=== PATIENT | male | born 1965 | race Caucasian/White ===

== ENCOUNTER 2020-02-26 07:26 | Outpatient (REF) | payer OTHER, SELFPAY ==
[2020-02-26 08:26] LABS: Hemoglobin 14.9 g/dl (14.0-18.0); Mean Corpuscular HGB Conc 33.1 g/dl (31.0-36.0); Mean Corpuscular Hemoglobin 29.7 pg (27.0-33.0); Mean Corpuscular Volume 89.6 fL (80-98); Mean Platelet Volume 10.3 fL (9.4-12.4); Platelet Count 195 X10*3/uL (160-400); Red Blood Count 5.02 X10*6/uL (4.60-5.80); Red Cell Distribution Width 12.5 % (11.0-16.0)
[2020-02-26 08:57] LABS: Alanine Aminotransferase 28 U/L (0-40); Albumin Level 4.2 g/dL (3.5-5.0); Alkaline Phosphatase 75 U/L (39-117); Anion Gap 10 (12-20); Aspartate Amino Transferase 18 U/L (5-37); Bilirubin Total 1.4 mg/dL (0.0-1.0); Blood Urea Nitrogen 25 mg/dL (9-16); Calcium 8.2 mg/dL (8.4-10.2); Carbon Dioxide 31 mmol/L (22-29); Chloride 104 mmol/L (96-108); Cholesterol 183 mg/dL; Estimated Glomerular Filt Rate > 60; Glucose Fasting 95 mg/dL (60-99); HDL Cholesterol 44 mg/dL; LDL Cholesterol Calculated 124 mg/dl; Potassium 4.6 mmol/l (3.3-5.1); Sodium 140 mmol/L (135-145); Total Protein 6.9 g/dL (6.5-8.0); Triglycerides 77 mg/dL
[2020-02-26 09:19] LABS: Prostate Specific Antigen Scr 0.48 ng/mL (<0.05-4.0)
[2020-02-26 09:58] LABS: Glucose Urine UA NEG (NEG); Leukocyte Esterase Urine NEG (NEG); Nitrite Urine NEG (NEG); PH 6.5 (5.0-8.0); Specific Gravity - Urine 1.025 (1.005-1.025); Urine Blood NEG (NEG); Urine Ketones NEG (NEG); Urine Protein NEG (NEG-TRACE)
[2020-02-26 10:03] LABS: Appearance Urine CLEAR; Color Urine YELLOW
[2020-02-26 10:54] LABS: RBC Urine 0-2 /HPF (0); WBC Urine 0-2 /HPF (0-4)
[2020-02-26 10:55] LABS: Mucus Urine 1+ /LPF
== END 2020-02-26 07:27 | disposition home or self-care (01) ==
LOC: HO.LAB 07:26
PROVIDERS: PCP Internal Medicine; Visit Provider Internal Medicine
DX: Z00.00 Encounter for general adult medical examination without abnormal findings (principal); N40.0 Benign prostatic hyperplasia without lower urinary tract symptoms
CPT/HCPCS: 36415; 80053; 80061; 81001; 84153; 85027

== ENCOUNTER 2021-10-24 14:05 | Outpatient (REF) | payer OTHER, SELFPAY ==
[2021-10-24 16:35] LABS: MANUAL DIFF FLAG NO
[2021-10-24 16:43] LABS: Basophils Absolute Auto 0.1 X10*3/uL (0.0-0.2); Eosinophils Absolute Auto 0.2 X10*3/uL (0.0-0.4); Eosinophils Percent Auto 3.1 % (0-4); Hematocrit 45.3 % (42.0-52.0); Hemoglobin 15.6 g/dl (14.0-18.0); Imm Gran Abs Auto 0.03 X10*3/uL (0.00-0.03); Imm Gran Pct Auto 0.4 % (0.0-0.4); Lymphocytes Absolute Auto 1.7 X10*3/uL (1.2-4.9); Lymphocytes Percent Auto 23.6 % (20-40); Mean Corpuscular HGB Conc 34.4 g/dl (31.0-36.0); Mean Corpuscular Hemoglobin 30.1 pg (27.0-33.0); Mean Corpuscular Volume 87.5 fL (80.0-98.0); Mean Platelet Volume 10.7 fL (9.4-12.4); Monocytes Absolute Auto 0.7 X10*3/uL (0.1-1.2); Monocytes Percent Auto 9.8 % (2-11); Neutrophils Absolute Auto 4.4 x10*3/uL (2.0-8.3); Neutrophils Percent Auto 62.1 % (45-73); Platelet Count 180 X10*3/uL (160-400); Red Blood Count 5.18 X10*6/uL (4.60-5.80); Red Cell Distribution Width 12.7 % (11.0-16.0); White Blood Count 7.1 X10*3/uL (4.8-10.8)
[2021-10-24 16:43] LABS: Appearance Urine HAZY; Color Urine YELLOW; Glucose Urine UA NEG (NEG); Leukocyte Esterase Urine NEG (NEG); Nitrite Urine NEG (NEG); Specific Gravity - Urine >= 1.030 (1.005-1.025); Urine Blood TRACE (NEG); Urine Ketones NEG (NEG); Urine Protein NEG (NEG-TRACE)
[2021-10-24 16:55] LABS: Mucus Urine 2+ /LPF; Squamous Epithelial Cell Urine TRACE /LPF; WBC Urine 0 /HPF (0-4)
[2021-10-24 17:32] LABS: Alanine Aminotransferase 41 U/L (0-40); Albumin Level 4.3 g/dL (3.5-5.0); Alkaline Phosphatase 90 U/L (39-117); Anion Gap 12 (12-20); Aspartate Amino Transferase 25 U/L (5-37); Bilirubin Total 1.3 mg/dL (0.0-1.0); Blood Urea Nitrogen 25 mg/dL (9-16); Calcium 8.9 mg/dL (8.4-10.2); Carbon Dioxide 27 mmol/L (22-29); Chloride 104 mmol/L (96-108); Cholesterol 218 mg/dL; Estimated Glomerular Filt Rate > 60; Glucose Fasting 91 mg/dL (60-99); HDL Cholesterol 45 mg/dL; LDL Cholesterol Calculated 143 mg/dl; Potassium 4.5 mmol/L (3.3-5.1); Sodium 138 mmol/L (135-145); Total Protein 7.2 g/dL (6.5-8.0); Triglycerides 150 mg/dL
[2021-10-24 17:53] LABS: PSA,Total (Free>4and<10) 0.63 ng/mL (0.00-4.00)
== END 2021-10-24 14:06 | disposition home or self-care (01) ==
LOC: HO.HMGCLDS 14:05
PROVIDERS: Visit Provider Internal Medicine
DX: Z00.00 Encounter for general adult medical examination without abnormal findings (principal); Z12.5 Encounter for screening for malignant neoplasm of prostate
CPT/HCPCS: 36415; 80053; 80061; 81001; 84153; 85025

== ENCOUNTER 2021-11-28 15:22 | Outpatient (REF) | payer OTHER, SELFPAY ==
--- NOTE | ~2021-11-28 | US_ITS ---
EXAMINATION: US RETROPERITONEAL COMPLETE (RENAL) CLINICAL INFORMATION: Hematuria, unspecified. COMPARISON: US retroperitoneal complete (renal) 02/12/2019. US abdomen complete 10/16/2017. TECHNIQUE: Real-time imaging of the kidneys and bladder. FINDINGS: RIGHT KIDNEY: 11.0 x 5.3 x 5.6 cm (SAG x AP x TRV). The kidney is normal in size, contour, and echogenicity. Renal cortical thickness is normal. The right kidney is abnormally rotated with anterior orientation of the renal pelvis. There is a new hyperechoic mass in the lower pole of the right kidney measuring 2.6 cm. No renal calculi or hydronephrosis. LEFT KIDNEY: 12.9 x 5.8 x 6.3 cm (SAG x AP x TRV). The kidney is normal in size, contour, and echogenicity. Renal cortical thickness is normal. There is a 5 mm echogenic density in the lower pole suggestive of a stone. There is a 1 cm cyst in the midpole. No hydronephrosis. BLADDER: Not optimally distended.. Bilateral ureteral jets are demonstrated. Prevoid bladder volume is 157 mL. Postvoid bladder volume is 11 mL. ADDITIONAL FINDINGS: The prostate gland measures 4.3 x 4.4 x 4.1 cm, volume 41 mL. There are calcifications in the prostate gland. US/US retroperitoneal comp IMPRESSION: New 2.6 cm hyperechoic solid-appearing mass in the lower pole of the right kidney. Appearance is worrisome for neoplasm. Follow-up CT or MRI of the kidneys with and without contrast is recommended. Small left renal stone. Small left renal cyst. Findings will be communicated by the [place] work flow materials supervisor.
== END 2021-11-28 15:23 | disposition home or self-care (01) ==
LOC: HO.HMGCX 15:22
PROVIDERS: PCP Internal Medicine; Visit Provider Internal Medicine
DX: R31.9 Hematuria, unspecified (principal)
CPT/HCPCS: 76770

== ENCOUNTER 2021-12-03 08:11 | Outpatient (REF) | payer OTHER, SELFPAY ==
--- NOTE | ~2021-12-03 | CT_ITS ---
EXAMINATION: CT ABDOMEN AND PELVIS WITHOUT AND WITH CONTRAST CLINICAL INFORMATION: Hematuria. Follow-up left renal mass. COMPARISON: Previous ultrasound 11/28/2021 TECHNIQUE: Noncontrast CT of the abdomen and pelvis is performed followed by split bolus contrast-enhanced images using 85 mL Omnipaque 350 contrast.? Postcontrast imaging is performed during the combined nephrogram and excretion phase. Sagittal and coronal reformatted images were obtained on the technologist's workstation for both the precontrast and postcontrast phases. This CT examination was performed using dose optimization techniques as appropriate, variously including the following: *Automated exposure control *Adjustment of mA and/or kV according to patient size (this includes techniques or standardized protocols for targeted exams where dose is matched to indication/reason for exam; i.e. extremities or head) *Use of iterative reconstruction technique DLP: 1151 mGy-cm FINDINGS: LUNG BASES: The visualized lung bases are unremarkable. LIVER, GALLBLADDER, AND BILIARY TREE: The liver is low in attenuation suggestive of fatty infiltration. No focal liver lesion. Normal gallbladder. No biliary duct dilatation. PANCREAS: Unremarkable. SPLEEN: Unremarkable. ADRENAL GLANDS: Unremarkable. KIDNEYS AND URETERS: There is abnormal rotation of the right kidney with anterior orientation of the renal pelvis. There is a 2.8 x 2.5 cm lesion in the anterior medial lower pole of the right kidney. Hounsfield units precontrast measure 31. Delayed CT urogram Hounsfield units measure 68 suggestive of an enhancing solid lesion. There is a second low-attenuation lesion in the anterior lower pole the right kidney measuring 5 mm. This is difficult to appreciate precontrast. Hounsfield units postcontrast measure 14 axial image 53 series 8 and this probably represents a cyst. There is a third low-attenuation lesion in the upper pole right kidney measuring 8 mm. This is again difficult to visualize precontrast. Hounsfield units postcontrast measure 25 and this may represent a complex cyst axial image 269 series 9. There is a 1 cm cyst in the lower pole of the left kidney. No hydronephrosis is seen. The collecting systems are normal. Ureters are normal. BLADDER: The bladder is normal. GASTROINTESTINAL TRACT: The small and large bowel are unremarkable. The appendix is unremarkable. ABDOMINAL WALL: No significant hernia is appreciated. LYMPH NODES: Normal. VASCULAR: Unremarkable. PELVIC VISCERA: Unremarkable. OSSEUS STRUCTURES: There are degenerative changes of the spine. CT/CT urogram IMPRESSION: 2.8 x 2.5 cm solid renal mass suggestive of neoplasm in the anterior medial lower pole of the right kidney. Bilateral renal cysts. Fatty liver. Findings will be communicated by the [place] work flow tow driver.
[2021-12-03 12:01] LABS: Urine Cytology See Pathology rpt
[2021-12-03 12:06] LABS: Alanine Aminotransferase 38 U/L (0-40); Albumin Level 4.2 g/dL (3.5-5.0); Alkaline Phosphatase 87 U/L (39-117); Anion Gap 14 (12-20); Aspartate Amino Transferase 21 U/L (5-37); Bilirubin Total 1.5 mg/dL (0.0-1.0); Blood Urea Nitrogen 16 mg/dL (9-16); Calcium 8.6 mg/dL (8.4-10.2); Carbon Dioxide 25 mmol/L (22-29); Chloride 103 mmol/L (96-108); Estimated Glomerular Filt Rate > 60; Glucose Random 100 mg/dL (60-115); Sodium 138 mmol/L (135-145); Total Protein 7.2 g/dL (6.5-8.0)
[2021-12-03 12:12] LABS: Appearance Urine CLEAR; Color Urine STRAW; Glucose Urine UA NEG (NEG); Leukocyte Esterase Urine NEG (NEG); Nitrite Urine NEG (NEG); Urine Blood TRACE (NEG); Urine Ketones NEG (NEG); Urine Protein NEG (NEG-TRACE)
[2021-12-03 12:43] LABS: RBC Urine 0-2 /HPF (0); Squamous Epithelial Cell Urine 1+ /LPF; WBC Urine 0-2 /HPF (0-4)
[2021-12-03] MEDS: iohexoL 350 MG/ML 100 ML INFUS..BTL 85 ML IV (15:03)
== END 2021-12-03 08:12 | disposition home or self-care (01) ==
LOC: HO.HMGCLDS 08:11
PROVIDERS: PCP Internal Medicine; Visit Provider Internal Medicine
DX: N28.89 Other specified disorders of kidney and ureter (principal); R31.9 Hematuria, unspecified
CPT/HCPCS: 36415; 74178; 80053; 81001; 88112; 88121

== ENCOUNTER 2021-12-03 13:49 | Outpatient (REF) | payer OTHER, SELFPAY | END 2021-12-03 13:50 | disposition home or self-care (01) | LOC: HO.CT 13:49 | PROVIDERS: PCP Internal Medicine; Visit Provider Internal Medicine | DX: Z13.89 Encounter for screening for other disorder (principal) ==

== ENCOUNTER → 2021-12-13 09:35 | Outpatient (BNVA) | payer OTHER, SELFPAY | PROVIDERS: PCP Internal Medicine; Visit Provider Urology | DX: R32 Unspecified urinary incontinence (principal); N40.0 Benign prostatic hyperplasia without lower urinary tract symptoms; N28.89 Other specified disorders of kidney and ureter | CPT/HCPCS: 51798 ==

== ENCOUNTER 2022-01-10 12:04 | Day surgery (SDC) | payer OTHER, SELFPAY ==
[2022-01-10] VITALS (8 sets, daily range): BP systolic 103–152; BP diastolic 67–99; PULSE 83–93; RESP 16–18; TEMP 36.2–36.7; O2SAT 94–96; BMI 33.2
--- NOTE | ~2022-01-10 | CT_ITS ---
PROCEDURE: CT GUIDED BIOPSY, KIDNEY CLINICAL INFORMATION: Right renal mass COMPARISON: December 03, 2021 and ultrasound of February 12, 2019 TECHNIQUE: CT fluoroscopic-guided core biopsy right renal mass. CONSCIOUS SEDATION: The patient received intravenous conscious sedation under my direct supervision. A registered nurse monitored the patient and the patient's vital signs throughout the procedure. The total sedation time was 22 minutes. A total of 2 mg of Versed and 100 mcg fentanyl was given for good effect. This CT examination was performed using dose optimization techniques as appropriate, variously including the following: *Automated exposure control *Adjustment of mA and/or kV according to patient size (this includes techniques or standardized protocols for targeted exams where dose is matched to indication/reason for exam; i.e. extremities or head) *Use of iterative reconstruction technique DLP: 374 mGy-cm FINDINGS: Informed consent was obtained from the patient prior to the procedure. During this process, the procedure and potential alternatives were explained, along with the intended outcome and benefits. The risks of the procedure, as well as the risk of not doing the procedure, were discussed. The patient was given the opportunity to ask questions regarding the procedure and appeared competent to make medical decisions. A signed consent form which documents this discussion was placed in the medical record. Using sterile technique and CT fluoroscopic guidance from a lateral approach a 17-gauge guiding needle was directed to the mass anterior aspect of the right kidney. 3 18-gauge core biopsies were then performed. Patient tolerated procedure without difficulty. No postprocedure hemorrhage was identified. CT/CT biopsy renal RT IMPRESSION: CT fluoroscopic guided biopsy right renal mass.
[2022-01-10 13:17] LABS: MANUAL DIFF FLAG NO
[2022-01-10 13:21] LABS: Basophils Absolute Auto 0.1 X10*3/uL (0.0-0.2); Basophils Percent Auto 0.9 % (0-2); Eosinophils Absolute Auto 0.3 X10*3/uL (0.0-0.4); Eosinophils Percent Auto 4.6 % (0-4); Hematocrit 45.2 % (42.0-52.0); Hemoglobin 15.6 g/dl (14.0-18.0); Imm Gran Abs Auto 0.01 X10*3/uL (0.00-0.03); Imm Gran Pct Auto 0.2 % (0.0-0.4); Lymphocytes Absolute Auto 1.3 X10*3/uL (1.2-4.9); Lymphocytes Percent Auto 21.9 % (20-40); Mean Corpuscular HGB Conc 34.5 g/dl (31.0-36.0); Mean Corpuscular Hemoglobin 29.5 pg (27.0-33.0); Mean Corpuscular Volume 85.6 fL (80.0-98.0); Mean Platelet Volume 9.7 fL (9.4-12.4); Monocytes Absolute Auto 0.6 X10*3/uL (0.1-1.2); Monocytes Percent Auto 10.4 % (2-11); Neutrophils Absolute Auto 3.5 x10*3/uL (2.0-8.3); Platelet Count 157 X10*3/uL (160-400); Red Blood Count 5.28 X10*6/uL (4.60-5.80); Red Cell Distribution Width 12.6 % (11.0-16.0); White Blood Count 5.7 X10*3/uL (4.8-10.8)
[2022-01-10 13:34] LABS: INTERNATIONAL NORM RATIO 1.1 (0.9-1.1); Prothrombin Time 12.4 SEC (10.0-13.1)
[2022-01-10 13:36] LABS: Partial Thromboplastin Time 32.3 SEC (26.0-36.4)
== END 2022-01-10 17:30 | disposition home or self-care (01) ==
PROVIDERS: Radiology Diagnostic Radiology; PCP Internal Medicine; Visit Provider Radiology Diagnostic Radiology
DX: D30.01 Benign neoplasm of right kidney (principal); N40.0 Benign prostatic hyperplasia without lower urinary tract symptoms; Z80.0 Family history of malignant neoplasm of digestive organs; Z79.899 Other long term (current) drug therapy; Z88.0 Allergy status to penicillin; Z88.1 Allergy status to other antibiotic agents
CPT/HCPCS: 36415; 50200; 77012; 85025; 85610; 85730; 88305; 88341; 88342; 99152; J2250; J3010

== ENCOUNTER 2022-01-14 12:13 | Outpatient (REF) | payer OTHER, SELFPAY ==
[2022-01-14 14:00] LABS: Appearance Urine Clear; Color Urine Yellow; Glucose Urine UA Negative (Negative); Leukocyte Esterase Urine Trace (Negative); Nitrite Urine Negative (Negative); PH 5.5 (5.0-9.0); Specific Gravity - Urine 1.025 (1.005-1.025); UMIC TRIGGER UA YES; Urine Blood Negative (Negative); Urine Ketones Negative (Negative); Urine Protein Negative (Neg-Trace)
[2022-01-14 14:07] LABS: Bacteria Urine None Seen (None Seen); Hyaline Casts Urine 0-2 /LPF (0-2); RBC Urine 0-2 /HPF (0-2); Squamous Epithelial Cell Urine 0-2 /HPF (0-2); WBC Urine 0-5 /HPF (0-5)
== END 2022-01-14 12:14 | disposition home or self-care (01) ==
LOC: HO.HMGCLDS 12:13
PROVIDERS: PCP Internal Medicine; Visit Provider Urology
DX: R31.9 Hematuria, unspecified (principal)
CPT/HCPCS: 81001; 87086

== ENCOUNTER → 2022-08-20 13:11 | Outpatient (BNVA) | payer OTHER, SELFPAY | PROVIDERS: PCP Internal Medicine; Visit Provider Urology | DX: Z13.89 Encounter for screening for other disorder (principal) ==

== ENCOUNTER 2022-08-27 15:07 | Outpatient (REF) | payer OTHER, SELFPAY ==
--- NOTE | ~2022-08-27 | US_ITS ---
EXAMINATION: US RETROPERITONEAL LIMITED (RENAL ONLY) CLINICAL INFORMATION: Calculus of kidney, right renal mass. COMPARISON: CT urogram 12/03/2021. Ultrasound retroperitoneal complete (renal) 11/28/2021 and 02/12/2019. TECHNIQUE: Real-time imaging of the kidneys. FINDINGS: RIGHT KIDNEY: 11.0 x 7.1 x 5.8 cm (SAG x AP x TRV). The kidney is normal in size, contour, and echogenicity. Renal cortical thickness is normal. The right kidney is slightly malrotated. There is a 2.5 x 2.5 x 2.7 cm solid hyperechoic mass in the central mid right kidney. There is a 3 mm echogenic focus with twinkle artifact questionable for a stone in the lower pole. No hydronephrosis. LEFT KIDNEY: 13.4 x 5.6 x 6.1 cm (SAG x AP x TRV). The kidney is normal in size, contour, and echogenicity. Renal cortical thickness is normal. There is a 1 cm cyst in the midpole. There is a 4 mm echogenic focus with twinkle artifact questionable for a stone in the lower pole. No hydronephrosis. US/US renal BI IMPRESSION: 2.5 x 2.5 x. 2.7 cm solid hyperechoic mass in the central mid right kidney. This is not appreciably changed in size from most recent previous ultrasound or CT November 2021. Question small bilateral renal stones.
== END 2022-08-27 15:08 | disposition home or self-care (01) ==
LOC: HO.HMGCX 15:07
PROVIDERS: PCP Internal Medicine; Visit Provider Urology
DX: N20.0 Calculus of kidney (principal); D30.00 Benign neoplasm of unspecified kidney
CPT/HCPCS: 76775

== ENCOUNTER 2023-02-10 06:28 | Outpatient (REF) | payer OTHER, SELFPAY ==
[2023-02-10 12:24] LABS: Blood Urea Nitrogen 21 mg/dL (9-16); Estimated Glomerular Filt Rate > 60
== END 2023-02-10 06:29 | disposition home or self-care (01) ==
LOC: HO.HMGCLDS 06:28
PROVIDERS: PCP Internal Medicine; Visit Provider Urology
DX: D30.00 Benign neoplasm of unspecified kidney (principal)
CPT/HCPCS: 36415; 82565; 84520

== ENCOUNTER 2023-02-13 07:23 | Outpatient (REF) | payer OTHER, SELFPAY ==
--- NOTE | ~2023-02-13 | CT_ITS ---
EXAMINATION: CT ABDOMEN WITHOUT AND WITH CONTRAST CLINICAL INFORMATION: Benign neoplasm of kidney. COMPARISON: Renal ultrasound 08/27/2022, renal biopsy 01/10/2022, CT urogram 12/03/2021. TECHNIQUE: Contiguous axial thin section helical images of the abdomen were performed before and after the administration of oral contrast and 85 mL of Omnipaque 350 intravenous contrast. The data set was reformatted in the coronal and sagittal planes and reviewed on an independent workstation. This CT examination was performed using dose optimization techniques as appropriate, variously including the following: *Automated exposure control *Adjustment of mA and/or kV according to patient size (this includes techniques or standardized protocols for targeted exams where dose is matched to indication/reason for exam; i.e. extremities or head) *Use of iterative reconstruction technique DLP: 938 mGy-cm FINDINGS: LUNG BASES: The visualized lung bases are unremarkable. LIVER, GALLBLADDER, AND BILIARY TREE: The liver is enlarged measuring 19.6 cm in cephalocaudad dimension with decreased attenuation on non-contrast imaging consistent with hepatic steatosis. No focal hepatic lesion or biliary ductal dilatation is present. The gallbladder is unremarkable with no evidence of radiopaque gallstones, gallbladder wall thickening, or obvious pericholecystic inflammatory changes. PANCREAS: Unremarkable. SPLEEN: Unremarkable. ADRENAL GLANDS: Unremarkable. 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 By my measurements on the current study this measures 3.7 x 3.1 x 3.2 cm and on the prior study measured 3.0 x 2.6 x 2.9 cm (5: 1:15 compare prior 8:50). Again seen is a benign 1.3 cm left Bosniak class I renal cyst which needs no additional imaging or followup. No additional solid masses. No nephrolithiasis. No hydronephrosis. GASTROINTESTINAL TRACT: The visualized bowel is unremarkable. ABDOMINAL WALL: No significant hernia is appreciated. LYMPH NODES: No retroperitoneal lymphadenopathy. VASCULAR: Unremarkable. OSSEOUS STRUCTURES: Mild degenerative changes are present in the spine. No bony destructive lesions. CT/CT abdomen wo/w IV con IMPRESSION: The biopsy-proven right renal oncocytoma has increased in size slightly. Incidental note made of an enlarged fatty liver and benign Bosniak class I left renal cyst which needs no additional imaging or followup. Fleischner guidelines were followed.
[2023-02-13] MEDS: iohexoL 350 MG/ML 100 ML INFUS..BTL IV (08:33)
== END 2023-02-13 07:24 | disposition home or self-care (01) ==
LOC: HO.CT 07:23
PROVIDERS: PCP Internal Medicine; Visit Provider Urology
DX: D30.00 Benign neoplasm of unspecified kidney (principal)
CPT/HCPCS: 74170; Q9967

== ENCOUNTER 2023-04-09 12:14 | Outpatient (AMB) | payer OTHER, SELFPAY ==
--- NOTE | 2023-04-09 12:15 | MHC.OFFVIS ---
Intake Intake Visit Reasons: med review/ct results Intake Note: Patient is Present for Telephone Follow Up Med Review Urology Med: Alfuzosin Antibiotic Allergy: Amoxicillin, Penicillin Blood Thinner: None Allergies amoxicillin [AMOXICILLIN] Allergy (Unknown, Verified 04/09/23 12:16) RASH penicillin G Allergy (Unknown, Verified 04/09/23 12:16) Rash finasteride Adverse Reaction (Intermediate, Verified 04/09/23 12:16) LOSS GENITAL SENSATION tamsulosin Adverse Reaction (Intermediate, Verified 04/09/23 12:16) Drowsy Medication List - Last Reconciled 04/09/23 by Kd Arango MD alfuzosin ER 10 mg PO BEDTIME 90 days pantoprazole 40 mg PO DAILY HPI HPI Comments History of Present Illness Details Pineda is a pleasant male. He is a patient of Dr. Streeter. He is seen for the following urologic conditions - lower urinary tract symptoms - renal lesion - oncoytoma Telemedicine Evaluation 15 min Consultation [employer] [place] Video attempted Continue response to alfuzosin Surveillance imaging planned kidneys 12m US Lower urinary tract symptoms Current therapy alfuzosin Prior therapy with alpha-shoaib but had been lightheaded Trial of finasteride with PCP however this led to declined libido Symptoms include nocturia x3, hesitancy, incomplete emptying PSA 11/09 0.63 Renal mass Right renal mass detected during incidental imaging for micro hematuria Cytology 12/10 negative for high-grade Imaging - 12/10 CT urogram 2.6 cm right medial anterior lower question lesion. Enhancement not consistent with RCC - 01/10 renal biopsy oncocytoma Surveillance imaging [facility] Medical History Renal mass Annual physical exam BPH (benign prostatic hyperplasia) Abnormal colonoscopy Surgical History History of removal of cyst Family History Father Stomach cancer Mini stroke Smoker COPD (chronic obstructive pulmonary disease) Mother No problems noted. 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 No major barriers to patient understanding were identified. An opportunity to ask questions regarding the treatment plan was provided. All questions were answered. The patient expressed understanding and agreement with the above treatment plan. The patient is aware they should contact our office by phone for worsening of their current condition or the appearance of new urologic symptoms. Compliance is encouraged with any medications and followup testing that is ordered. It is a privilege to participate in the urologic care of your patient. If you have any questions or concerns regarding treatment for the above conditions, or other urologic issues, please do not hesitate to contact me. The office telephone contact is [phone]. This note is constructed using voice recognition software. While every effort has been made to ensure accuracy head of operation and logistics errors may have been included. Yours sincerely, Dr Kd Arango MD, EDITA 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
== END 2023-04-09 14:16 | disposition home or self-care (01) ==
LOC: HO.HUSH 12:14
PROVIDERS: PCP Internal Medicine; Visit Provider Urology
DX: N40.0 Benign prostatic hyperplasia without lower urinary tract symptoms (principal); D30.00 Benign neoplasm of unspecified kidney
CPT/HCPCS: 99213

== ENCOUNTER → 2023-04-09 12:14 | Outpatient (BNVA) | payer OTHER, SELFPAY | PROVIDERS: PCP Internal Medicine; Visit Provider Urology ==

== ENCOUNTER 2023-07-02 08:14 | Outpatient (AMB) | payer OTHER, SELFPAY ==
--- NOTE | 2023-07-02 08:17 | MHC.PC.OV ---
Vital Signs 07/02/23 08:18 Height 6 ft 1 in Weight 244 lb BMI 32.2 BP 120/74 Blood Pressure Location Lt brachial Position Sitting Pulse 71 Pulse Source Pulse Oximeter Pulse Oximetry (%) 97 Oxygen Delivery Method Room Air Intake Visit Reasons: Annual PE Intake Note: Pt is here today for PE. Allergies amoxicillin [AMOXICILLIN] Allergy (Unknown, Verified 07/02/23 08:20) RASH penicillin G Allergy (Unknown, Verified 07/02/23 08:20) Rash finasteride Adverse Reaction (Intermediate, Verified 07/02/23 08:20) LOSS GENITAL SENSATION tamsulosin Adverse Reaction (Intermediate, Verified 07/02/23 08:20) Drowsy Medication List - Last Reconciled 07/02/23 by Michelle Streeter MD alfuzosin ER 10 mg PO BEDTIME 90 days pantoprazole 40 mg PO DAILY Tobacco use date assessed: 07/02/23 Dental Screening Dental Screen Date: 07/02/23 Did you have a dental visit in the last 12 months?: Yes Did you have a dental problem in the last 6 months where you did not have access to dental care?: No Was dental information given to patient?: Patient has dentist HPI Annual PE HPI Details Pt presents for PE. [facility] Medical History (Updated 07/02/23 @ 09:00 by Michelle Streeter MD) Renal mass Annual physical exam BPH (benign prostatic hyperplasia) Abnormal colonoscopy Surgical History History of removal of cyst Family History Father Stomach cancer Mini stroke Smoker COPD (chronic obstructive pulmonary disease) Mother No problems noted. Maternal Grandmother Lung cancer Social History Household Members Other:: exercise, Housing: House Alcohol intake: current Alcohol intake frequency: holidays/special occasions only Patient Tobacco Use Status: Never used Tobacco e-Cigarette/Vaping Use: Never Used Current occupational status: employed Cognitive needs: No Hearing needs: No Vision needs: Yes Questionnaire Thrive Questionnaire Date Thrive assessed: 10/24/21 I am a: Patient What is your living situation today?: I have a steady place to live Within the past 12 months, did the food you bought not last and you didn't have the money to get more?: Never true Within the past 12 months, did you worry whether your food would run out before you got money to buy more?: Never true THRIVE Score: 0 AUDIT C Alcohol Use Questionnaire (AUDIT-C) 1. How often do you have a drink containing alcohol?: Monthly or less 2. How many drinks containing alcohol do you have on a typical day when you are drinking?: 1 or 2 3. How often do you have six or more drinks on one occasion?: Never Total Score: 1 LESLY-7 AMB Questionnaire LESLY-7 Date LESLY - 7 assessed: 10/24/21 Feeling nervous, anxious, or on edge: 1 = Several days Not being able to stop or control worryin = Several days Worrying too much about different things: 1 = Several days Trouble relaxin = Several days Being so restless that it is hard to sit still: 1 = Several days Becoming easily annoyed or irritable: 0 = Not at all Feeling afraid as if something awful might happen: 1 = Several days Total LESLY-7 score (0-4 normal; 5-9 mild; 10-14 moderate; 15-21 severe): 6 Source: Developed by Drs. Jose Mejia, Dara Cope, Raj Don and colleagues, with an educational kevin from [employer]. Review of Systems Const All systems reviewed & are unremarkable except as noted in HPI and below Reports no additional complaints Eyes Reports no additional complaints ENT Reports no additional complaints Card Reports no additional complaints Resp Reports no additional complaints GI Reports no additional complaints Reports no additional complaints Physical exam (Primary Care) Vital Signs: Last Vital Signs Pulse 71 07/02/23 08:18 BP 120/74 07/02/23 08:18 Pulse Ox 97 07/02/23 08:18 Oxygen Delivery Method Room Air 07/02/23 08:18 BMI result Body Mass Index 32.2 Tobacco/Smoking Status: Tobacco use Status Tobacco use date assessed 07/02/23 07/02/23 08:23 Patient Tobacco Use Status Never used Tobacco 07/02/23 08:23 e-Cigarette/Vaping Use Never Used 07/02/23 08:18 Thrive Assessment: Date of Thrive Assessment Date Thrive assessed 10/24/21 07/02/23 08:18 Const General: no acute distress HENMT Head: Yes normal to inspection Ears: hearing grossly normal bilaterally Eyes General: appearance normal, both eyes and all related structures Neck Neck: Yes no lymphadenopathy and Yes supple Resp Effort & Inspection: normal respiratory effort Auscultation: clear to auscultation bilaterally Cardio Rhythm: regular rhythm Heart sounds: S1 normal heart sound present and S2 normal heart sound present GI Inspection: Yes normal to inspection Palpation (GI): Soft to palpation Percussion: Yes normal to percussion Auscultation: normal bowel sounds Assessment and Plan Assessment & Plan (1) Hematuria: Comment: f/u urology Code(s): R31.9 - Hematuria, unspecified Plan: f/u urology (2) Abnormal colonoscopy: Comment: 06/2019 polyps , Dr.Clifford mora 4 yrs Code(s): R93.3 - Abnormal findings on diagnostic imaging of other parts of digestive tract (3) Annual physical exam: Code(s): Z00.00 - Encounter for general adult medical examination without abnormal findings Plan: well balanced diet regular exercise weight loss discussed with the patient. 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: Comment: 12/10 right lower pole 2.5 cm lesion, f/u urology, CT slightly increase in size 3.7 x3.1x3.2 cm 02/10 Code(s): D30.00 - Benign neoplasm of unspecified kidney Orders: Orders TSH reflex Free T4 Today N40.0 - Benign prostatic hyperplasia without lower urinary tract symptoms, R31.9 - Hematuria, unspecified, R93.3 - Abnormal findings on diagnostic imaging of other parts of digestive tract, Z00.00 - Encounter for general adult medical examination without abnormal findings PSA,Total (Free>4and<10) Today N40.0 - Benign prostatic hyperplasia without lower urinary tract symptoms, R31.9 - Hematuria, unspecified, R93.3 - Abnormal findings on diagnostic imaging of other parts of digestive tract, Z00.00 - Encounter for general adult medical examination without abnormal findings Comprehensive [place]. Panel Fast 365 Days K21.9 - Gastro-esophageal reflux disease without esophagitis, N40.0 - Benign prostatic hyperplasia without lower urinary tract symptoms, Z00.00 - Encounter for general adult medical examination without abnormal findings Complete Blood Count Auto Diff 365 Days K21.9 - Gastro-esophageal reflux disease without esophagitis, N40.0 - Benign prostatic hyperplasia without lower urinary tract symptoms, Z00.00 - Encounter for general adult medical examination without abnormal findings Lipid Panel 365 Days K21.9 - Gastro-esophageal reflux disease without esophagitis, N40.0 - Benign prostatic hyperplasia without lower urinary tract symptoms, Z00.00 - Encounter for general adult medical examination without abnormal findings Comprehensive [place]. Panel Fast Today N40.0 - Benign prostatic hyperplasia without lower urinary tract symptoms, R31.9 - Hematuria, unspecified, R93.3 - Abnormal findings on diagnostic imaging of other parts of digestive tract, Z00.00 - Encounter for general adult medical examination without abnormal findings Complete Blood Count Auto Diff Today N40.0 - Benign prostatic hyperplasia without lower urinary tract symptoms, R31.9 - Hematuria, unspecified, R93.3 - Abnormal findings on diagnostic imaging of other parts of digestive tract, Z00.00 - Encounter for general adult medical examination without abnormal findings Lipid Panel Today N40.0 - Benign prostatic hyperplasia without lower urinary tract symptoms, R31.9 - Hematuria, unspecified, R93.3 - Abnormal findings on diagnostic imaging of other parts of digestive tract, Z00.00 - Encounter for general adult medical examination without abnormal findings UA w Microscopic Today N40.0 - Benign prostatic hyperplasia without lower urinary tract symptoms, R31.9 - Hematuria, unspecified, R93.3 - Abnormal findings on diagnostic imaging of other parts of digestive tract, Z00.00 - Encounter for general adult medical examination without abnormal findings PSA,Total (Free>4and<10) 365 Days K21.9 - Gastro-esophageal reflux disease without esophagitis, N40.0 - Benign prostatic hyperplasia without lower urinary tract symptoms, Z00.00 - Encounter for general adult medical examination without abnormal findings Coding Level of Care Code Est Pt Prev Care 40-64y(03135) Diagnoses Hematuria R31.9 Abnormal colonoscopy R93.3 Annual physical exam Z00.00 BPH (benign prostatic hyperplasia) N40.0 GERD (gastroesophageal reflux disease) K21.9 Oncocytoma determined by biopsy of kidney D30.00
[2023-07-02 08:18] VITALS: BP 120/74; PULSE 71; O2SAT 97; BMI 32.2
== END 2023-07-02 08:49 | disposition home or self-care (01) ==
PROVIDERS: PCP Internal Medicine; Visit Provider Internal Medicine
DX: R31.9 Hematuria, unspecified (principal); R93.3 Abnormal findings on diagnostic imaging of other parts of digestive tract; Z00.00 Encounter for general adult medical examination without abnormal findings; N40.0 Benign prostatic hyperplasia without lower urinary tract symptoms; K21.9 Gastro-esophageal reflux disease without esophagitis; D30.00 Benign neoplasm of unspecified kidney
CPT/HCPCS: 99396

== ENCOUNTER 2023-07-02 08:51 | Outpatient (REF) | payer OTHER, SELFPAY ==
[2023-07-02 11:33] LABS: MANUAL DIFF FLAG NO
[2023-07-02 11:41] LABS: Appearance Urine Clear; Color Urine Yellow; Glucose Urine UA Negative (Negative); Leukocyte Esterase Urine Trace (Negative); Nitrite Urine Negative (Negative); PH 6.5 (5.0-9.0); Specific Gravity - Urine >= 1.030 (1.005-1.025); UMIC TRIGGER UA YES; Urine Blood Negative (Negative); Urine Ketones Negative (Negative); Urine Protein Negative (Neg-Trace)
[2023-07-02 11:44] LABS: Basophils Absolute Auto 0.1 X10*3/uL (0.0-0.2); Eosinophils Absolute Auto 0.2 X10*3/uL (0.0-0.4); Eosinophils Percent Auto 4.4 % (0-4); Hematocrit 45.8 % (42.0-52.0); Hemoglobin 15.7 g/dl (14.0-18.0); Imm Gran Abs Auto 0.01 X10*3/uL (0.00-0.03); Imm Gran Pct Auto 0.2 % (0.0-0.4); Lymphocytes Absolute Auto 1.1 X10*3/uL (1.2-4.9); Lymphocytes Percent Auto 22.2 % (20-40); Mean Corpuscular HGB Conc 34.3 g/dl (31.0-36.0); Mean Corpuscular Hemoglobin 29.5 pg (27.0-33.0); Mean Corpuscular Volume 86.1 fL (80.0-98.0); Mean Platelet Volume 10.5 fL (9.4-12.4); Monocytes Absolute Auto 0.5 X10*3/uL (0.1-1.2); Monocytes Percent Auto 10.5 % (2-11); Neutrophils Absolute Auto 3.1 x10*3/uL (2.0-8.3); Neutrophils Percent Auto 61.7 % (45-73); Platelet Count 160 X10*3/uL (160-400); Red Blood Count 5.32 X10*6/uL (4.60-5.80); Red Cell Distribution Width 12.9 % (11.0-16.0)
[2023-07-02 12:00] LABS: Bacteria Urine None Seen (None Seen); Hyaline Casts Urine 0-2 /LPF (0-2); RBC Urine 0-2 /HPF (0-2); Squamous Epithelial Cell Urine 0-2 /HPF (0-2); WBC Urine 0-5 /HPF (0-5)
[2023-07-02 12:21] LABS: PSA,Total (Free>4and<10) 1.55 ng/mL (0.00-4.00)
[2023-07-02 12:23] LABS: Alanine Aminotransferase 22 U/L (0-40); Albumin Level 4.2 g/dL (3.5-5.0); Alkaline Phosphatase 77 U/L (39-117); Anion Gap 11 (12-20); Aspartate Amino Transferase 18 U/L (5-37); Bilirubin Total 1.7 mg/dL (0.0-1.0); Blood Urea Nitrogen 23 mg/dL (9-16); Calcium 9.2 mg/dL (8.4-10.2); Carbon Dioxide 28 mmol/L (22-29); Chloride 104 mmol/L (96-108); Cholesterol 159 mg/dL (<200); Estimated Glomerular Filt Rate > 60; Glucose Fasting 106 mg/dL (60-99); HDL Cholesterol 37 mg/dL (>40); LDL Cholesterol Calculated 108 mg/dL (<100); Potassium 3.9 mmol/L (3.3-5.1); Sodium 139 mmol/L (135-145); Total Protein 7.3 g/dL (6.5-8.0); Triglycerides 73 mg/dL (<150)
[2023-07-02 12:25] LABS: TSH reflex Free T4 1.59 uIU/mL (0.32-4.0)
== END 2023-07-02 08:52 | disposition home or self-care (01) ==
LOC: HO.HMGCLDS 08:51
PROVIDERS: PCP Internal Medicine; Visit Provider Internal Medicine
DX: Z00.00 Encounter for general adult medical examination without abnormal findings (principal); Z12.5 Encounter for screening for malignant neoplasm of prostate; N40.0 Benign prostatic hyperplasia without lower urinary tract symptoms; R93.3 Abnormal findings on diagnostic imaging of other parts of digestive tract; R31.9 Hematuria, unspecified
CPT/HCPCS: 36415; 80053; 80061; 81001; 84153; 84443; 85025

== ENCOUNTER 2024-02-09 11:02 | Outpatient (AMB) | payer OTHER, SELFPAY ==
--- NOTE | 2024-02-09 11:21 | A.OFFPC_ITS ---
Vital Signs 02/09/24 11:22 Height 6 ft 1 in Weight 251 lb BMI 33.1 BP 126/84 Blood Pressure Location Lt brachial Position Sitting Pulse 69 Pulse Source Pulse Oximeter Pulse Oximetry (%) 98 Oxygen Delivery Method Room Air Intake Visit Reasons: light-headedness Intake Note: Pt is here today for a sick visit. Pt c/o dizziness when laying down on his back. Pt also c/o sinus pressure and ringing in his ears. Allergies amoxicillin [AMOXICILLIN] Allergy (Unknown, Verified 02/09/24 11:28) RASH penicillin G Allergy (Unknown, Verified 02/09/24 11:28) Rash finasteride Adverse Reaction (Intermediate, Verified 02/09/24 11:28) LOSS GENITAL SENSATION tamsulosin Adverse Reaction (Intermediate, Verified 02/09/24 11:28) Drowsy Medication List - Last Reconciled 02/09/24 by Michelle Streeter MD alfuzosin ER 10 mg PO BEDTIME 90 days pantoprazole 40 mg PO DAILY Tobacco use date assessed: 02/09/24 Dental Screening Dental Screen Date: 07/02/23 HPI light-headedness HPI Details Pt c/o tinnitus, nasal congestion, postional vertigo when lying down for 2 weeks, right ear feeling blocked. Patient has for allergies. He denies fever chills change in balanced weakness numbness in extremities or headache PFSH Medical History Renal mass Annual physical exam BPH (benign prostatic hyperplasia) Abnormal colonoscopy Surgical History History of removal of cyst Family History Father Stomach cancer Mini stroke Smoker COPD (chronic obstructive pulmonary disease) Mother No problems noted. Maternal Grandmother Lung cancer Social History Household Members Other:: exercise, Housing: House Alcohol intake: current Alcohol intake frequency: holidays/special occasions only Patient Tobacco Use Status: Never used Tobacco e-Cigarette/Vaping Use: Never Used service: No Current occupational status: employed Cognitive needs: No Hearing needs: No Vision needs: Yes Questionnaire PHQ-9 Over the last 2 weeks, how often have you been bothered by any of the following problems? 1. Little interest or pleasure in doing things: not at all 2. Feeling down, depressed, or hopeless: not at all 3. Trouble falling or staying asleep, or sleeping too much: not at all 4. Feeling tired or having little energy: not at all 5. Poor appetite or overeating: not at all 6. Feeling bad about yourself - or that you are a failure or have let yourself or your family down: not at all 7. Trouble concentrating on things, such as reading the newspaper or watching television: not at all 8. Moving or speaking so slowly that other people could have noticed. Or the opposite - being so fidgety or restless that you have been moving around a lot more than usual: not at all 9. Thoughts that you would be better off or of hurting yourself in some way: not at all Total score: 0 Depression Screening Interpretation: Negative Depression Screening Done: Yes 67308 - PHQ-9 Billing: Yes Source: Developed by Drs. Jose Mejia, Dara Cope, Raj Don and colleagues, with an educational kevin from [employer]. Thrive Questionnaire Date Thrive assessed: 02/09/24 I am a: Patient What is your living situation today?: I have a steady place to live Within the past 12 months, did the food you bought not last and you didn't have the money to get more?: Never true Within the past 12 months, did you worry whether your food would run out before you got money to buy more?: Never true Do you have trouble paying for medicines?: No Do you have trouble getting transportation to medical appointments?: No Do you have trouble paying your heating and electricity bill?: No Do you have trouble taking care of your child, family member or friend?: No Do you have trouble with day-to-day activities such as bathing, preparing meals, shopping, managing finances, etc.?: No Are you currently unemployed and looking for a job?: No Are you interested in more education?: No Please select the resources that you would like help with: None THRIVE Score: 0 AUDIT C Alcohol Use Questionnaire (AUDIT-C) 1. How often do you have a drink containing alcohol?: Never 3. How often do you have six or more drinks on one occasion?: Never Total Score: 0 LESLY-7 AMB Questionnaire LESLY-7 Date LESLY - 7 assessed: 02/09/24 Feeling nervous, anxious, or on edge: 0 = Not at all Not being able to stop or control worryin = Not at all Worrying too much about different things: 0 = Not at all Trouble relaxin = Not at all Being so restless that it is hard to sit still: 0 = Not at all Becoming easily annoyed or irritable: 0 = Not at all Feeling afraid as if something awful might happen: 0 = Not at all Total LESLY-7 score (0-4 normal; 5-9 mild; 10-14 moderate; 15-21 severe): 0 Source: Developed by Drs. Jose Mejia, Dara Cope, Raj Don and colleagues, with an educational kevin from [employer]. LESLY-7 Assessment Billing LESLY-7 Assessment Tool: LESLY-7 Assessment 38265 Review of Systems Const All systems reviewed & are unremarkable except as noted in HPI and below Eyes Reports no additional complaints ENT Reports no additional complaints Card Reports no additional complaints Resp Reports no additional complaints GI Reports no additional complaints Reports no additional complaints Neuro Reports no additional complaints Physical exam (Primary Care) Vital Signs: Last Vital Signs Pulse 69 02/09/24 11:22 BP 126/84 02/09/24 11:22 Pulse Ox 98 02/09/24 11:22 Oxygen Delivery Method Room Air 02/09/24 11:22 BMI result Body Mass Index 33.1 Tobacco/Smoking Status: Tobacco use Status Tobacco use date assessed 02/09/24 02/09/24 11:29 Patient Tobacco Use Status Never used Tobacco 02/09/24 11:21 e-Cigarette/Vaping Use Never Used 02/09/24 11:21 PHQ-9: PHQ-9 Score PHQ-9: Total score 0 02/09/24 11:44 Depression Screening Interpretation: Negative Thrive Assessment: Date of Thrive Assessment Date Thrive assessed 02/09/24 02/09/24 11:29 Const General: no acute distress HENMT Head: Yes normal to inspection Ears: TM's normal bilaterally General nose exam: Normal external nose present and Abnormal mucous membranes and turbinates present pale Face and sinus: Yes normal facial exam and No sinus tenderness Eyes General: appearance normal, both eyes and all related structures Neck Neck: Yes no lymphadenopathy and Yes supple Resp Effort & Inspection: normal respiratory effort Auscultation: clear to auscultation bilaterally Cardio Rhythm: regular rhythm Heart sounds: S1 normal heart sound present and S2 normal heart sound present Coding Level of Care Code Est Pt Level 3 (94888) Diagnoses Benign positional vertigo H81.10 Additional Codes LESLY-7 Assessment Billing - LESLY-7 Assessment Tool: LESLY-7 Assessment 59514 ([id number]) Assessment & Plan Assessment & Plan (1) Benign positional vertigo: Code(s): H81.10 - Benign paroxysmal vertigo, unspecified ear Category: Medical Plan: Patient was advised to antihistamine for 1 week if the symptoms persist meclizine will be prescribed. He will be referred for hearing test. Orders: Referrals Speech and Hearing Referral H91.90 - Unspecified hearing loss, unspecified ear
[2024-02-09 11:22] VITALS: BP 126/84; PULSE 69; O2SAT 98; BMI 33.1
== END 2024-02-09 12:06 | disposition home or self-care (01) ==
PROVIDERS: PCP Internal Medicine; Visit Provider Internal Medicine
DX: H81.10 Benign paroxysmal vertigo, unspecified ear (principal)

== ENCOUNTER → 2024-02-09 11:02 | Outpatient (BNVA) | payer OTHER, SELFPAY | PROVIDERS: PCP Internal Medicine; Visit Provider Internal Medicine | DX: H81.10 Benign paroxysmal vertigo, unspecified ear (principal) | CPT/HCPCS: 96127 ==

== ENCOUNTER 2024-02-16 12:45 | Outpatient (REF) | payer OTHER, SELFPAY | END 2024-02-16 12:46 | disposition home or self-care (01) | LOC: HO.SH 12:45 | PROVIDERS: Visit Provider Internal Medicine | DX: Z01.118 Encounter for examination of ears and hearing with other abnormal findings (principal); H93.13 Tinnitus, bilateral; H91.93 Unspecified hearing loss, bilateral | CPT/HCPCS: 92557; 92567 ==

== ENCOUNTER 2024-03-06 09:03 | Outpatient (AMB) | payer OTHER, SELFPAY ==
[2024-03-06 09:05] VITALS: BP 122/80; PULSE 72; TEMP 36.6; O2SAT 98; BMI 33.1
--- NOTE | 2024-03-06 09:05 | AM.OFFWIN_ITS ---
Intake Vital Signs 03/06/24 09:05 Height 6 ft 1 in Weight 251 lb BMI 33.1 BP 122/80 Blood Pressure Location Lt brachial Position Sitting Pulse 72 Pulse Source Pulse Oximeter Temp 97.9 F Temp Source Temporal Artery Scan Pulse Oximetry (%) 98 Intake Visit Reasons: EP External hemorrhoids Intake Note: pt is here for external hemorrhoids Patient Tobacco Use Status: Never used Tobacco Allergies amoxicillin [AMOXICILLIN] Allergy (Unknown, Verified 03/06/24 09:05) RASH penicillin G Allergy (Unknown, Verified 03/06/24 09:05) Rash finasteride Adverse Reaction (Intermediate, Verified 03/06/24 09:05) LOSS GENITAL SENSATION tamsulosin Adverse Reaction (Intermediate, Verified 03/06/24 09:05) Drowsy Do you need a note to return to daycare/school/sports/work: No HPI HPI Comments History of Present Illness Details 59 y/o male patient who presents to the [facility] in clinic with c/o rectal bleeding and Hemorrhoids. He does endorse constipation. [facility] Medical History Renal mass Annual physical exam BPH (benign prostatic hyperplasia) Abnormal colonoscopy Surgical History History of removal of cyst Family History Father Stomach cancer Mini stroke Smoker COPD (chronic obstructive pulmonary disease) Mother No problems noted. Maternal Grandmother Lung cancer Social History Household Members Other:: exercise, Housing: House Alcohol intake: current Alcohol intake frequency: holidays/special occasions only Patient Tobacco Use Status: Never used Tobacco e-Cigarette/Vaping Use: Never Used service: No Current occupational status: employed Cognitive needs: No Hearing needs: No Vision needs: Yes Review of Systems Const All systems reviewed & are unremarkable except as noted in HPI and below Physical Exam Vital Signs: Last Vital Signs Temp 97.9 F 03/06/24 09:05 Pulse 72 03/06/24 09:05 BP 122/80 03/06/24 09:05 Pulse Ox 98 03/06/24 09:05 BMI result Body Mass Index 33.1 Const General: no acute distress Nutritional Appearance: obese Orientation/consciousness: patient oriented x3 GI Inspection: Yes obesity Palpation (GI): Soft to palpation, not firm, nontender, no guarding, not rigid and No hepatosplenomegaly present Auscultation: normal bowel sounds Rectal Exam - Male: Yes deferred General: Yes deferred Neuro General: patient oriented x3, gait normal and moves all extremities Assessment & Plan Assessment & Plan (1) Rectal bleeding: Code(s): K62.5 - Hemorrhage of anus and rectum Plan: Ordered Hydrocortisone Supp Advise to increase Fiber intake and fluids. Advise to use OTC stool softners. Medications: New hydrocortisone acetate (Anusol-HC) 25 mg WA BEDTIME 12 ea 0RF K62.5 - Hemorrhage of anus and rectum Coding Level of Care Code Est Pt Level 3 (77162) Diagnoses Rectal bleeding K62.5 Time Spent (min) 15
== END 2024-03-06 10:09 | disposition home or self-care (01) ==
PROVIDERS: PCP Internal Medicine; Visit Provider Nurse Practitioner Family
DX: K62.5 Hemorrhage of anus and rectum (principal)

== ENCOUNTER → 2024-03-06 09:03 | Outpatient (BNVA) | payer OTHER, SELFPAY | PROVIDERS: PCP Internal Medicine; Visit Provider Nurse Practitioner Family ==

== ENCOUNTER 2024-03-25 08:22 | Outpatient (REF) | payer OTHER, SELFPAY ==
--- OUTSIDE RECORDS SUMMARY | 2024-03-30 23:56 | XMS_ITS | Data Portability ---
Author Organization [facility] [address] Address [address] [place] [address] Assessment No assessment recorded. Plan of Treatment Reminders Order Date Submit Date Provider Last Modified By Organization Details Last Modified Time Details Appointments None recorded. Lab None recorded. Referral None recorded. Procedures None recorded. Surgeries None recorded. Imaging None recorded. Medication Orders Bactrim DS 800 mg-160 mg tablet [id number], [address] [place], [address], 19:35:57 Patient TargetsNo targets recorded. Patient Instructions Encounter Date Encounter Id Patient Instructions Last Modified By Organization Details Last Modified Time 02/13/2023 [id number] You can take ove r the counter tylenol or ibuprofen per package instructions for the pain. See printed instructions. Follow-up with your doctor if no improvement in 1 week. Seek Emergency Medical evaluation for any worsening symptoms. [email or web address] Not available 02/13/2023 19:35:55 Reason for Referral None Reported. Problems Name Problem SNOMED Code Status Onset Date Resolution Date Notes Provider Name and Address Organization Details Recorded Time Acid reflux [id number] Active 023 [facility] 02/13/2023 18:55:52 Problem Notes None recorded. Medical Equipment None Reported. Allergies Allergen ID Allergen Name Allergen Category Reaction Reaction Severity Criticality Documentation Date Start Date Code Code System Note Provider Name and Address Organization Details Recorded Time 620650 amoxicill in medicatio n rash Not available Not available 02/13/2023 723 [facility] 18:54:22 882624 Medicinal product containin g penicilli n and acting as antibacte rial agent (product) medicatio n rash Not available Not available 02/13/2023 73928 05 SNOMED ELISSA pichardo [place] - [facility] 18:54:31 Medications Name Sig Start Date Stop Date Status Note LastModified by Organization Details LastModified Time Bactrim DS 800 mg-160 mg tablet Take 1 tablet every 12 hours by oral route for 7 days. 023 active Not Available Not Available Not Avai lable pantoprazole active Not Available Not Available Not Available alfuzosin active Not Available Not Yajaira ilable Not Available Vitals Date Recorded Body height Body mass index (BMI) Body weight Respiratory rate Body temperature Oxygen saturation Oxygen saturation in Arterial blood by Pulse oximetry Heart rate Systolic blood pressure Diastolic blood pressure Provider Name and Address Organization Details Last Updated DateTime 185.42 cm 34.3 kg/m2 451845. 02 g 18 /min 97.3 [degF] 96 % 96 % 104 /min 113 mm[Hg] 77 mm[Hg] ELISSA ROJAS PA [address] 18:58:07 Social History Question Answer Notes LastModified by Organizat ion Details LastModified Time Tobacco Smoking Status Never Smoker ELISSA pichardo [place] - [facility] 02/13/2023 18:56:34 What Is Your Level Of Alcohol Consumption? None [email or web address] Information not available 02/13/2023 Do You Use Any Illicit Or Recreational Drugs? No [email or web address] Information not available 02/13/2023 Have You Recently Traveled Abroad? No [email or web address] Information not available 02/13/2023 Do You Or Have You Ever Used Any Other Forms Of Tobacco Or Nicotine? No Information not available 02/13/2023 Sex: Unknown Functional Status None recorded. Mental Status None recorded. Family History Relationship Description Onset Age of this Age Resolved Age Notes LastModified by Organization Details LastModified Time Father Malignant tumor of stomach [email or web address] Not available 2022 18:56:09 Sister Malignant tumor of colon [email or web address] Not available 2022 18:56:18 Medical History No medical history recorded. Immunizations Vaccine Type Date Status Provider Name and Address Organization Details Recorded Time Tdap 02/13/2023 completed BERNA ALLISON MD [address] [place], [address], [place] - [facility] 02/13/2023 19:49:17 Past Encounters Encounter ID Performer Location Encounter Start Date Encounter Closed Date Diagnosis/Indication Diagnosis SNOMED-CT Code Diagnosis ICD10 Code [id number] [address] [place] [address] 02/07/2019 09:41:50 02/07/2019 10:10:13 [id number] [facility] [place]ISON [facility] [address] [facility] [address] [place] [address] 02/13/2023 17:46:59 02/13/2023 19:51:12 Puncture wound of sole of foot 184112245 S91.331A Health Concerns Section Related Observation LastModified by Organization Detai ls LastModified Time None Recorded Concern Status LastModified by Organization Details LastModified Time None Recorded Advance Directives Directive None Recorded Payers Encounter Date Sequence Insurance Name Policy Number Policy De La Fuente Covered Member ID De La Fuente Member ID Guarantor Name 02/07/2019 1 [facility] [id number] Pineda Barnish [id number] Pineda Barnish 02/13/2023 1 [facility] [id number] Pineda Barnish [id number] Pineda Reyes Notes Date Note Type Note Provider Name and Address Organization Details Recorded Time 02/13/2023 text/html 58 yo. male stepped on nail noon today with it penetrating his boot on his rt foot. He is here for evaluation and & a tetanus shot BERNA ALLISON MD [address] [place], [address], [place] - [facility] 02/13/2023 19:52:35
== END 2024-03-25 08:23 | disposition home or self-care (01) ==
LOC: HO.HMGCX 08:22
PROVIDERS: PCP Internal Medicine; Visit Provider Urology
DX: K64.4 Residual hemorrhoidal skin tags (principal); D30.00 Benign neoplasm of unspecified kidney
CPT/HCPCS: 76775; 96127

== ENCOUNTER 2024-03-25 11:05 | Outpatient (AMB) | payer OTHER, SELFPAY ==
[2024-03-25 11:27] VITALS: BP 104/70; PULSE 101; O2SAT 95; BMI 33.0
--- NOTE | 2024-03-25 11:27 | A.OFFPC_ITS ---
Vital Signs 03/25/24 11:27 Height 6 ft 1 in Weight 250 lb BMI 33.0 BP 104/70 Blood Pressure Location Lt brachial Position Sitting Pulse 101 H Pulse Source Pulse Oximeter Pulse Oximetry (%) 95 Oxygen Delivery Method Room Air Intake Visit Reasons: Hemorrhoids Intake Note: Pt is here today for a sick visit. Pt c/o hemorrhoid for a month now. Pt states that he was seen in a walk in and was given medication for it but its not helping. Allergies amoxicillin [AMOXICILLIN] Allergy (Unknown, Verified 03/25/24 11:29) RASH penicillin G Allergy (Unknown, Verified 03/25/24 11:29) Rash finasteride Adverse Reaction (Intermediate, Verified 03/25/24 11:29) LOSS GENITAL SENSATION tamsulosin Adverse Reaction (Intermediate, Verified 03/25/24 11:29) Drowsy Medication List - Last Reconciled 03/25/24 by Michelle Streeter MD alfuzosin ER 10 mg PO BEDTIME 90 days hydrocortisone acetate (Anusol-HC) 25 mg GA BEDTIME pantoprazole 40 mg PO DAILY Tobacco use date assessed: 03/25/24 Dental Screening Dental Screen Date: 07/02/23 HPI Hemorrhoids HPI Details Patient complains of external hemorrhoid getting larger and irritated. He denies bleeding constipation diarrhea. Patient used Anusol without significant change. He is due for repeat colonoscopy next year [facility] Medical History Renal mass Annual physical exam BPH (benign prostatic hyperplasia) Abnormal colonoscopy Surgical History History of removal of cyst Family History Father Stomach cancer Mini stroke Smoker COPD (chronic obstructive pulmonary disease) Mother No problems noted. Maternal Grandmother Lung cancer Social History Household Members Other:: exercise, Housing: House Alcohol intake: current Alcohol intake frequency: holidays/special occasions only Patient Tobacco Use Status: Never used Tobacco e-Cigarette/Vaping Use: Never Used service: No Current occupational status: employed Cognitive needs: No Hearing needs: No Vision needs: Yes Questionnaire PHQ-9 Over the last 2 weeks, how often have you been bothered by any of the following problems? 1. Little interest or pleasure in doing things: not at all 2. Feeling down, depressed, or hopeless: not at all 3. Trouble falling or staying asleep, or sleeping too much: not at all 4. Feeling tired or having little energy: not at all 5. Poor appetite or overeating: not at all 6. Feeling bad about yourself - or that you are a failure or have let yourself or your family down: not at all 7. Trouble concentrating on things, such as reading the newspaper or watching television: not at all 8. Moving or speaking so slowly that other people could have noticed. Or the opposite - being so fidgety or restless that you have been moving around a lot more than usual: not at all 9. Thoughts that you would be better off or of hurting yourself in some way: not at all Total score: 0 Depression Screening Interpretation: Negative Depression Screening Done: Yes 18187 - PHQ-9 Billing: Yes Source: Developed by Drs. Jose Mejia, Dara Cope, Raj Don and colleagues, with an educational kevin from [employer]. Thrive Questionnaire Date Thrive assessed: 02/09/24 I am a: Patient What is your living situation today?: I have a steady place to live Within the past 12 months, did the food you bought not last and you didn't have the money to get more?: Never true Within the past 12 months, did you worry whether your food would run out before you got money to buy more?: Never true Do you have trouble paying for medicines?: No Do you have trouble getting transportation to medical appointments?: No Do you have trouble paying your heating and electricity bill?: No Do you have trouble taking care of your child, family member or friend?: No Do you have trouble with day-to-day activities such as bathing, preparing meals, shopping, managing finances, etc.?: No Are you currently unemployed and looking for a job?: No Are you interested in more education?: No Please select the resources that you would like help with: None Currently or been in a relationship where the following occur: No concerns reported THRIVE Score: 0 AUDIT C Alcohol Use Questionnaire (AUDIT-C) 1. How often do you have a drink containing alcohol?: Never 3. How often do you have six or more drinks on one occasion?: Never Total Score: 0 LESLY-7 AMB Questionnaire LESLY-7 Date LESLY - 7 assessed: 02/09/24 Feeling nervous, anxious, or on edge: 0 = Not at all Not being able to stop or control worryin = Not at all Worrying too much about different things: 0 = Not at all Trouble relaxin = Not at all Being so restless that it is hard to sit still: 0 = Not at all Becoming easily annoyed or irritable: 0 = Not at all Feeling afraid as if something awful might happen: 0 = Not at all Total LESLY-7 score (0-4 normal; 5-9 mild; 10-14 moderate; 15-21 severe): 0 Source: Developed by Drs. Jose Mejia, Dara Cope, Raj Don and colleagues, with an educational kevin from [employer]. Review of Systems Const All systems reviewed & are unremarkable except as noted in HPI and below Card Reports no additional complaints Resp Reports no additional complaints GI Reports no additional complaints Reports no additional complaints Physical exam (Primary Care) Vital Signs: Last Vital Signs Pulse 101 H 03/25/24 11:27 BP 104/70 03/25/24 11:27 Pulse Ox 95 03/25/24 11:27 Oxygen Delivery Method Room Air 03/25/24 11:27 BMI result Body Mass Index 33.0 Tobacco/Smoking Status: Tobacco use Status Tobacco use date assessed 03/25/24 03/25/24 11:31 Patient Tobacco Use Status Never used Tobacco 03/25/24 11:31 e-Cigarette/Vaping Use Never Used 03/25/24 11:31 PHQ-9: PHQ-9 Score PHQ-9: Total score 0 03/25/24 11:31 Depression Screening Interpretation: Negative Thrive Assessment: Date of Thrive Assessment Date Thrive assessed 02/09/24 03/25/24 11:31 Currently or been in a relationship where the following occur: No concerns reported Const General: no acute distress HENMT Head: Yes normal to inspection Eyes General: appearance normal, both eyes and all related structures Resp Effort & Inspection: normal respiratory effort Auscultation: clear to auscultation bilaterally Cardio Rhythm: regular rhythm Heart sounds: S1 normal heart sound present and S2 normal heart sound present GI Inspection: Yes normal to inspection Percussion: Yes normal to percussion Auscultation: normal bowel sounds Rectal Exam - Male: Yes normal sphincter tone and Yes External hemorrhoid(s) present Coding Level of Care Code Est Pt Level 3 (06483) Diagnoses External hemorrhoid K64.4 Additional Codes PHQ-9 - 83405 - PHQ-9 Billing: Yes ([id number]) Assessment & Plan Assessment & Plan (1) External hemorrhoid: Code(s): K64.4 - Residual hemorrhoidal skin tags Category: Medical Plan: Referred to colorectal surgery for evaluation of removal Orders: Referrals Colon & Rectal Referral K64.4 - Residual hemorrhoidal skin tags
== END 2024-03-25 12:13 | disposition home or self-care (01) ==
PROVIDERS: PCP Internal Medicine; Visit Provider Internal Medicine
DX: K64.4 Residual hemorrhoidal skin tags (principal)

== ENCOUNTER 2024-04-09 13:12 | Outpatient (AMB) | payer OTHER, SELFPAY ==
--- OUTSIDE RECORDS SUMMARY | 2024-04-09 13:15 | XMS_ITS | Data Portability ---
Author Organization [facility] [address] Address [address] [place] [address] Assessment No assessment recorded. Plan of Treatment Reminders Order Date Submit Date Provider Last Modified By Organization Details Last Modified Time Details Appointments None recorded. Lab None recorded. Referral None recorded. Procedures None recorded. Surgeries None recorded. Imaging None recorded. Medication Orders Bactrim DS 800 mg-160 mg tablet [id number], [address] [place], [address], 19:35:57 Patient TargetsNo targets recorded. Patient Instructions Encounter Date Encounter Id Patient Instructions Last Modified By Organization Details Last Modified Time 02/13/2023 [id number] You can take ove r the counter tylenol or ibuprofen per package instructions for the pain. See printed instructions. Follow-up with your doctor if no improvement in 1 week. Seek Emergency Medical evaluation for any worsening symptoms. [email or web address] Not available 02/13/2023 19:35:55 Reason for Referral None Reported. Problems Name Problem SNOMED Code Status Onset Date Resolution Date Notes Provider Name and Address Organization Details Recorded Time Acid reflux 611241215 Active 023 [facility] 02/13/2023 18:55:52 Problem Notes None recorded. Medical Equipment None Reported. Allergies Allergen ID Allergen Name Allergen Category Reaction Reaction Severity Criticality Documentation Date Start Date Code Code System Note Provider Name and Address Organization Details Recorded Time 302435 amoxicill in medicatio n rash Not available Not available 02/13/2023 723 [facility] 18:54:22 [id number] Medicinal product containin g penicilli n and acting as antibacte rial agent (product) medicatio n rash Not available Not available 02/13/2023 17933 05 SNOMED ELISSA [facility]ichardo [facility] [...] Last Updated DateTime 185.42 cm 34.3 kg/m2 248242. 02 g 18 /min 97.3 [degF] 96 % 96 % 104 /min 113 mm[Hg] 77 mm[Hg] ELISSA ROJAS PA [facility] 18:58:07 Social History Question Answer Notes LastModified by Organizat ion Details LastModified Time Tobacco Smoking Status Never Smoker ELISSA pichardo [place] - [facility] 02/13/2023 18:56:34 What Is Your Level Of Alcohol Consumption? None [email or web address] Information not available 02/13/2023 Do You Use Any Illicit Or Recreational Drugs? No [email or web address] Information not available 02/13/2023 Have You Recently Traveled Abroad? No [email or web address] Information not available 02/13/2023 Do You Or Have You Ever Used Any Other Forms Of Tobacco Or Nicotine? No [email or web address] Information not available 02/13/2023 Sex: Unknown Functional Status None recorded. Mental Status None recorded. Family History Relationship Description Onset Age of this Age Resolved Age Notes LastModified by Organization Details LastModified Time Father Malignant tumor of stomach [email or web address] Not available 2022 18:56:09 Sister Malignant tumor of colon Not available 2022 18:56:18 Medical History No medical history recorded. Immunizations Vaccine Type Date Status Note Provider Nam e and Address Organization Details Recorded Time Tdap 02/13/2023 completed BERNA ALLISON MD [address] [place], [address], [place] - [facility] 02/13/2023 19:49:17 Past Encounters Encounter ID Performer Location Encounter Start Date Encounter Closed Date Diagnosis/Indication Diagnosis SNOMED-CT Code Diagnosis ICD10 Code [id number] [address] [address] 02/07/2019 09:41:50 02/07/2019 10:10:13 [id number] [facility] [address] [address] [place] [address] 02/13/2023 17:46:59 02/13/2023 19:51:12 Puncture wound of sole of foot [id number] S91.331A Health Concerns Section Related Observation LastModified by Organization Detai ls LastModified Time None Recorded Concern Status LastModified by Organization Details LastModified Time None Recorded Advance Directives Directive None Recorded Payers Encounter Date Sequence Insurance Name Policy Number Policy De La Fuente Covered Member ID De La Fuente Member ID Guarantor Name 02/07/2019 1 [facility] [id number] Pineda Barnish [id number] Pineda Barnish 02/13/2023 1 [facility] [id number] Pineda Barnish [id number] Pineda Reyes Notes Date Note Type Note Provider Name and Address Organization Details Recorded Time 02/13/2023 text/html 58 yo. male stepped on nail noon today with it penetrating his boot on his rt foot. He is here for evaluation and & a tetanus shot BERNA ALLISON MD [address] [place], [address], [place] - [facility] 02/13/2023 19:52:35
--- NOTE | 2024-04-09 13:19 | A.OFFVIS_ITS ---
Intake Visit Reasons: 1y/US Intake Note: Patient is Present for 1Y Follow Up/US Urology Med: Alfuzosin Antibiotic Allergy: Amoxicillin, Penicillin Blood Thinner: None Director Of Recreation Therapy Required: No Allergies amoxicillin [AMOXICILLIN] Allergy (Unknown, Verified 04/09/24 13:19) RASH penicillin G Allergy (Unknown, Verified 04/09/24 13:19) Rash finasteride Adverse Reaction (Intermediate, Verified 04/09/24 13:19) LOSS GENITAL SENSATION tamsulosin Adverse Reaction (Intermediate, Verified 04/09/24 13:19) Drowsy HPI Comments Details: Pineda is a pleasant male. He is a patient of Dr. Streeter. He is seen for the following urologic conditions - lower urinary tract symptoms - renal lesion - oncoytoma Yearly follow-up Remains on alfuzosin for hesitancy Continues with moderate urinary symptoms but is not bothered Discussed ultrasound result Twelve month follow-up refill prescriptions Lower urinary tract symptoms Current therapy alfuzosin Prior therapy with alpha-shoaib but had been lightheaded Trial of finasteride with PCP however this led to declined libido Symptoms include nocturia x3, hesitancy, incomplete emptying PSA 11/09 0.63 Renal mass Right renal mass detected during incidental imaging for micro hematuria Cytology 12/10 negative for high-grade Imaging - 12/10 CT urogram 2.6 cm right medial anterior lower question lesion. Enhancement not consistent with RCC - 01/10 renal biopsy oncocytoma - 02/[address] slightly increased oncocytoma right side - 04/13 renal ultrasound stable 4 cm oncocytoma Surveillance imaging [facility] Medical History Renal mass Annual physical exam BPH (benign prostatic hyperplasia) Abnormal colonoscopy Surgical History History of removal of cyst Family History Father Stomach cancer Mini stroke Smoker COPD (chronic obstructive pulmonary disease) Mother No problems noted. Maternal Grandmother Lung cancer Social History Household Members Other:: exercise, Housing: House Alcohol intake: current Alcohol intake frequency: holidays/special occasions only Patient Tobacco Use Status: Never used Tobacco e-Cigarette/Vaping Use: Never Used service: No Current occupational status: employed Cognitive needs: No Hearing needs: No Vision needs: Yes Review of Systems Const Denies chills and Denies fever(s) Card Reports no additional complaints and Denies syncope Resp Denies cough GI Denies abdominal pain and Denies heartburn Reports as per HPI and Denies change in libido Neuro Denies syncope Psych Denies change in libido Endo Denies change in libido Physical Exam Const General: cooperative, healthy appearing, comfortable and no acute distress Orientation/consciousness: patient oriented x3 HEENT Face and sinus: Yes normal facial exam Mouth: moist mucous membranes Neck Neck: Yes normal visual inspection, Yes full ROM and Yes trachea midline Chest Chest palpation & inspection: normal inspection of the chest Resp Effort & Inspection: normal respiratory effort, able to speak in complete sentences and no respiratory distress GI Inspection: Yes normal to inspection Back/Spine/Pelvis Cervical Spine: normal cervical lordosis Thoracic/Lumbar Spine: thoracic and lumbar spine normal to inspection Skin General skin exam: no rashes or lesions noted Neuro General: patient oriented x3, gait normal, tone normal and moves all extremities Extrem General: Yes normal to inspection and Yes capillary refill normal Results AMB Urinalysis, Automated UA Leukoctes 0 Kate/uL Last Edit by DALIA Kidd on 04/09/24 13:28 UA Nitrite Negative Last Edit by DALIA Kidd on 04/09/24 13:28 UA Urobilinogen 0.2 mg/dL Last Edit by DALIA Kidd on 04/09/24 13:2 8 UA Protein 15 mg/dL Last Edit by DALIA Kidd on 04/09/24 13:28 UA pH 6.0 Last Edit by DALIA Kidd on 04/09/24 13:28 UA Blood 10 Lloyd/uL Last Edit by DALIA Kidd on 04/09/24 13:28 UA Specific Wilkinson 1.020 Last Edit by DALIA Kidd on 04/09/24 13: 28 UA Ketone Negative Last Edit by DALIA Kidd on 04/09/24 13:28 UA Bilirubin 0 mg/dL Last Edit by DALIA Kidd on 04/09/24 13:28 UA Glucose 0 mg/dL Last Edit by DALIA Kidd on 04/09/24 13:28 Results Reviewed Results Reviewed: Laboratory Last Values Urine pH (Auto) 6.0 04/09/24 13:28 Specific Wilkinson (Auto) 1.020 04/09/24 13:28 Urine Protein (Auto) 15 mg/dL 04/09/24 13:28 Glucose (UA)(Auto) 0 mg/dL 04/09/24 13:28 Urine Ketones (Auto) Negative 04/09/24 13:28 Urine Blood (Auto) 10 Lloyd/uL 04/09/24 13:28 Urine Nitrite (Auto) Negative 04/09/24 13:28 Urine Bilirubin (Auto) 0 mg/dL 04/09/24 13:28 Urine Urobilinogen (Auto) 0.2 mg/dL 04/09/24 13:28 Leukocyte Esterase (Auto) 0 Kate/uL 04/09/24 13:28 Assessment & Plan Assessment & Plan (1) BPH (benign prostatic hyperplasia): Comment: Alfuzosin Code(s): N40.0 - Benign prostatic hyperplasia without lower urinary tract symptoms Category: Medical (2) 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 No major barriers to patient understanding were identified. An opportunity to ask questions regarding the treatment plan was provided. All questions were answered. The patient expressed understanding and agreement with the above treatment plan. The patient is aware they should contact our office by phone for worsening of their current condition or the appearance of new urologic symptoms. Compliance is encouraged with any medications and followup testing that is ordered. It is a privilege to participate in the urologic care of your patient. If you have any questions or concerns regarding treatment for the above conditions, or other urologic issues, please do not hesitate to contact me. The office telephone contact is [phone]. This note is constructed using voice recognition software. While every effort has been made to ensure accuracy veterans rehabilitation counselor errors may have been included. 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
== END 2024-04-09 13:48 | disposition home or self-care (01) ==
PROVIDERS: PCP Internal Medicine; Visit Provider Urology
DX: N40.0 Benign prostatic hyperplasia without lower urinary tract symptoms (principal); D30.00 Benign neoplasm of unspecified kidney; Z13.9 Encounter for screening, unspecified
CPT/HCPCS: 99214

== ENCOUNTER → 2024-04-09 13:12 | Outpatient (BNVA) | payer OTHER, SELFPAY | PROVIDERS: PCP Internal Medicine; Visit Provider Urology | DX: N40.0 Benign prostatic hyperplasia without lower urinary tract symptoms (principal); D30.01 Benign neoplasm of right kidney | CPT/HCPCS: 81003 ==

== ENCOUNTER 2024-06-03 10:49 | Outpatient (AMB) | payer OTHER, SELFPAY ==
[2024-06-03 11:08] VITALS: BP 126/78; PULSE 101; RESP 20; TEMP 37.6; O2SAT 97; BMI 33.2
--- NOTE | 2024-06-03 11:08 | A.OFFPC_ITS ---
Vital Signs 06/03/24 11:08 Height 6 ft 1 in Weight 252 lb BMI 33.2 BP 126/78 Blood Pressure Location Lt brachial Position Sitting Respiration 20 Pulse 101 H Pulse Source Pulse Oximeter Temp 99.6 F Temp Source Oral Pulse Oximetry (%) 97 Oxygen Delivery Method Room Air Intake Visit Reasons: bad cough, possible bronchitis Intake Note: Pt is here today for a sick visit. Pt c/o cough, congestion pain on the back of his head and on the back. Allergies amoxicillin [AMOXICILLIN] Allergy (Unknown, Verified 06/03/24 11:12) RASH penicillin G Allergy (Unknown, Verified 06/03/24 11:12) Rash finasteride Adverse Reaction (Intermediate, Verified 06/03/24 11:12) LOSS GENITAL SENSATION tamsulosin Adverse Reaction (Intermediate, Verified 06/03/24 11:12) Drowsy Medication List - Last Reconciled 06/03/24 by Michelle Streeter MD alfuzosin ER 10 mg PO BEDTIME 90 days hydrocortisone acetate (Anusol-HC) 25 mg PA BEDTIME nitrofurantoin monohyd/m-cryst 100 mg PO pantoprazole 40 mg PO DAILY Tobacco use date assessed: 06/03/24 Dental Screening Dental Screen Date: 06/03/24 Did you have a dental visit in the last 12 months?: Yes Did you have a dental problem in the last 6 months where you did not have access to dental care?: No Was dental information given to patient?: Patient has dentist HPI bad cough, possible bronchitis HPI Details Pt c/o dry cough, nasal and sinus congestion for 4 days. Patient denies fever chills pleurisy sputum production. He has been taking okat-yst-bhojsir DayQuil with good relief. Patient developed increased urinary frequency and dysuria 5 days ago and was evaluated in walk in. He was diagnosed with UTI and started on Macrobid. Patient reports symptoms improved and denies dysuria hematuria abdominal pain or back pain. Patient is established with Urology has been taking alfuzosin for BPH symptoms but still reports frequent urination mainly during a day. This is his 2nd UTI within the last year. He used to take finasteride and is willing to restart it. [facility] Medical History Renal mass Annual physical exam BPH (benign prostatic hyperplasia) Abnormal colonoscopy Surgical History History of removal of cyst Family History Father Stomach cancer Mini stroke Smoker COPD (chronic obstructive pulmonary disease) Mother No problems noted. Maternal Grandmother Lung cancer Social History Household Members Other:: exercise, Housing: House Alcohol intake: current Alcohol intake frequency: holidays/special occasions only Patient Tobacco Use Status: Never used Tobacco e-Cigarette/Vaping Use: Never Used service: No Current occupational status: employed Cognitive needs: No Hearing needs: No Vision needs: Yes Questionnaire PHQ-9 Over the last 2 weeks, how often have you been bothered by any of the following problems? 1. Little interest or pleasure in doing things: not at all 2. Feeling down, depressed, or hopeless: not at all 3. Trouble falling or staying asleep, or sleeping too much: not at all 4. Feeling tired or having little energy: not at all 5. Poor appetite or overeating: not at all 6. Feeling bad about yourself - or that you are a failure or have let yourself or your family down: not at all 7. Trouble concentrating on things, such as reading the newspaper or watching television: not at all 8. Moving or speaking so slowly that other people could have noticed. Or the opposite - being so fidgety or restless that you have been moving around a lot more than usual: not at all 9. Thoughts that you would be better off or of hurting yourself in some way: not at all Total score: 0 Depression Screening Interpretation: Negative Depression Screening Done: Yes 35518 - PHQ-9 Billing: Yes Source: Developed by Drs. Jose Mejia, Dara Cope, Raj Don and colleagues, with an educational kevin from [employer]. Thrive Questionnaire Date Thrive assessed: 06/03/24 I am a: Patient What is your living situation today?: I have a steady place to live Within the past 12 months, did the food you bought not last and you didn't have the money to get more?: Never true Within the past 12 months, did you worry whether your food would run out before you got money to buy more?: Never true Do you have trouble paying for medicines?: No Do you have trouble getting transportation to medical appointments?: No Do you have trouble paying your heating and electricity bill?: No Do you have trouble taking care of your child, family member or friend?: No Do you have trouble with day-to-day activities such as bathing, preparing meals, shopping, managing finances, etc.?: No Are you currently unemployed and looking for a job?: No Are you interested in more education?: No Please select the resources that you would like help with: None Currently or been in a relationship where the following occur: No concerns reported THRIVE Score: 0 LESLY-7 AMB Questionnaire LESLY-7 Date LESLY - 7 assessed: 06/03/24 Feeling nervous, anxious, or on edge: 0 = Not at all Not being able to stop or control worryin = Not at all Worrying too much about different things: 0 = Not at all Trouble relaxin = Not at all Being so restless that it is hard to sit still: 0 = Not at all Becoming easily annoyed or irritable: 0 = Not at all Feeling afraid as if something awful might happen: 0 = Not at all Total LESLY-7 score (0-4 normal; 5-9 mild; 10-14 moderate; 15-21 severe): 0 Source: Developed by Drs. Jose Mejia, Dara Cope, Raj Don and colleagues, with an educational kevin from [employer]. LESLY-7 Assessment Billing LESLY-7 Assessment Tool: LESLY-7 Assessment 73488 Review of Systems Const All systems reviewed & are unremarkable except as noted in HPI and below Eyes Reports no additional complaints ENT Reports no additional complaints Card Reports no additional complaints Resp Reports no additional complaints GI Reports no additional complaints Reports no additional complaints Physical exam (Primary Care) Vital Signs: Last Vital Signs Temp 99.6 F 06/03/24 11:08 Pulse 101 H 06/03/24 11:08 Resp 20 06/03/24 11:08 BP 126/78 06/03/24 11:08 Pulse Ox 97 06/03/24 11:08 Oxygen Delivery Method Room Air 06/03/24 11:08 BMI result Body Mass Index 33.2 Tobacco/Smoking Status: Tobacco use Status Tobacco use date assessed 06/03/24 06/03/24 11:16 Patient Tobacco Use Status Never used Tobacco 06/03/24 11:16 e-Cigarette/Vaping Use Never Used 06/03/24 11:10 PHQ-9: PHQ-9 Score PHQ-9: Total score 0 06/03/24 11:25 Depression Screening Interpretation: Negative Thrive Assessment: Date of Thrive Assessment Date Thrive assessed 06/03/24 06/03/24 11:16 Currently or been in a relationship where the following occur: No concerns reported Const General: no acute distress HENMT Head: Yes normal to inspection Ears: TM's normal bilaterally General nose exam: Abnormal mucous membranes and turbinates present erythematous Face and sinus: No sinus tenderness Throat: Yes posterior oropharynx abnormal and Yes postnasal drainage Eyes General: appearance normal, both eyes and all related structures Neck Neck: Yes no lymphadenopathy and Yes supple Resp Effort & Inspection: normal respiratory effort Auscultation: clear to auscultation bilaterally Cardio Rhythm: regular rhythm Heart sounds: S1 normal heart sound present and S2 normal heart sound present GI Inspection: Yes normal to inspection Palpation (GI): Soft to palpation Percussion: Yes normal to percussion Auscultation: normal bowel sounds General: Yes no CVA tenderness Back/Spine/Pelvis Back: no CVA tenderness Coding Level of Care Code Est Pt Level 3 (50830) Diagnoses UTI (urinary tract infection) N39.0 URI (upper respiratory infection) J06.9 Additional Codes LESLY-7 Assessment Billing - LESYL-7 Assessment Tool: LESLY-7 Assessment 21174 ([id number]) PHQ-9 - 13138 - PHQ-9 Billing: Yes ([id number]) Assessment & Plan Assessment & Plan (1) UTI (urinary tract infection): Code(s): N39.0 - Urinary tract infection, site not specified Category: Medical Plan: For recurrent UTIs obtain bladder scan to evaluate for postvoid residual. P atient will restart finasteride and will continue alfuzosin. He will repeat urine culture and urinalysis in 2 weeks. He will follow-up with urologist (2) URI (upper respiratory infection): Code(s): J06.9 - Acute upper respiratory infection, unspecified Category: Medical Plan: Supportive care discussed with the patient Orders: Orders US bladder Today N39.0 - Urinary tract infection, site not specified Urine Culture 2 Weeks N39.0 - Urinary tract infection, site not specified UA w Microscopic 2 Weeks N39.0 - Urinary tract infection, site not specified Medications: New finasteride 5 mg PO DAILY 90 tabs 1RF
--- OUTSIDE RECORDS SUMMARY | 2024-06-03 11:29 | XMS_ITS ---
Author Organization [facility] Address [address] [place] [address] Care Team Providers Care Stencil Cutter Name Role Phone Michelle Streeter MD Primary Care Provider UnavailThompson Royal Jr Unavailable ALLERGIES Allergen (clinical drug ingredient) Drug/Non Drug Allergy documented on EMR Reaction Allergy Type Onset Date Status amoxicillin Amoxicillin Unknown Drug Allergy Act deanna REASON FOR VISIT Patient presents today for a colon recall MEDICATIONS Medication SIG (Take, Route, Frequency, Duration) Notes Start Date End Date Status Alfuzosin HCl ER 10 MG Oral for 30 Active Multivitamin - 1 tablet Orally Once a day for 30 day(s) Active MiraLax (colon prep) 17 GM/SCOOP mixed with Gatorade or Crystal Light Orally begin at 5:00 p.m. the day before the procedure for 1 day 05/26/2024 Active Pantoprazole Sodium 40 MG take 1 tablet by mouth every day for 90 days Oral for 90 days Active IMMUNIZATIONS Vaccine Route Administration Date Status Comme nts Influenza Unknown 05/26/2024 Refused SOCIAL HISTORY Sex Assigned At : Social History Observation Description Sex Assigned At Unknown Alcohol Screen Question Answer Notes Did you have a drink containing alcohol in the p ast year? No Points 0 Interpretation Negative VITAL SIGNS BMI 34.10 kg/m2 05/26/2024 Blood pressure systolic 000 mm Hg 05/26/19 25 Blood pressure diastolic 00 mm Hg 025 Height 73 in 05/26/2024 Temperature 96.9 degrees Fahrenheit 05/26/19 25 Weight 258 lb 8 oz lbs 05/26/2024 Encounters Encounter Location Date Provider [facility] [address] [place] [address] 05/26/2024 Thompson Fernandez Jr Gastroesophageal reflux disease, esophagitis presence not specified K21.9 and Colon cancer screening Z12.11 ASSESSMENTS Encounter Date Diagnosis Assessment Notes Treatment Notes Treatment Clinical Notes 05/26/2024 Gastroesophageal reflux disease, esophagitis presence not specified (ICD-10 - K21.9) 05/26/2024 Colon cancer screeni ng (ICD-10 - Z12.11) Colonoscopy material was printed PLAN OF TREATMENT Medication Medication Name Sig Start Date Stop Date Notes MiraLax (colon prep) 17 GM/SCOOP mixed with Gatorade or Crystal Light Orally begin at 5:00 p.m. the day before the procedure for 1 day 05/26/2024 Treatment Notes Assessment Notes Colon cancer screening Colonoscopy mater ial was printed Future Test Test Name Order Date COLONOSCOPY 05/26/2024 Next Appt Details Follow Up: 1 Year, Reason: Provider Name:Thompson gonzalez Jr, 07/06/2024 10:40:00 AM, [address] [place] [address], [phone], Provider Name:Thompson gonzalez Jr, 07/29/2024 03:15:00 PM, [address] [place] [address], [address], [place], [address], Progress Notes * Examination Category Sub-Category Detail Notes General Examination GENERAL APPEARANCE: in no ac [place] distress HEAD: normocephalic EYES: sclera non-icteric NECK/THYROID: no lymphadenopathy HEART: S1, S2 normal, no mu rmurs CHEST: normal shape and exp ansion LUNGS: clear to auscultatio n bilaterally ABDOMEN: soft, nontender, non distended, bowel sounds present, no organomegaly SKIN: anicteric EXTREMITIES: no clubbing, cyanosi s, or edema PSYCH: cognitive function i ntact ORAL CAVITY: mucosa moist
--- OUTSIDE RECORDS SUMMARY | 2024-06-03 11:30 | XMS_ITS | Clinical Summary ---
Author Organization [facility] Address [address] [place] [address] Care Team Providers Care Wind Turbine Mechanical Engineer Name Role Phone Conor Vargas MD Primary Care Provider Allergies Active Allergy Reactions Criticality Noted Date Comments Amoxicillin 07/21/2020 Medications Mupirocin (BACTROBAN) 2 % ointment APPLY IN NOSE TWICE A DAY 1 2 07/21/2020 Active Pantoprazole Sodium (PROTONIX) 40 MG EC tablet TAKE 1 TABLET BY MOUTH EVERY DAY 90 0 02/21/2022 Active Alfuzosin HCl (UROXATRAL) 10 MG 24 hr tablet 90 0 09/17/2022 Active Active Problems Problem Noted Date Diagnosed Date Nasal septal deviation 07/18/2020 Nasal vestibulitis 07/17/2020 Social History Tobacco Use Types Packs/Day Years Used Date Smoking Tobacco: Never Assessed Sex and Gender Information Value Date Recorded Sex Assigned at Not on file Legal Sex Male 10:21 PM EDT Gender Identity Not on file Sexual Orientation Not on file Plan of Treatment Health Maintenance Due Date Last Done Comments Hepatitis C Screening 1965 DTaP/Tdap/Td (1 - Tdap) 01/18/1982 Colon Cancer Screening 01/18/2009 Pneumococcal 50+ years (1 of 1 - PCV) 01/18/2014 Zoster (Shingrix) (1 of 2) 01/18/2014 COVID-19 Vaccine ( - 2023-2 5 season) 2023 Influenza (#1) 2023 RSV (1 - 1-dose 75+ series) 01/18/2039 HPV Vaccine Aged Out No longer eligi ble based on patient's age to complete this topic Hep A Aged Out No longer eligi ble based on patient's age to complete this topic Hep B Aged Out No longer eligi ble based on patient's age to complete this topic Hib Aged Out No longer eligi ble based on patient's age to complete this topic Meningococcal ACWY Aged Out No longer eligible based on patient's age to complete this topic Zoster (Zostavax) Discontinued Care Teams Wind Turbine Mechanical Engineer Relationship Specialty Start Date End Date Conor Vargas MD [address] [place] [address] PCP - General 11/25/22
--- OUTSIDE RECORDS SUMMARY | 2024-06-03 11:30 | XMS_ITS ---
Author Organization [facility] Address [address] [place] [address] Care Team Providers Care Loader Technician Name Role Phone Michelle Streeter MD Primary Care Provider Thompson Garcia Jr [phone] REASON FOR VISIT voicemail MEDICATIONS Medication SIG (Take, Route, Frequency, Duration) Notes Start Date End Date Status Pantoprazole Sodium 40 MG take 1 tablet by mouth every day for 90 days Oral for 90 days Active Encounters Encounter Location Date Provider Diagnosis [facility] [address] [place] [address] 04/22/2023 Thompson Fernandez Jr Gastroesophageal reflux disease, esophagitis presence not specified K21.9 ASSESSMENTS Encounter Date Diagnosis Assessment Notes Treatment Notes Treatment Clinical Notes 04/22/2023 Gastroesophageal ref lux disease, esophagitis presence not specified (ICD-10 - K21.9) PLAN OF TREATMENT Medication Medication Name Sig Start Date Stop Date Notes Pantoprazole Sodium 40 MG take 1 tablet by mouth every day for 90 days Oral for 90 days Next Appt Details Provider Name:Thompson gonzalez Jr, 07/06/2024 10:40:00 AM, [address] [place] [address] , [place], [place], [phone], Provider Name:Thompson gonzalez Jr, 07/29/2024 03:15:00 PM, [address] [place] [address], [address], [place], [address],
--- OUTSIDE RECORDS SUMMARY | 2024-06-03 11:30 | XMS_ITS | Patient Health Record ---
Author Organization [facility] Address [address] [place] [address] Care Team Providers Care Outreach Representative Name Role Phone Michelle Streeter MD Primary Care Provider Thompson Garcia Jr Unavailable ALLERGIES Allergen (clinical drug ingredient) Drug/Non Drug Allergy documented on EMR Reaction Allergy Type Onset Date Status amoxicillin Amoxicillin Unknown Drug Allergy Act deanna REASON FOR REFERRAL No Information MEDICATIONS Medication SIG (Take, Route, Frequency, Duration) [...] Administration Date Status Comme nts Influenza Unknown 12/20/2017 Administered Influenza Unknown 02/21/2022 Refused Influenza Unknown 05/26/2024 Refused SOCIAL HISTORY Sex Assigned At : Social History Observation Description Sex Assigned At Unknown Alcohol Screen Question Answer Notes Did you have a drink containing alcohol in the p ast year? No Points 0 Interpretation Negative PROBLEMS Problem Type ICD Code Onset Dates Problem Status W/U Status Risk SNOMED Code Notes Problem Colon cancer screening (Z12.11) Active confirmed 194205472 Problem Gastroesophageal reflux disease, esophagitis presence not specified (K21.9) Active confirmed [id number] VITAL SIGNS Temperature 96.9 degrees Fahrenheit 05/26/2024 Blood pressure diastolic 00 mm Hg 05/26/2024 Height 73 in 05/26/2024 Blood pressure systolic 000 mm Hg 05/26/2024 Weight 258 lb 8 oz lbs 05/26/2024 BMI 34.10 kg/m2 05/26/2024 Encounters Encounter Location Date Provider Diagnosis [facility] [address] [place] [address] 05/26/2024 Thompson Fernandez Jr Gastroesophageal reflux disease, esophagitis presence not specified K21.9 and Colon cancer screening Z12.11 ASSESSMENTS Encounter Date Diagnosis Assessment Notes Treatment Notes Treatment Clinical Notes 05/26/2024 Colon cancer screeni ng (ICD-10 - Z12.11) Colonoscopy material was printed 05/26/2024 Gastroesophageal reflux disease, esophagitis presence not specified (ICD-10 - K21.9) PLAN OF TREATMENT Future Test Test Name Order Date UPPER GI ENDOSCOPY 09/30/2013 COLONOSCOPY 09/30/2013 UPPER GI ENDOSCOPY 11/06/2017 COLONOSCOPY 05/26/2024 Next Appt Details Provider Name:Thompson gonzalez Jr, 07/06/2024 10:40:00 AM, [address] [place] [address] , [place], [place], [phone], Provider Name:Thompson gonzalez Jr, 07/29/2024 03:15:00 PM, [address] [facility], [address] [facility], [place], [address], Insurance Providers Payer Name Payer Address Payer Phone Subscriber Number Group Number Insured Name Patient Relationship to Insured Coverage Start Date Coverage End Date [facility] [address] [place] [phone] [id number] MAYO JOSE Self - patient is the insured MEDICAL (GENERAL) HISTORY Medical History History ICD Code Gastroesophageal reflux dise ase, EGD 12/19/17, no H. pylori or Juarez's esophagus. colon polyps, colonoscopy 07/08, tubular adenoma, five-year followup Right kidney oncocytoma BPH Hemorrhoids Surgical History Surgery Date(Month/Year) lumpectomy on chest
--- OUTSIDE RECORDS SUMMARY | 2024-06-03 11:30 | XMS_ITS | Data Portability ---
Author Organization [facility] [address] Address [address] [place] [address] Assessment No assessment recorded. Plan of Treatment Reminders Order Date Submit Date Provider Last Modified By Organization Details Last Modified Time Details Appointments None recorded. Lab None recorded. Referral None recorded. Procedures None recorded. Surgeries None recorded. Imaging None recorded. Medication Orders Bactrim DS 800 mg-160 mg tablet [facility] #[id number], [address] [place], [address], 19:35:57 Patient TargetsNo targets recorded. Patient Instructions Encounter Date Encounter Id Patient Instructions Last Modified By Organization Details Last Modified Time 02/13/2023 [id number] You can take ove r the counter tylenol or ibuprofen per package instructions for the pain. See printed instructions. Follow-up with your doctor if no improvement in 1 week. Seek Emergency Medical evaluation for any worsening symptoms. [email or web address] Not available 02/13/2023 19:35:55 Reason for Referral None Reported. Problems Name Problem SNOMED Code Status Onset Date Resolution Date Notes Provider Name and Address Organization Details Recorded Time Acid reflux 060210117 Active 023 [facility] 02/13/2023 18:55:52 Problem Notes None recorded. Medical Equipment None Reported. Allergies Allergen ID Allergen Name Allergen Category Reaction Reaction Severity Criticality Documentation Date Start Date Code Code System Note Provider Name and Address Organization Details Recorded Time 154635 amoxicill in medicatio n rash Not available Not available 02/13/2023 723 Rx[facility] 18:54:22 386470 Product containin g penicilli n and antibioti c (product) medicatio n rash Not available Not available 02/13/2023 51324 05 SNOMED ELISSA MOOREAYDE marino PA - [facility] 18:54:31 Medications Name [...] Yajaira ilable Not Available Vitals Date Recorded Pain severity - 0-10 verbal numeric rating [Score] - Reported Body height Body mass index (BMI) Body weight Respiratory rate Body temperature Oxygen saturation Oxygen saturation in Arterial blood by Pulse oximetry Heart rate Systolic blood pressure Diastolic blood pressure Provider Name and Address Organization Details Last Updated DateTime 3 185.42 cm 34.3 kg/m2 376534. 02 g 18 /min 97.3 [degF] 96 % 96 % 104 /min 113 mm[Hg] 77 mm[Hg] ELISSA MOOREAYDE PA - [facility] 18:58:07 Social History Question Answer Notes LastModified by Organizat ion Details LastModified Time Tobacco Smoking Status Never Smoker ELISSA MOOREAYDE marino PA - [facility] 02/13/2023 18:56:34 What Is Your Level Of Alcohol Consumption? None [email or web address] Information not available 02/13/2023 Do You Use Any Illicit Or Recreational Drugs? No [email or web address] Information not available 02/13/2023 Have You Recently Traveled Abroad? No [email or web address] Information not available 02/13/2023 Do You Or Have You Ever Used Any Other Forms Of Tobacco Or Nicotine? No [email or web address] Information not available 02/13/2023 Sex: Unknown Functional Status None recorded. Mental Status None recorded. Family History Relationship Description Onset Age of this Age Resolved Age Notes LastModified by Organization Details LastModified Time Father Malignant tumor of stomach [email or web address] Not available 2022 18:56:09 Sister Malignant tumor of colon [email or web address] Not available 2022 18:56:18 Medical History No medical history recorded. Immunizations Vaccine Type Date Status Note Provider Nam e and Address Organization Details Recorded Time Tdap 02/13/2023 completed BERNA ALLISON MD [address] [place], [address], [place] - [facility] 02/13/2023 19:49:17 Past Encounters Encounter ID Performer Location Encounter Start Date Encounter Closed Date Diagnosis/Indication Diagnosis SNOMED-CT Code Diagnosis ICD10 Code Diagnosis Note [id number] [address] [place] [address] 02/07/2019 09:41:50 02/07/2019 10:10:13 [id number] [facility] [facility] [address] [address] [place] [address] 02/13/2023 17:46:59 02/13/2023 19:51:12 Puncture wound of sole of foot [id number] S91.331A Warm soaks for 20 minutes 2 times a day for 3 days. Health Concerns Section Related Observation LastModified by Organization Detai ls LastModified Time None Recorded Concern Status LastModified by Organization Details LastModified Time None Recorded Advance Directives Directive None Recorded Payers Encounter Date Sequence Insurance Name Policy Number Policy De La Fuente Covered Member ID De La Fuente Member ID Guarantor Name 02/07/2019 1 [facility] [id number] Pineda Reyes [id number] Pineda Reyes 02/13/[address] [place] [address] [id number] Pineda Barnish [id number] Pineda Reyes Notes Date Note Type Note Provider Name and Address Organization Details Recorded Time 02/13/2023 text/html 58 yo. male stepped on nail noon today with it penetrating his boot on his rt foot. He is here for evaluation and & a tetanus shot BERNA ALLISON MD [address] [place], [address], [place] - [facility] 02/13/2023 19:52:35
== END 2024-06-03 12:29 | disposition home or self-care (01) ==
PROVIDERS: PCP Internal Medicine; Visit Provider Internal Medicine
DX: N39.0 Urinary tract infection, site not specified (principal); J06.9 Acute upper respiratory infection, unspecified

== ENCOUNTER → 2024-06-03 10:49 | Outpatient (BNVA) | payer OTHER, SELFPAY | PROVIDERS: PCP Internal Medicine; Visit Provider Internal Medicine | DX: J06.9 Acute upper respiratory infection, unspecified (principal); N39.0 Urinary tract infection, site not specified | CPT/HCPCS: 96127 ==

== ENCOUNTER 2024-06-09 12:58 | Outpatient (AMB) | payer OTHER, SELFPAY ==
--- OUTSIDE RECORDS SUMMARY | 2024-06-09 13:10 | XMS_ITS ---
Author Organization [facility] Address [address] [place] [address] Care Team Providers Care Sports Teacher Name Role Phone Michelle Streeter MD Primary Care Provider UnavailThompson Royal Jr Unavailable [phone] ALLERGIES Allergen (clinical drug ingredient) Drug/Non Drug [...] 05/26/2024 Encounters Encounter Location Date Provider [facility] [address] [place] [address] 05/26/2024 Thompson Fernandez Jr Gastroesophageal reflux disease, [...] Provider Name:Thompson gonzalez Jr, 07/06/2024 10:40:00 AM, [address] [place] [address], [phone], Provider Name:Thompson gonzalez Jr, 07/29/2024 03:15:00 PM, [address] [place] [address], [address], [place], [address], Progress Notes * Examination Category Sub-Category Detail Notes General Examination GENERAL APPEARANCE: in no ac kaw distress HEAD: normocephalic EYES: sclera non-icteric NECK/THYROID: no lymphadenopathy HEART: S1, S2 normal, no mu rmurs CHEST: normal shape and exp ansion LUNGS: clear to auscultatio n bilaterally ABDOMEN: soft, nontender, non distended, bowel sounds present, no organomegaly SKIN: anicteric EXTREMITIES: no clubbing, cyanosi s, or edema PSYCH: cognitive function i ntact ORAL CAVITY: mucosa moist
--- OUTSIDE RECORDS SUMMARY | 2024-06-09 13:10 | XMS_ITS ---
Author Organization [facility] Address [address] [place] [address] Care Team Providers Care Digital Hardware Design Engineer Name Role Phone Michelle Streeter MD Primary Care Provider Thompson Garcia Jr REASON FOR VISIT voicemail MEDICATIONS Medication SIG (Take, Route, Frequency, Duration) Notes Start Date End Date Status Pantoprazole Sodium 40 MG take 1 tablet by mouth every day for 90 days Oral for 90 days Active Encounters Encounter Location Date Provider Diagnosis [facility] [address] [place] [address] 04/22/2023 Thompson Fernandez Jr Gastroesophageal reflux disease, [...] Provider Name:Thompson gonzalez Jr, 07/06/2024 10:40:00 AM, [address] [place] [address] , [place], [place], [phone], Provider Name:Thompson gonzalez Jr, 07/29/2024 03:15:00 PM, [address] [place] [address], [address], [place], [address],
--- OUTSIDE RECORDS SUMMARY | 2024-06-09 13:11 | XMS_ITS | Patient Health Record ---
Author Organization [facility] Address [address] [place] [address] Care Team Providers Care Supervisor Production Managing Name Role Phone Michelle Streeter MD Primary [...] Problem Colon cancer screening (Z12.11) Active confirmed 670553629 Problem Gastroesophageal reflux disease, esophagitis presence not specified (K21.9) Active confirmed 879716568 VITAL SIGNS Temperature 96.9 degrees Fahrenheit 05/26/2024 Blood pressure diastolic 00 mm Hg 05/26/2024 Height 73 in 05/26/2024 Blood pressure systolic 000 mm Hg 05/26/2024 Weight 258 lb 8 oz lbs 05/26/2024 BMI 34.10 kg/m2 05/26/2024 Encounters Encounter Location Date Provider Diagnosis [facility] [address] [place] [address] 05/26/2024 Thompson Fernandez Jr Gastroesophageal reflux disease, [...] Provider Name:Thompson gonzalez Jr, 07/06/2024 10:40:00 AM, [address] [place] [address] , [place], [place], [phone], Provider Name:Thompson gonzalez Jr, 07/29/2024 03:15:00 PM, [address] [facility], [address] [facility], [place], [address], Insurance Providers Payer Name Payer Address Payer Phone Subscriber Number Group Number Insured Name Patient Relationship to Insured Coverage Start Date Coverage End Date [facility] [address] [place] [phone] [id number] MAYO JOSE Self - patient is the insured MEDICAL (GENERAL) HISTORY Medical History History ICD Code Gastroesophageal reflux dise ase, EGD 12/19/17, no H. pylori or Juarez's esophagus. colon polyps, colonoscopy 07/08, tubular adenoma, five-year followup Right kidney oncocytoma BPH Hemorrhoids Surgical History Surgery Date(Month/Year) lumpectomy on chest
--- OUTSIDE RECORDS SUMMARY | 2024-06-09 13:11 | XMS_ITS | Clinical Summary ---
Author Organization [facility] Address [address] [place] [address] Care Team Providers Care Academic Coordinator Name Role Phone Conor Vargas MD Primary Care Provider [phone] Allergies Active Allergy Reactions Criticality Noted Date [...] this topic Zoster (Zostavax) Discontinued Care Teams Academic Coordinator Relationship Specialty Start Date End Date Conor Vargas MD [address] [place] [address] PCP - General 11/25/22
--- OUTSIDE RECORDS SUMMARY | 2024-06-09 13:11 | XMS_ITS | Data Portability ---
Author Organization [facility] [address] Address [address] [place] [address] Assessment No assessment recorded. Plan of Treatment Reminders Order Date Submit Date Provider Last Modified By Organization Details Last Modified Time Details Appointments None recorded. Lab None recorded. Referral None recorded. Procedures None recorded. Surgeries None recorded. Imaging None recorded. Medication Orders Bactrim DS 800 mg-160 mg tablet [facility] #[id number], [address] [place], [address], 19:35:57 Patient TargetsNo targets recorded. Patient Instructions Encounter Date Encounter Id Patient Instructions Last Modified By Organization Details Last Modified Time 02/13/2023 [id number] You can take ove r the counter tylenol or ibuprofen per package instructions for the pain. See printed instructions. Follow-up with your doctor if no improvement in 1 week. Seek Emergency Medical evaluation for any worsening symptoms. [email or web address] Not available 02/13/2023 19:35:55 Reason for Referral None Reported. Problems Name Problem SNOMED Code Status Onset Date Resolution Date Notes Provider Name and Address Organization Details Recorded Time Acid reflux 141154355 Active 023 [facility] 02/13/2023 18:55:52 Problem Notes None recorded. Medical Equipment None Reported. Allergies Allergen ID Allergen Name Allergen Category Reaction Reaction Severity Criticality Documentation Date Start Date Code Code System Note Provider Name and Address Organization Details Recorded Time 564356 amoxicill in medicatio n rash Not available Not available 02/13/2023 723 [facility] 18:54:22 999618 Product containin g penicilli n (product) medicatio n rash Not available Not available 02/13/2023 13271 8001 SNOMED ELISSA BOB pichardo PA - [facility] 18:54:31 Medications Name Sig Start Date [...] Address Organization Details Last Updated DateTime 3 3 185.42 cm 34.3 kg/m2 029102. 02 g 18 /min 97.3 [degF] 96 % 96 % 104 /min 113 mm[Hg] 77 mm[Hg] ELISSA ROJAS PA - [facility] 18:58:07 Social History Question Answer Notes LastModified by Organizat ion Details LastModified Time Tobacco Smoking Status Never Smoker ELISSA BOB pichardo PA - [facility] 02/13/2023 18:56:34 What Is Your Level Of Alcohol Consumption? None [email or web address] Information not available 02/13/2023 Do You Use Any Illicit Or Recreational Drugs? No Information not available 02/13/2023 Have You Recently Traveled Abroad? No [email or web address] Information not available 02/13/2023 Do You Or Have You Ever Used Any Other Forms Of Tobacco Or Nicotine? No [email or web address] Information not available 02/13/2023 Sex: Unknown Functional Status None recorded. Mental Status None recorded. Family History Relationship Description Onset Age of this Age Resolved Age Notes LastModified by Organization Details LastModified Time Father Malignant tumor of stomach [email or web address] Not available 2022 18:56:09 Sister Malignant tumor of colon [email or web address] Not available 2022 18:56:18 Medical History No medical history recorded. Immunizations Vaccine Type Date Status Note Provider Nam e and Address Organization Details Recorded Time Tdap 02/13/2023 completed BERNA ALLISON MD [address] [place], [address], [place] - [facility] 02/13/2023 19:49:17 Past Encounters Encounter ID Performer Location Encounter Start Date Encounter Closed Date Diagnosis/Indication Diagnosis SNOMED-CT Code Diagnosis ICD10 Code Diagnosis Note [id number] [address] [place] [address] 02/07/2019 09:41:50 02/07/2019 10:10:13 [id number] [facility] [address] [address] [place] [address] 02/13/2023 17:46:59 02/13/2023 19:51:12 Puncture wound of sole of foot 300302190 S91.331A Warm soaks for 20 minutes 2 [...] Member ID Guarantor Name 02/07/2019 1 [facility] [id number] Pineda Barnish [id number] Pineda Hoffmannish 02/13/2023 1 [facility] [id number] Pineda Barnish [id number] Pineda Reyes Notes Date Note Type Note Provider Name and Address Organization Details Recorded Time 02/13/2023 text/html 58 yo. male stepped on nail noon today with it penetrating his boot on his rt foot. He is here for evaluation and & a tetanus shot BERNA ALLISON MD [address] [place], [address], [place] - [facility] 02/13/2023 19:52:35
[2024-06-09 13:17] VITALS: BP 114/70; PULSE 95; RESP 20; TEMP 36.5; O2SAT 98; BMI 33.2
--- NOTE | 2024-06-09 13:17 | A.OFFPC_ITS ---
Vital Signs 06/09/24 13:17 Height 6 ft 1 in Weight 252 lb BMI 33.2 BP 114/70 Blood Pressure Location Rt brachial Position Sitting Respiration 20 Pulse 95 Pulse Source Pulse Oximeter Temp 97.7 F Temp Source Oral Pulse Oximetry (%) 98 Oxygen Delivery Method Room Air Intake Visit Reasons: UTI issues Intake Note: Pt is here today for a follow up visit on UTI issue. Allergies amoxicillin [AMOXICILLIN] Allergy (Unknown, Verified 06/09/24 13:18) RASH penicillin G Allergy (Unknown, Verified 06/09/24 13:18) Rash finasteride Adverse Reaction (Intermediate, Verified 06/09/24 13:18) LOSS GENITAL SENSATION tamsulosin Adverse Reaction (Intermediate, Verified 06/09/24 13:18) Drowsy Medication List - Last Reconciled 06/09/24 by Michelle Streeter MD alfuzosin ER 10 mg PO BEDTIME 90 days finasteride 5 mg PO DAILY hydrocortisone acetate (Anusol-HC) 25 mg UT BEDTIME pantoprazole 40 mg PO DAILY Tobacco use date assessed: 06/09/24 Dental Screening Dental Screen Date: 06/03/24 HPI UTI issues HPI Details Patient presents complaining of persistent productive with green sputum cough, chest tightness low-grade fever sinus congestion for 10 days. He denies fever or chills, pleurisy. patient completed a course of Macrobid for presumed UTI but reports persistent increased frequency of urination and nocturia, sensation of incomplete bladder emptying but no dysuria abdominal or pelvic pain nausea vomiting. [facility] Medical History Renal mass Annual physical exam BPH (benign prostatic hyperplasia) Abnormal colonoscopy Surgical History History of removal of cyst Family History Father Stomach cancer Mini stroke Smoker COPD (chronic obstructive pulmonary disease) Mother No problems noted. Maternal Grandmother Lung cancer Social History Household Members Other:: exercise, Housing: House Alcohol intake: current Alcohol intake frequency: holidays/special occasions only Patient Tobacco Use Status: Never used Tobacco e-Cigarette/Vaping Use: Never Used service: No Current occupational status: employed Cognitive needs: No Hearing needs: No Vision needs: Yes Questionnaire Thrive Questionnaire Date Thrive assessed: 06/03/24 I am a: Patient What is your living situation today?: I choose not to answer this question Within the past 12 months, did the food you bought not last and you didn't have the money to get more?: I choose not to answer this question Within the past 12 months, did you worry whether your food would run out before you got money to buy more?: I choose not to answer this question Do you have trouble paying for medicines?: No Do you have trouble getting transportation to medical appointments?: No Do you have trouble paying your heating and electricity bill?: No Do you have trouble taking care of your child, family member or friend?: No Do you have trouble with day-to-day activities such as bathing, preparing meals, shopping, managing finances, etc.?: No Are you currently unemployed and looking for a job?: No Are you interested in more education?: No Please select the resources that you would like help with: None Currently or been in a relationship where the following occur: No concerns reported and I choose not to answer THRIVE Score: 0 AUDIT C Alcohol Use Questionnaire (AUDIT-C) 1. How often do you have a drink containing alcohol?: Never Total Score: 0 LESLY-7 AMB Questionnaire LESLY-7 Date LESLY - 7 assessed: 06/03/24 Feeling nervous, anxious, or on edge: 0 = Not at all Not being able to stop or control worryin = Not at all Worrying too much about different things: 0 = Not at all Trouble relaxin = Not at all Being so restless that it is hard to sit still: 0 = Not at all Becoming easily annoyed or irritable: 0 = Not at all Feeling afraid as if something awful might happen: 0 = Not at all Total LESLY-7 score (0-4 normal; 5-9 mild; 10-14 moderate; 15-21 severe): 0 Source: Developed by Drs. Jose Mejia, Dara Cope, Raj Don and colleagues, with an educational kevin from [employer] Review of Systems Const All systems reviewed & are unremarkable except as noted in HPI and below Eyes Reports no additional complaints ENT Reports no additional complaints Card Reports no additional complaints Resp Reports no additional complaints GI Reports no additional complaints Reports no additional complaints Physical exam (Primary Care) Vital Signs: Last Vital Signs Temp 97.7 F 06/09/24 13:17 Pulse 95 06/09/24 13:17 Resp 20 06/09/24 13:17 BP 114/70 06/09/24 13:17 Pulse Ox 98 06/09/24 13:17 Oxygen Delivery Method Room Air 06/09/24 13:17 BMI result Body Mass Index 33.2 Tobacco/Smoking Status: Tobacco use Status Tobacco use date assessed 06/09/24 06/09/24 13:18 Patient Tobacco Use Status Never used Tobacco 06/09/24 13:18 e-Cigarette/Vaping Use Never Used 06/09/24 13:18 Thrive Assessment: Date of Thrive Assessment Date Thrive assessed 06/03/24 06/09/24 13:18 Currently or been in a relationship where the following occur: No concerns reported and I choose not to answer Const General: no acute distress HENMT Head: Yes normal to inspection Ears: TM's normal bilaterally Throat: Yes posterior oropharynx abnormal and Yes postnasal drainage Neck Neck: Yes supple Resp Effort & Inspection: normal respiratory effort Auscultation: rhonchi and wheezes Cardio Rhythm: regular rhythm Heart sounds: S1 normal heart sound present and S2 normal heart sound present GI Inspection: Yes normal to inspection Palpation (GI): Soft to palpation Percussion: Yes normal to percussion Auscultation: normal bowel sounds General: Yes no CVA tenderness Back/Spine/Pelvis Back: no CVA tenderness Coding Diagnoses URI (upper respiratory infection) J06.9 UTI (urinary tract infection) N39.0 Assessment & Plan Assessment & Plan (1) URI (upper respiratory infection): Code(s): J06.9 - Acute upper respiratory infection, unspecified Category: Medical Plan: Z-Alejandro and albuterol inhaler prescribed and supportive care discussed with the patient (2) UTI (urinary tract infection): Code(s): N39.0 - Urinary tract infection, site not specified Category: Medical Plan: Check UA and urine culture after the treatment. Continue alfuzosin and finasteride. Patient will return for bladder scan Orders: Orders AMB Urinalysis Automated Today Z13.9 - Encounter for screening, unspecified Urine Culture Today J06.9 - Acute upper respiratory infection, unspecified, N39.0 - Urinary tract infection, site not specified, R31.9 - Hematuria, unspecified Medications: New azithromycin For 250 mg dose pack: take 500 mg today (day 1), then 250 mg for 4 days (days 2-5) PO 6 tabs 0RF ProAir RespiClick 90 mcg/actuation (albuterol sulfate) 2 inhalations inhalation Q6H PRN 1 ea 0RF shortness of breath or wheezing NS
== END 2024-06-09 13:48 | disposition home or self-care (01) ==
PROVIDERS: PCP Internal Medicine; Visit Provider Internal Medicine
DX: Z13.9 Encounter for screening, unspecified (principal)

== ENCOUNTER 2024-06-09 12:58 | Outpatient (REF) | payer OTHER, SELFPAY ==
--- OUTSIDE RECORDS SUMMARY | 2024-06-09 14:09 | XMS_ITS | Clinical Summary ---
Author Organization [facility] Address [address] [place] [address] Care Team Providers Care Sales Floor Team Leader Name Role Phone Conor Vargas MD Primary Care Provider [phone] Allergies Active Allergy Reactions Criticality Noted Date [...] this topic Zoster (Zostavax) Discontinued Care Teams Sales Floor Team Leader Relationship Specialty Start Date End Date Conor Vargas MD [address] [place] [address] PCP - General 11/25/22
== END 2024-06-09 12:59 | disposition home or self-care (01) ==
LOC: HO.LAB 12:58
PROVIDERS: PCP Internal Medicine; Visit Provider Internal Medicine
DX: J06.9 Acute upper respiratory infection, unspecified (principal); N39.0 Urinary tract infection, site not specified; R31.9 Hematuria, unspecified
CPT/HCPCS: 81003; 87086; 87088; 87186

== ENCOUNTER 2024-06-10 15:23 | Outpatient (REF) | payer OTHER, SELFPAY ==
--- NOTE | ~2024-06-10 | US_ITS ---
EXAMINATION: US PELVIS LIMITED (BLADDER) CLINICAL INFORMATION: UTI, not otherwise specified.. COMPARISON: 03/25/2024 and 08/27/2022 renal ultrasound. TECHNIQUE: Real-time imaging of the bladder. FINDINGS: BLADDER: Well distended and normal wall thickness. There is mild internal specular debris layering dependently. No calculi. Bilateral ureteral jets are demonstrated. Prevoid bladder volume is 461 mL. Postvoid bladder volume is 149 mL. Prostate appears enlarged with estimated volume of 50.2 mL. US/US bladder IMPRESSION: 1. Small amount of specular layering debris within the urinary bladder. No wall thickening. Normal jets. 2. Post void residual of 149 mL. 3. Moderate prostate enlargement with estimated volume of 50.2 mL. Electronically signed by: Jayson Gonzalez MD 06/11/2024 10:[address] [facility]
--- OUTSIDE RECORDS SUMMARY | 2024-06-10 16:24 | XMS_ITS ---
Author Organization [facility] Address [address] [place] [address] Care Team Providers Care Brake Reliner Name Role Phone Michelle Streeter MD Primary Care Provider Thompson Garcia Jr [phone] REASON FOR VISIT voicemail MEDICATIONS Medication SIG (Take, Route, Frequency, Duration) Notes Start Date End Date Status Pantoprazole Sodium 40 MG take 1 tablet by mouth every day for 90 days Oral for 90 days Active Encounters Encounter Location Date Provider Diagnosis [facility] [address] [place] [address] 04/22/2023 Thompson Fernandez Jr Gastroesophageal reflux disease, [...] Provider Name:Thompson gonzalez Jr, 07/06/2024 10:40:00 AM, [address] [place] [address] , [place], [place], [phone], Provider Name:Thompson gonzalez Jr, 07/29/2024 03:15:00 PM, [address] [place] [address], [address], [place], [address],
--- OUTSIDE RECORDS SUMMARY | 2024-06-10 16:24 | XMS_ITS | Data Portability ---
Author Organization [facility] [address] Address [address] [place] [address] Assessment No assessment recorded. Plan of Treatment Reminders Order Date Submit Date Provider Last Modified By Organization Details Last Modified Time Details Appointments None recorded. Lab None recorded. Referral None recorded. Procedures None recorded. Surgeries None recorded. Imaging None recorded. Medication Orders Bactrim DS 800 mg-160 mg tablet [id number], [address] [place], [address], 19:35:57 Patient TargetsNo targets recorded. Patient Instructions Encounter Date Encounter Id Patient Instructions Last Modified By Organization Details Last Modified Time 02/13/2023 [id number] You can take ove r the counter tylenol or ibuprofen per package instructions for the pain. See printed instructions. Follow-up with your doctor if no improvement in 1 week. Seek Emergency Medical evaluation for any worsening symptoms. [email or web address] Not available 02/13/2023 19:35:55 Reason for Referral None Reported. Problems Name Problem SNOMED Code Status Onset Date Resolution Date Notes Provider Name and Address Organization Details Recorded Time Acid reflux 435137932 Active 023 [facility] 02/13/2023 18:55:52 Problem Notes None recorded. Medical Equipment None Reported. Allergies Allergen ID Allergen Name Allergen Category Reaction Reaction Severity Criticality Documentation Date Start Date Code Code System Note Provider Name and Address Organization Details Recorded Time 267777 amoxicill in medicatio n rash Not available Not available 02/13/2023 723 [facility] 18:54:22 164044 Product containin g penicilli n (product) medicatio n rash Not available Not available 02/13/2023 36003 8001 SNOMED ELISSA BOB pichardo PA - [email or web address] 18:54:31 Medications Name Sig Start Date [...] DateTime 3 3 185.42 cm 34.3 kg/m2 484623. 02 g 18 /min 97.3 [degF] 96 % 96 % 104 /min 113 mm[Hg] 77 mm[Hg] ELISSA ROJAS PA - [facility] 18:58:07 Social History Question Answer Notes LastModified by Organizat ion Details LastModified Time Tobacco Smoking Status Never Smoker ELISSA BOB pichardo PA - [facility] 02/13/2023 18:56:34 What Is Your Level Of Alcohol Consumption? None [email or web address] Information not available 02/13/2023 Do You Use Any Illicit Or Recreational Drugs? No [email or web address] Information not available 02/13/2023 Have You Recently Traveled Abroad? No [email or web address] Information not available 02/13/2023 Do You Or Have You Ever Used Any Other Forms Of Tobacco Or Nicotine? No Information not available 02/13/2023 Sex: Unknown Functional Status None recorded. Mental Status None recorded. Family History Relationship Description Onset Age of this Age Resolved Age Notes LastModified by Organization Details LastModified Time Father Malignant tumor of stomach Not available 2022 18:56:09 Sister Malignant tumor of colon Not available 2022 18:56:18 Medical History No medical history recorded. Immunizations Vaccine Type Date Status Note Provider Nam e and Address Organization Details Recorded Time Tdap 02/13/2023 completed BERNA ALLISON MD [address] [place], [address], [place] - [facility] 02/13/2023 19:49:17 Past Encounters Encounter ID Performer Location Encounter Start Date Encounter Closed Date Diagnosis/Indication Diagnosis SNOMED-CT Code Diagnosis ICD10 Code Diagnosis Note [id number] [address] [place] [address] 02/07/2019 09:41:50 02/07/2019 10:10:13 [id number] B[place] [address] [address] [place] [address] 02/13/2023 17:46:59 02/13/2023 19:51:12 Puncture wound of sole of foot [id number] S91.331A Warm soaks for 20 minutes 2 [...] Fuente Member ID Guarantor Name 02/07/2019 1 [facility] [id number] Pineda Barnish [id number] Pineda Hoffmannish 02/13/2023 1 [facility] [id number] Pineda Barnish [id number] Pineda Reyes Notes Date Note Type Note Provider Name and Address Organization Details Recorded Time 02/13/2023 text/html 58 yo. male stepped on nail noon today with it penetrating his boot on his rt foot. He is here for evaluation and & a tetanus shot BERNA ALLISON MD [address] [place], [address], [place] - [facility] 02/13/2023 19:52:35
--- OUTSIDE RECORDS SUMMARY | 2024-06-10 16:24 | XMS_ITS | Clinical Summary ---
Author Organization [facility] Address [address] [place] [address] Care Team Providers Care Gas Analyst Name Role Phone Conor Vargas MD Primary [...] this topic Zoster (Zostavax) Discontinued Care Teams Gas Analyst Relationship Specialty Start Date End Date Conor Vargas MD [address] [place] [address] PCP - General 11/25/22
--- OUTSIDE RECORDS SUMMARY | 2024-06-10 16:24 | XMS_ITS ---
Author Organization [facility] Address [address] [place] [address] Care Team Providers Care Heating And Refrigeration Inspector Name Role Phone Michelle Streeter MD Primary [...] 05/26/2024 Encounters Encounter Location Date Provider Diagnosis [facility] [address] [place] [address] 05/26/2024 Thompson Fernandez Jr Gastroesophageal reflux disease, [...] Provider Name:Thompson gonzalez Jr, 07/06/2024 10:40:00 AM, [address] [place] [address], [phone], Provider Name:Thompson gonzalez Jr, 07/29/2024 03:15:00 PM, [address] [place] [address], [address], [place], [address], Progress Notes * Examination Category Sub-Category Detail Notes General Examination GENERAL APPEARANCE: in no ac [place]of [place] distress HEAD: normocephalic EYES: sclera non-icteric NECK/THYROID: no lymphadenopathy HEART: S1, S2 normal, no mu rmurs CHEST: normal shape and exp ansion LUNGS: clear to auscultatio n bilaterally ABDOMEN: soft, nontender, non distended, bowel sounds present, no organomegaly SKIN: anicteric EXTREMITIES: no clubbing, cyanosi s, or edema PSYCH: cognitive function i ntact ORAL CAVITY: mucosa moist
--- OUTSIDE RECORDS SUMMARY | 2024-06-10 16:24 | XMS_ITS | Patient Health Record ---
Author Organization [facility] Address [address] [place] [address] Care Team Providers Care Geophysicist Name Role Phone Michelle Streeter MD Primary [...] Problem Colon cancer screening (Z12.11) Active confirmed [id number] Problem Gastroesophageal reflux disease, esophagitis presence not specified (K21.9) Active confirmed [id number] VITAL SIGNS Temperature 96.9 degrees Fahrenheit 05/26/2024 Blood pressure diastolic 00 mm Hg 05/26/2024 Height 73 in 05/26/2024 Blood pressure systolic 000 mm Hg 05/26/2024 Weight 258 lb 8 oz lbs 05/26/2024 BMI 34.10 kg/m2 05/26/2024 Encounters Encounter Location Date Provider Diagnosis [facility] [address] [place] [address] 05/26/2024 Thompson Fernandez Jr Gastroesophageal reflux disease, [...] Provider Name:Thompson gonzalez Jr, 07/06/2024 10:40:00 AM, [address] [place] [address] , [place], [place], [phone], Provider Name:Thompson gonzalez Jr, 07/29/2024 03:15:00 PM, [address] [facility] [address], [address] [facility], [place], [address], Insurance Providers Payer Name Payer Address Payer Phone Subscriber Number Group Number Insured Name Patient Relationship to Insured Coverage Start Date Coverage End Date [facility] [address] [place] [phone] [id number] MAYO JOSE Self - patient is the insured MEDICAL (GENERAL) HISTORY Medical History History ICD Code Gastroesophageal reflux dise ase, EGD 12/19/17, no H. pylori or Juarez's esophagus. colon polyps, colonoscopy 07/08, tubular adenoma, five-year followup Right kidney oncocytoma BPH Hemorrhoids Surgical History Surgery Date(Month/Year) lumpectomy on chest
== END 2024-06-10 15:24 | disposition home or self-care (01) ==
LOC: HO.HMGCX 15:23
PROVIDERS: PCP Internal Medicine; Visit Provider Internal Medicine
DX: N39.0 Urinary tract infection, site not specified (principal)
CPT/HCPCS: 76857

== ENCOUNTER → 2024-06-10 15:28 | Outpatient (BNV) | payer OTHER, SELFPAY | PROVIDERS: PCP Internal Medicine; Visit Provider Radiology Diagnostic Radiology | DX: N39.0 Urinary tract infection, site not specified (principal); N40.1 Benign prostatic hyperplasia with lower urinary tract symptoms | CPT/HCPCS: 76857 ==

== ENCOUNTER 2024-06-25 11:26 | Outpatient (REF) | payer OTHER, SELFPAY ==
--- OUTSIDE RECORDS SUMMARY | 2024-06-25 13:19 | XMS_ITS ---
Author Organization [facility] Address [address] [place] [address] Care Team Providers Care Batch Trucker Name Role Phone Michelle Streeter MD Primary Care Provider UnavailThompson Royal Jr Unavailable [phone] Allergies Allergen (clinical drug ingredient) Drug/Non Drug Allergy documented on EMR Reaction Allergy Type Onset Date Status amoxicillin Amoxicillin Unknown Drug Allergy Act deanna REASON FOR VISIT Patient presents today for a colon recall Medications Medication SIG (Take, Route, Frequency, Duration) Notes [...] 90 days Oral for 90 days Active Immunizations Vaccine Route Administration Date Status Comme nts Influenza Unknown 05/26/2024 Refused Social History Alcohol Screen Question Answer Notes Did you have a drink containing alcohol in the p ast year? No Points 0 Interpretation Negative Vital Signs Temperature 96.9 degrees Fahrenheit 05/26/19 25 Blood pressure systolic 000 mm Hg 05/26/19 25 Blood pressure diastolic 00 mm Hg 025 Height 73 in 05/26/2024 Weight 258 lb 8 oz lbs 05/26/2024 BMI 34.10 kg/m2 05/26/2024 Encounters Encounter Location Date Provider Diagnosis [facility] [address] [place] [address] 05/26/2024 Thompson Fernandez Jr Gastroesophageal reflux disease, esophagitis presence not specified K21.9 and Colon cancer screening Z12.11 Assessments Encounter Date Diagnosis (ICD Code) Assessment Notes Treatment Notes Treatment Clinical Notes Section Notes 05/26/2024 Gastroesophageal reflux disease, esophagitis presence not specified (ICD-10 - K21.9) At this time, he is doing well. We discussed gastroesophageal reflux disease today. We discussed diet, lifestyle modifications, and weight management regarding the treatment of reflux. We recommended he continue pantoprazole. He is due for followup with respect to his colon polyp and his family history colon cancer. We discussed risks and benefits of colonoscopy today. He understands these and agrees to proceed. 05/26/2024 Colon cancer screening (ICD-10 - Z12.11) Colonoscopy material was printed At this time, he is doing well. We discussed gastroesophageal reflux disease today. We discussed diet, lifestyle modifications, and weight management regarding the treatment of reflux. We recommended he continue pantoprazole. He is due for followup with respect to his colon polyp and his family history colon cancer. We discussed risks and benefits of colonoscopy today. He understands these and agrees to proceed. Plan Of Treatment Medication Medication Name Sig Start Date Stop [...] Provider Name:Thompson gonzalez Jr, 07/06/2024 10:40:00 AM, [address] [place] [address], [id number], Provider Name:Thompson gonzalez Jr, 07/29/2024 03:15:00 PM, [address] [place] [address], [facility], [place], [address], Progress Notes * MAYO JOSE JrDOB:1964 (59 yo M)Acc No.[id number]:05/26/2024 Progress Notes Patient:?MAYO JOSE Provider:?Thompson Fernandez MD :1965???Age:59 Y???Sex:Male Alvin e:05/26/2024 Address:[address] [place] [address], [facility] [place] [id number] Pcp:Michelle Streeter MD Subjective: * Chief Complaints: * ???1. Patient presents today for a colon recall. * HPI: ???New symptom(s):? The patient is a 59-year-old man seen today in followup of gastroesophageal reflux disease and colon cancer screening. Since we saw him last, he's been doing well. Reflux symptoms have improved after he lost some weight, but he did manage to put some back on. He continues on pantoprazole 40 mg daily which controls his symptoms well. He has no dysphagia, hematemesis, or melena. ?He is due for colorectal cancer screening. He has no complaints of rectal bleeding but did have a hemorrhoid that was treated medically. He did not require surgery. He has no abdominal or rectal pain at this time. * ROS:?General/Constitutional:?Change in appetite?denies.?Fatigue?denies.?ENT:?Patient denies?difficulty swallowing.?Respiratory:?Patient denies?shortness of breath.?Cardiovascular:?Patient denies?chest pain.?Gastrointestinal:?Comments?See HPI for details.?Genitourinary:?Difficulty urinating?denies.?Incontinence?denies.?Musculoskeletal:?Patient denies?muscle aches.?Skin:?Patient denies?pruritis.?Neurologic:?Patient denies?low back pain.?Psychiatric:?Patient denies?mental or physical abuse.? * Medical History:?Gastroesoph ageal reflux disease, EGD 12/19/17, no H. pylori or Juarez's esophagus., Colon polyps, colonoscopy 07/08, tubular adenoma, five-year followup, Right kidney oncocytoma, BPH, Hemorrhoids. * Surgical History:?lumpectomy on chest . * Family History:?Father: jose juan everett 82 yrs, stomach cancer at age 70.?Mother: alive.?Siblings: alive, diagnosed with Colon cancer.? No family history of liver cancer. Sister had colon cancer. * Social History:?Tobacco Use:?Tobacco Use/Smoking?Are you a: nonsmoker.?Drugs/Alcohol:?Alcohol Screen?Did you have a drink containing alcohol in the past year??No,?Points?0,?Interpretation?Negative.?Miscellaneous:?Marital status: . Occupation: truck and transport mechanic. * Medications:?Taking Multivit acuña - Tablet 1 tablet Orally Once a day, Taking Alfuzosin HCl ER 10 MG Tablet Extended Release 24 Hour Oral , Taking Pantoprazole Sodium 40 MG Tablet Delayed Release take 1 tablet by mouth every day for 90 days Oral , Medication List reviewed and reconciled with the patient * Allergies:?Amoxicillin. Objective: * Vitals:?Wt: 258 lb 8 oz, Ht: 73 in, BMI:34.10 Index, BP: 000/00 mm Hg, Temp: 96.9. * Examination: ???General Examination: ?GENERAL APPEARANCE:?in no acute distress.?HEAD:?normocephalic.?EYES:?sclera non-icteric.?ORAL CAVITY:?mucosa moist.?NECK/THYROID:?no lymphadenopathy.?SKIN:?anicteric.?HEART:?S1, S2 normal, no murmurs.?LUNGS:?clear to auscultation bilaterally.?CHEST:?normal shape and expansion.?ABDOMEN:?soft, nontender, nondistended, bowel sounds present, no organomegaly .?EXTREMITIES:?no clubbing, cyanosis, or edema.?PSYCH:?cognitive function intact.? Assessment: * Assessment: 1.?Gastroesophageal reflux d isease, esophagitis presence not specified - K21.9 (Primary)?2.?Colon cancer screening - Z12.11? At this time, he is doing we ll. We discussed gastroesophageal reflux disease today. We discussed diet, lifestyle modifications, and weight management regarding the treatment of reflux. We recommended he continue pantoprazole. He is due for followup with respect to his colon polyp and his family history colon cancer. We discussed risks and benefits of colonoscopy today. He understands these and agrees to proceed. Plan: * Treatment: * Immunizations:? Influenza (Not administered - Refused: Patient decision) * Procedure Codes:?3017F COLOR ECTAL CA SCREEN DOC REV, G9903 Pt scrn tbco id as non user, G9745 DOC RSN FOR NOT SCREEN/REC F/U HBP * Preventive Medicine:? ??Counseling:?Care goal follow-up plan:?Above Normal BMI Follow-up?Giving encouragement to exercise,?BMI management provided?Yes.? * Follow Up:?1 Year * * Sign off status: Completed true * Provider:?Thompson Fernandez MD Date:?0 05/26/2024 Generated for Hill muhammad/Kane/Melodieitting on:?06/25/2024 01:19 PM EST History and Physical Notes * HPI (History of Present Illness) Category Sub-Category Detail Notes Category Not es New symptom(s) The patient is a 59-year-old man seen today in followup of gastroesophageal reflux disease and colon cancer screening. Since we saw him last, he's been doing well. Reflux symptoms have improved after he lost some weight, but he did manage to put some back on. He continues on pantoprazole 40 mg daily which controls his symptoms well. He has no dysphagia, hematemesis, or melena. He is due for colorectal cancer screening. He has no complaints of rectal bleeding but did have a hemorrhoid that was treated medically. He did not require surgery. He has no abdominal or rectal pain at this time. Examination Category Sub-Category Detail Notes Category Not es General Examination GENERAL APPEARANCE: in no acute di stress HEAD: normocephalic EYES: sclera non-icteric NECK/THYROID: no lymphadenopathy HEART: S1, S2 normal, no mu rmurs CHEST: normal shape and exp ansion LUNGS: clear to auscultatio n bilaterally ABDOMEN: soft, nontender, non distended, bowel sounds present, no organomegaly SKIN: anicteric EXTREMITIES: no clubbing, cyanosi s, or edema PSYCH: cognitive function i ntact ORAL CAVITY: mucosa moist
--- OUTSIDE RECORDS SUMMARY | 2024-06-25 13:19 | XMS_ITS ---
Author Organization [facility] Address [address] [place] [address] Care Team Providers Care Site Auditor Name Role Phone Michelle Streeter MD Primary Care Provider Thompson Garcia Jr REASON FOR VISIT voicemail Medications Medication SIG (Take, Route, Frequency, Duration) Notes Start Date End Date Status Pantoprazole Sodium 40 MG take 1 tablet by mouth every day for 90 days Oral for 90 days Active Encounters Encounter Location Date Provider Diagnosis [facility] [address] [facility] [place] [address] 04/22/2023 Thompson Fernandez Jr Gastroesophageal reflux disease, esophagitis presence not specified K21.9 Assessments Encounter Date Diagnosis (ICD Code) Assessment Notes Treatment Notes Treatment Clinical Notes Section Notes 04/22/2023 Gastroesophageal reflux disease, esophagitis presence not specified (ICD-10 - K21.9) Plan Of Treatment Medication Medication Name Sig Start Date Stop Date Notes Pantoprazole Sodium 40 MG take 1 tablet by mouth every day for 90 days Oral for 90 days Next Appt Details Provider Name:Thompson gonzalez Jr, 07/06/2024 10:40:00 AM, [address] [place] [address] , [place], [place], [phone], Provider Name:Thompson gonzalez Jr, 07/29/2024 03:15:00 PM, [address] [place] [address], [address], [place], [address], Progress Notes * MAYO JOSE JrDOB:1964 (58 yo M)Acc No.[id number]:04/22/2023 Patient:MAYO MARLEY :1965???Age:58 Y???Sex:Male Address:[address] [place] [address], [place], [address] * Refills? Refill Pantoprazole Sodium Tablet Delayed Release, 40 MG, Oral, 90, take 1 tablet by mouth every day for 90 days, 90 days, Refills=4 * true * Date:? Generated for Hill muhammad/Kane/eTransmitting on:?06/25/2024 01:19 PM EST
--- OUTSIDE RECORDS SUMMARY | 2024-06-25 13:20 | XMS_ITS | Data Portability ---
Author Organization [facility] [address] Address [address] [place] [address] Assessment No assessment recorded. Plan of Treatment Reminders Order Date Submit Date Provider Last Modified By Organization Details Last Modified Time Details Appointments None recorded. Lab None recorded. Referral None recorded. Procedures None recorded. Surgeries None recorded. Imaging None recorded. Medication Orders Bactrim DS 800 mg-160 mg tablet [id number], [address] [place], [address], 19:35:57 Patient TargetsNo targets recorded. Patient Instructions Encounter Date Encounter Id Patient Instructions Last Modified By Organization Details Last Modified Time 02/13/2023 [id number] You can take ove r the counter tylenol or ibuprofen per package instructions for the pain. See printed instructions. Follow-up with your doctor if no improvement in 1 week. Seek Emergency Medical evaluation for any worsening symptoms. [email or web address] Not available 02/13/2023 19:35:55 Reason for Referral None Reported. Problems Name Problem SNOMED Code Status Onset Date Resolution Date Notes Provider Name and Address Organization Details Recorded Time Acid reflux 479640709 Active 023 [facility] 02/13/2023 18:55:52 Problem Notes None recorded. Medical Equipment None Reported. Allergies Allergen ID Allergen Name Allergen Category Reaction Reaction Severity Criticality Documentation Date Start Date Code Code System Note Provider Name and Address Organization Details Recorded Time 030191 amoxicill in medicatio n rash Not available Not available 02/13/2023 723 [facility] 18:54:22 419236 Product containin g penicilli n (product) medicatio n rash Not available Not available 02/13/2023 67424 8001 SNOMED ELISSA BOB pichardo PA - [facility] 18:54:31 Medications Name Sig Start Date [...] DateTime 3 3 185.42 cm 34.3 kg/m2 590362. 02 g 18 /min 97.3 [degF] 96 % 96 % 104 /min 113 mm[Hg] 77 mm[Hg] ELISSA ROJAS PA - [facility] 18:58:07 Social History Question Answer Notes LastModified by Organizat ion Details LastModified Time Tobacco Smoking Status Never Smoker ELISSA BOB pichardo [place] - [facility] 02/13/2023 18:56:34 What Is Your Level Of Alcohol Consumption? None Information not available 02/13/2023 Do You Use Any Illicit Or Recreational Drugs? No [email or web address] Information not available 02/13/2023 Have You Recently Traveled Abroad? No [email or web address] Information not available 02/13/2023 Do You Or Have You Ever Used Any Other Forms Of Tobacco Or Nicotine? No [email or web address] Information not available 02/13/2023 Sex: Unknown Functional Status None recorded. Mental Status None recorded. Family History Relationship Description Onset Age of this Age Resolved Age Notes LastModified by Organization Details LastModified Time Father Malignant tumor of stomach [email or web address] Not available 2022 18:56:09 Sister Malignant tumor of colon [email or web address] Not available 2022 18:56:18 Medical History No medical history recorded. Immunizations Vaccine Type Date Status Note Provider Nam e and Address Organization Details Recorded Time Tdap 02/13/2023 completed BERNA ALLISON MD [address] [place], [address], [place] - [facility] 02/13/2023 19:49:17 Past Encounters Encounter ID Performer Location Encounter Start Date Encounter Closed Date Diagnosis/Indication Diagnosis SNOMED-CT Code Diagnosis ICD10 Code Diagnosis Note [id number] [address] [place] [address] 02/07/2019 09:41:50 02/07/2019 10:10:13 [id number] [facility] [address] [address] [place] [address] 02/13/2023 17:46:59 02/13/2023 19:51:12 Puncture wound of sole of foot [id number] S91.331A Warm soaks for 20 minutes 2 [...] ID Guarantor Name 02/07/2019 1 [facility] [id number] Pineda Barnish [id number] Pineda Hoffmannish 02/13/2023 1 [facility] [id number] Pineda Barnish [id number] Pineda Reyes Notes Date Note Type Note Provider Name and Address Organization Details Recorded Time 02/13/2023 text/html 58 yo. male stepped on nail noon today with it penetrating his boot on his rt foot. He is here for evaluation and & a tetanus shot BERNA ALLISON MD [address] [place], [address], [place] - [facility] 02/13/2023 19:52:35
--- OUTSIDE RECORDS SUMMARY | 2024-06-25 13:20 | XMS_ITS | Patient Health Record ---
Author Organization [facility] Address [address] [place] [address] Care Team Providers Care Ear Flap Binder Name Role Phone Michelle Streeter MD Primary Care Provider Thompson Garcia Jr Unavailable [phone] Allergies Allergen (clinical drug ingredient) Drug/Non Drug Allergy documented on EMR Reaction Allergy Type Onset Date Status amoxicillin Amoxicillin Unknown Drug Allergy Act deanna Reason For Referral No Information Medications Medication SIG (Take, Route, Frequency, Duration) [...] Unknown 02/21/2022 Refused Influenza Unknown 05/26/2024 Refused Social History Alcohol Screen Question Answer Notes Did you have a drink containing alcohol in the p ast year? No Points 0 Interpretation Negative Problems Problem Type SNOMED Code ICD Code Onset Dates Problem Status W/U Status Risk Notes Problem 002051949 Colon cancer screening (Z12.11) Active confirmed Problem 295223579 Gastroesophageal reflux disease, esophagitis presence not specified (K21.9) Active confirmed Vital Signs Temperature 96.9 degrees Fahrenheit 05/26/2024 Blood pressure diastolic 00 mm Hg 05/26/2024 Height 73 in 05/26/2024 Blood pressure systolic 000 mm Hg 05/26/2024 Weight 258 lb 8 oz lbs 05/26/2024 BMI 34.10 kg/m2 05/26/2024 Encounters Encounter Location Date Provider Diagnosis [facility] [address] [place] [address] 05/26/2024 Thompson Fernandez Jr Gastroesophageal reflux disease, esophagitis presence not specified K21.9 and Colon cancer screening Z12.11 Assessments Encounter Date Diagnosis (ICD Code) Assessment Notes Treatment Notes Treatment Clinical Notes Section Notes 05/26/2024 Colon cancer screening (ICD-10 - Z12.11) [...] understands these and agrees to proceed. 05/26/2024 Gastroesophageal reflux disease, esophagitis presence not [...] and agrees to proceed. Plan Of Treatment Future Test Test Name Order Date UPPER GI ENDOSCOPY 09/30/2013 COLONOSCOPY 09/30/2013 UPPER GI ENDOSCOPY 11/06/2017 COLONOSCOPY 05/26/2024 Next Appt Details Provider Name:Thompson gonzalez Jr, 07/06/2024 10:40:00 AM, [address] [place] [address] , [place], [place], [phone], Provider Name:Thompson gonzalez Jr, 07/29/2024 03:15:00 PM, [address] [facility], [address], [place], [address], Insurance Providers Payer Name Payer Address Payer Phone Subscriber Number Group Number Insured Name Patient Relationship to Insured Coverage Start Date Coverage End Date [facility] [address] [place] [address] [phone] [id number] MAYO JOSE Self - patient is the insured Medical (General) History Medical History History ICD Code Gastroesophageal reflux dise ase, EGD 12/19/17, no H. pylori or Juarez's esophagus. colon polyps, colonoscopy 07/08, tubular adenoma, five-year followup Right kidney oncocytoma BPH Hemorrhoids Surgical History Surgery Date(Month/Year) lumpectomy on chest
[2024-06-25 13:26] LABS: MANUAL DIFF FLAG NO
[2024-06-25 13:31] LABS: Basophils Absolute Auto 0.1 X10*3/uL (0.0-0.2); Basophils Percent Auto 0.9 % (0-2); Eosinophils Absolute Auto 0.2 X10*3/uL (0.0-0.4); Eosinophils Percent Auto 3.4 % (0-4); Hematocrit 43.3 % (42.0-52.0); Hemoglobin 14.9 g/dl (14.0-18.0); Imm Gran Abs Auto 0.02 X10*3/uL (0.00-0.03); Imm Gran Pct Auto 0.4 % (0.0-0.4); Lymphocytes Absolute Auto 1.2 X10*3/uL (1.2-4.9); Lymphocytes Percent Auto 22.5 % (20-40); Mean Corpuscular HGB Conc 34.4 g/dl (31.0-36.0); Mean Corpuscular Volume 87.1 fL (80.0-98.0); Mean Platelet Volume 10.8 fL (9.4-12.4); Monocytes Absolute Auto 0.5 X10*3/uL (0.1-1.2); Monocytes Percent Auto 9.6 % (2-11); Neutrophils Absolute Auto 3.4 x10*3/uL (2.0-8.3); Neutrophils Percent Auto 63.2 % (45-73); Platelet Count 178 X10*3/uL (160-400); Red Blood Count 4.97 X10*6/uL (4.60-5.80); Red Cell Distribution Width 13.2 % (11.0-16.0); White Blood Count 5.3 X10*3/uL (4.8-10.8)
[2024-06-25 13:54] LABS: Alanine Aminotransferase 26 U/L (0-40); Albumin Level 4.1 g/dL (3.5-5.0); Alkaline Phosphatase 71 U/L (39-117); Anion Gap 12 (12-20); Aspartate Amino Transferase 22 U/L (5-37); Bilirubin Total 1.4 mg/dL (0.0-1.0); Blood Urea Nitrogen 17 mg/dL (9-16); Calcium 8.9 mg/dL (8.4-10.2); Carbon Dioxide 25 mmol/L (22-29); Chloride 105 mmol/L (96-108); Cholesterol 184 mg/dL (<200); Estimated Glomerular Filt Rate > 60; Glucose Fasting 88 mg/dL (60-99); HDL Cholesterol 46 mg/dL (>40); LDL Cholesterol Calculated 115 mg/dL (<100); Sodium 138 mmol/L (135-145); Total Protein 7.6 g/dL (6.5-8.0); Triglycerides 119 mg/dL (<150)
[2024-06-25 14:05] LABS: PSA,Total (Free>4and<10) 1.78 ng/mL (0.00-4.00)
== END 2024-06-25 11:27 | disposition home or self-care (01) ==
LOC: HO.HMGCLDS 11:26
PROVIDERS: PCP Internal Medicine; Visit Provider Internal Medicine
DX: Z00.00 Encounter for general adult medical examination without abnormal findings (principal); N40.0 Benign prostatic hyperplasia without lower urinary tract symptoms; K21.9 Gastro-esophageal reflux disease without esophagitis; Z12.5 Encounter for screening for malignant neoplasm of prostate; Z13.6 Encounter for screening for cardiovascular disorders
CPT/HCPCS: 36415; 80053; 80061; 84153; 85025

== ENCOUNTER 2024-07-06 07:47 | Outpatient (AMB) | payer OTHER, SELFPAY ==
--- OUTSIDE RECORDS SUMMARY | 2024-07-06 07:51 | XMS_ITS | Data Portability ---
Author Organization [facility] [address] Address [address] [place] [address] Assessment No assessment recorded. Plan of Treatment Reminders Order Date Submit Date Provider Last Modified By Organization Details Last Modified Time Details Appointments None recorded. Lab None recorded. Referral None recorded. Procedures None recorded. Surgeries None recorded. Imaging None recorded. Medication Orders Bactrim DS 800 mg-160 mg tablet [id number], [address] [place], [address], 19:35:57 Patient TargetsNo targets recorded. Patient Instructions Encounter Date Encounter Id Patient Instructions Last Modified By Organization Details Last Modified Time 02/13/2023 [id number] You can take ove r the counter tylenol or ibuprofen per package instructions for the pain. See printed instructions. Follow-up with your doctor if no improvement in 1 week. Seek Emergency Medical evaluation for any worsening symptoms. [email or web address] Not available 02/13/2023 19:35:55 Reason for Referral None Reported. Problems Name Problem SNOMED Code Status Onset Date Resolution Date Notes Provider Name and Address Organization Details Recorded Time Acid reflux 670711129 Active 023 [facility] De [facility] 02/13/2023 18:55:52 Problem Notes None recorded. Medical Equipment None Reported. Allergies Allergen ID Allergen Name Allergen Category Reaction Reaction Severity Criticality Documentation Date Start Date Code Code System Note Provider Name and Address Organization Details Recorded Time 856378 amoxicill in medicatio n rash Not available Not available 02/13/2023 723 [facility] 18:54:22 285855 Product containin g penicilli n (product) medicatio n rash Not available Not available 02/13/2023 71809 8001 SNOMED ELISSA BOB pichardo PA - [facility] 18:54:31 Medications Name Sig Start Date [...] DateTime 3 3 185.42 cm 34.3 kg/m2 721867. 02 g 18 /min 97.3 [degF] 96 % 96 % 104 /min 113 mm[Hg] 77 mm[Hg] ELISSA ROJAS PA - [facility] 18:58:07 Social History Question Answer Notes LastModified by Organizat ion Details LastModified Time Tobacco Smoking Status Never Smoker ELISSA BOB pichardo PA - [facility] 02/13/2023 18:56:34 What Is Your Level Of Alcohol Consumption? None [email or web address] Information not available 02/13/2023 Do You Use Any Illicit Or Recreational Drugs? No [email or web address] Information not available 02/13/2023 Have You Recently Traveled Abroad? No [email or web address] Information not available 02/13/2023 Do You Or Have You Ever Used Any Other Forms Of Tobacco Or Nicotine? No [email or web address] Information not available 02/13/2023 Sex: Unknown Functional Status None recorded. Mental Status None recorded. Family History Relationship Description Onset Age of this Age Resolved Age Notes LastModified by Organization Details LastModified Time Father Malignant tumor of stomach [email or web address] Not available 2022 18:56:09 Sister Malignant tumor of colon [email or web address] Not available 2022 18:56:18 Medical History No medical history recorded. Immunizations Vaccine Type Date Status Note Provider Nam e and Address Organization Details Recorded Time Tdap 02/13/2023 completed BERNA ALLISON MD [address] [place], [address], PA - [facility] 02/13/2023 19:49:17 Past Encounters Encounter ID Performer Location Encounter Start Date Encounter Closed Date Diagnosis/Indication Diagnosis SNOMED-CT Code Diagnosis ICD10 Code Diagnosis Note [id number] [address] [place] [address] 02/07/2019 09:41:50 02/07/2019 10:10:13 [id number] [facility] [address] [address] [place] [address] 02/13/2023 17:46:59 02/13/2023 19:51:12 Puncture wound of sole of foot [id number] S91.331A Warm soaks for 20 minutes 2 [...] Fuente Member ID Guarantor Name 02/07/2019 1 [facility] [id number] Pineda Barnish [id number] Pineda Hoffmannish 02/13/2023 1 [facility] [id number] Pineda Barnish [id number] Pineda Reyes Notes Date Note Type Note Provider Name and Address Organization Details Recorded Time 02/13/2023 text/html 58 yo. male stepped on nail noon today with it penetrating his boot on his rt foot. He is here for evaluation and & a tetanus shot BERNA ALLISON MD [address] [place], [address], PA - [facility] 02/13/2023 19:52:35
--- OUTSIDE RECORDS SUMMARY | 2024-07-06 07:51 | XMS_ITS ---
Author Organization [facility] Address [address] [place] [address] Care Team Providers Care Senior Tax Analyst Name Role Phone Michelle Streeter MD Primary Care Provider Thompson Garcia Jr [phone] REASON FOR VISIT screening Encounters Encounter Location Date Provider Diagnosis [facility] Out[facility] [address] [place] [id number] 07/06/2024 Thompson Fernandez Jr Plan Of Treatment Next Appt Details Provider Name:Thompson gonzalez Jr, 07/06/2024 09:50:00 AM, [address] [place], [place], [phone], Provider Name:Thompson gonzalez Jr, 07/29/2024 03:10:00 PM, [address] [facility], [address], [place], [address], Progress Notes * MAYO JOSE JrDOB:1964 (59 yo M)Acc No.[id number]:07/06/2024 COLON WITH MAC Patient:?MAYO JOSE Jr Provider:?Thompson Fernandez MD :1965???Age:59 Y???Sex:Male Alvin e:07/06/2024 Address:[address] [place], [place] [phone] Pcp:Michelle Streeter MD Subjective: * Chief Complaints: * ???1. Screening. * Medical History:? Objective: * Vitals:? Assessment: Plan: * Treatment: * * The named appointment provid er may or may not be the originator of this progress note, and it is not deemed complete until electronically signed by the appointment provider. Sign off status: Pending * Provider:?Thompson Fernandez MD Date:?0 07/06/2024 Generated for Hill muhammad/Kane/Melodieitting on:?07/06/2024 07:50 AM EDT
--- OUTSIDE RECORDS SUMMARY | 2024-07-06 07:51 | XMS_ITS | Patient Health Record ---
Author Organization [facility] Address [address] [place] [address] Care Team Providers Care Shoe Puller Name Role Phone Michelle Streeter MD Primary Care Provider Thompson Garcia Jr Unavailable Allergies Allergen (clinical drug ingredient) Drug/Non Drug [...] day 05/26/2024 Active Pantoprazole Sodium 40 MG TAKE 1 TABLET BY MOUTH EVERY DAY FOR 90 DAYS ORAL for 90 Active Immunizations Vaccine Route Administration Date Status Comme nts Influenza Unknown 12/20/2017 Administered Influenza Unknown 02/21/2022 Refused Influenza Unknown 05/26/2024 Refused Social History Alcohol Screen Question Answer Notes Did you have a drink containing alcohol in the p ast year? No Points 0 Interpretation Negative Problems Problem Type SNOMED Code ICD Code Onset Dates Problem Status W/U Status Risk Notes Problem 458954463 Colon cancer screening (Z12.11) Active confirmed Problem 455627482 Gastroesophageal reflux disease, esophagitis presence not specified (K21.9) Active confirmed Vital Signs Temperature 96.9 degrees Fahrenheit 05/26/2024 Blood pressure diastolic 00 mm Hg 05/26/2024 Height 73 in 05/26/2024 Blood pressure systolic 000 mm Hg 05/26/2024 Weight 258 lb 8 oz lbs 05/26/2024 BMI 34.10 kg/m2 05/26/2024 Encounters Encounter Location Date Provider Diagnosis [facility] [address] [place] [address] [address] [place] [address] 05/26/2024 Thompson Fernandez Jr Gastroesophageal reflux disease, esophagitis presence not specified K21.9 and Colon cancer screening Z12.11 [facility] [address] [facility] [address] [place] [address] 07/05/2024 Thompson Fernandez Jr Assessments Encounter Date Diagnosis (ICD Code) Assessment [...] Provider Name:Thompson gonzalez Jr, 07/06/2024 09:50:00 AM, [address] [place] [address] , [place], [place], [phone], Provider Name:Thompson gonzalez Jr, 07/29/2024 03:10:00 PM, [address] [place] [address], [address], [place], [address], Insurance Providers Payer Name Payer Address Payer Phone Subscriber Number Group Number Insured Name Patient Relationship to Insured Coverage Start Date Coverage End Date [facility] [address] [facility] [place] [phone] [id number] MAYO JOSE Self - patient is the insured Medical (General) History Medical History History ICD Code Gastroesophageal reflux dise ase, EGD 12/19/17, no H. pylori or Juarez's esophagus. colon polyps, colonoscopy 07/08, tubular adenoma, five-year followup Right kidney oncocytoma BPH Hemorrhoids Surgical History Surgery Date(Month/Year) lumpectomy on chest
--- OUTSIDE RECORDS SUMMARY | 2024-07-06 07:51 | XMS_ITS | Clinical Summary ---
Author Organization [facility] Address [address] [place] [address] Care Team Providers Care Director Of Instruction Name Role Phone Conor Vargas MD Primary [...] this topic Zoster (Zostavax) Discontinued Care Teams Director Of Instruction Relationship Specialty Start Date End Date Conor Vargas MD [address] [place] [address] PCP - General 11/25/22
--- OUTSIDE RECORDS SUMMARY | 2024-07-06 07:51 | XMS_ITS ---
Author Name [facility] Organization Unknown Care Team Organization Name Specialty Phone Email Start Date End Jim langley [facility] 12/07/2020 12/07/2020
--- OUTSIDE RECORDS SUMMARY | 2024-07-06 07:51 | XMS_ITS ---
Author Organization [facility] Address [address] [place] [address] Care Team Providers Care Dipper Fish Name Role Phone Michelle Streeter MD Primary Care Provider UnavailThompson Royal Jr Unavailable Allergies Allergen (clinical drug ingredient) [...] 05/26/2024 Encounters Encounter Location Date Provider Diagnosis [facility] [address] [place] [address] 05/26/2024 Thompson Fernandez Jr Gastroesophageal reflux disease, [...] Year, Reason: Provider Name:Thompson gonzalez Jr, 07/06/2024 09:50:00 AM, [address] [place] [address], [phone], Provider Name:Thompson gonzalez Jr, 07/29/2024 03:10:00 PM, [address] [place] [address], [facility] [address], [place], [address], Progress Notes * MAYO JOSE JrDOB:1964 (59 yo M)Acc No.[id number]:05/26/2024 Progress Notes Patient:?MAYO JOSE Provider:?Thompson Fernandez MD :1965???Age:59 Y???Sex:Male Alvin e:05/26/2024 Address:[address] [place] [address], [facility] [id number] Pcp:Michelle Streeter MD Subjective: * Chief Complaints: [...] in the past year??No,?Points?0,?Interpretation?Negative.?Miscellaneous:?Marital status: . Occupation: highway truck driver. * Medications:?Taking Multivit acuña - Tablet 1 [...] Fernandez MD Date:?0 05/26/2024 Generated for Hill muhammad/Kane/eTransmitting on:?07/06/2024 07:50 AM EDT History and Physical Notes * HPI (History [...]
--- OUTSIDE RECORDS SUMMARY | 2024-07-06 07:51 | XMS_ITS ---
Author Organization [facility] Address [address] [place] [address] Care Team Providers Care Injection Molding Machine Setter Name Role Phone Michelle Streeter MD Primary Care Provider Thompson Garcia Jr REASON FOR VISIT procedure Encounters Encounter Location Date Provider Diagnosis [facility] [address] [place] [address] 07/05/2024 Thompson Fernandez Jr Plan Of Treatment Next Appt Details Provider Name:Thompson gonzalez Jr, 07/06/2024 09:50:00 AM, [address] [place] [address], [phone], Provider Name:Thompson gonzalez Jr, 07/29/2024 03:10:00 PM, [address], [address], [place], [address], Progress Notes * MAYO JOSE JrDOB:1964 (59 yo M)Acc No.[id number]:07/05/2024 Patient:?MAYO JOSE Jr :1965???Age:59 Y???Sex:Male Address:[address] [place] [address] [place], [address] * * Date:?
[2024-07-06 07:57] VITALS: BP 112/76; PULSE 83; RESP 20; TEMP 36.6; O2SAT 98; BMI 32.6
--- NOTE | 2024-07-06 07:57 | MHC.PC.OV ---
Vital Signs 07/06/24 07:57 Height 6 ft 1 in Weight 247 lb BMI 32.6 BP 112/76 Blood Pressure Location Lt brachial Position Sitting Respiration 20 Pulse 83 Pulse Source Pulse Oximeter Temp 97.8 F Temp Source Oral Pulse Oximetry (%) 98 Oxygen Delivery Method Room Air Intake Visit Reasons: Annual PE Intake Note: Pt is here today for PE. Allergies amoxicillin [AMOXICILLIN] Allergy (Unknown, Verified 07/06/24 07:58) RASH penicillin G Allergy (Unknown, Verified 07/06/24 07:58) Rash finasteride Adverse Reaction (Intermediate, Verified 07/06/24 07:58) LOSS GENITAL SENSATION tamsulosin Adverse Reaction (Intermediate, Verified 07/06/24 07:58) Drowsy Tobacco use date assessed: 07/06/24 Dental Screening Dental Screen Date: 06/03/24 HPI Annual PE HPI Details Pt presents for PE. [facility] Medical History (Updated 07/06/24 @ 08:56 by Michelle Streeter MD) Renal mass BPH (benign prostatic hyperplasia) Abnormal colonoscopy Surgical History History of esophagogastroduodenoscopy (EGD) H/O colonoscopy History of biopsy of kidney History of removal of cyst Family History Father Stomach cancer Mini stroke Smoker COPD (chronic obstructive pulmonary disease) Mother No problems noted. Maternal Grandmother Lung cancer Social History Household Members: Spouse Household Members Other:: exercise, Housing: House Alcohol intake: current Alcohol intake frequency: holidays/special occasions only Patient Tobacco Use Status: Never used Tobacco e-Cigarette/Vaping Use: Never Used service: No Current occupational status: employed Cognitive needs: No Hearing needs: No Vision needs: Yes Questionnaire PHQ-9 Over the last 2 weeks, how often have you been bothered by any of the following problems? 1. Little interest or pleasure in doing things: not at all 2. Feeling down, depressed, or hopeless: not at all 3. Trouble falling or staying asleep, or sleeping too much: not at all 4. Feeling tired or having little energy: not at all 5. Poor appetite or overeating: not at all 6. Feeling bad about yourself - or that you are a failure or have let yourself or your family down: not at all 7. Trouble concentrating on things, such as reading the newspaper or watching television: not at all 8. Moving or speaking so slowly that other people could have noticed. Or the opposite - being so fidgety or restless that you have been moving around a lot more than usual: not at all 9. Thoughts that you would be better off or of hurting yourself in some way: not at all Total score: 0 Depression Screening Interpretation: Negative Depression Screening Done: Yes 80491 - PHQ-9 Billing: Yes Source: Developed by Drs. Jose Mejia, Dara Cope, Raj Don and colleagues, with an educational kevin from [employer]. Thrive Questionnaire Date Thrive assessed: 07/06/24 I am a: Patient What is your living situation today?: I choose not to answer this question Within the past 12 months, did the food you bought not last and you didn't have the money to get more?: I choose not to answer this question Within the past 12 months, did you worry whether your food would run out before you got money to buy more?: I choose not to answer this question Do you have trouble paying for medicines?: No Do you have trouble getting transportation to medical appointments?: No Do you have trouble paying your heating and electricity bill?: No Do you have trouble taking care of your child, family member or friend?: No Do you have trouble with day-to-day activities such as bathing, preparing meals, shopping, managing finances, etc.?: No Are you currently unemployed and looking for a job?: No Are you interested in more education?: No Please select the resources that you would like help with: None THRIVE Score: 0 AUDIT C Alcohol Use Questionnaire (AUDIT-C) 2. How many drinks containing alcohol do you have on a typical day when you are drinking?: 1 or 2 3. How often do you have six or more drinks on one occasion?: Never Total Score: 0 LESLY-7 AMB Questionnaire LESLY-7 Date LESLY - 7 assessed: 07/06/24 Feeling nervous, anxious, or on edge: 0 = Not at all Not being able to stop or control worryin = Not at all Worrying too much about different things: 0 = Not at all Trouble relaxin = Not at all Being so restless that it is hard to sit still: 0 = Not at all Becoming easily annoyed or irritable: 0 = Not at all Feeling afraid as if something awful might happen: 0 = Not at all Total LESLY-7 score (0-4 normal; 5-9 mild; 10-14 moderate; 15-21 severe): 0 Source: Developed by Drs. Jose Mejia, Dara Cope, Raj Don and colleagues, with an educational kevin from [employer]. LESLY-7 Assessment Billing LESLY-7 Assessment Tool: LESLY-7 Assessment 88599 Review of Systems Const All systems reviewed & are unremarkable except as noted in HPI and below Reports no additional complaints Eyes Reports no additional complaints ENT Reports no additional complaints Card Reports no additional complaints Resp Reports no additional complaints GI Reports no additional complaints Reports no additional complaints Physical exam (Primary Care) Vital Signs: Last Vital Signs Temp 97.8 F 07/06/24 07:57 Pulse 83 07/06/24 07:57 Resp 20 07/06/24 07:57 BP 112/76 07/06/24 07:57 Pulse Ox 98 07/06/24 07:57 Oxygen Delivery Method Room Air 07/06/24 07:57 BMI result Body Mass Index 32.6 Tobacco/Smoking Status: Tobacco use Status Tobacco use date assessed 07/06/24 07/06/24 08:04 Patient Tobacco Use Status Never used Tobacco 07/06/24 08:04 e-Cigarette/Vaping Use Never Used 07/06/24 08:04 PHQ-9: PHQ-9 Score PHQ-9: Total score 0 07/06/24 08:04 Depression Screening Interpretation: Negative Thrive Assessment: Date of Thrive Assessment Date Thrive assessed 07/06/24 07/06/24 08:04 Const General: no acute distress HENMT Head: Yes normal to inspection Ears: hearing grossly normal bilaterally General nose exam: Normal external nose present Face and sinus: Yes normal facial exam Mouth: Normal oral and palatal mucosa present Throat: Yes posterior oropharynx normal Eyes General: appearance normal, both eyes and all related structures Neck Neck: Yes no lymphadenopathy and Yes supple Resp Effort & Inspection: normal respiratory effort Auscultation: clear to auscultation bilaterally Cardio Rhythm: regular rhythm Heart sounds: S1 normal heart sound present and S2 normal heart sound present GI Inspection: Yes normal to inspection Palpation (GI): Soft to palpation Percussion: Yes normal to percussion Auscultation: normal bowel sounds Coding Level of Care Code Est Pt Prev Care 40-64y(58688) Diagnoses Annual physical exam Z00.00 GERD (gastroesophageal reflux disease) K21.9 Oncocytoma determined by biopsy of kidney D30.00 BPH (benign prostatic hyperplasia) N40.0 Additional Codes LESLY-7 Assessment Billing - LESLY-7 Assessment Tool: LESLY-7 Assessment 14701 ([id number]) PHQ-9 - 81459 - PHQ-9 Billing: Yes ([id number]) Assessment & Plan Assessment & Plan (1) Annual physical exam: Code(s): Z00.00 - Encounter for general adult medical examination without abnormal findings Category: Medical Plan: well balanced diet regular physical activity weight loss discussed with the patient. He will have a colonoscopy today (2) GERD (gastroesophageal reflux disease): Comment: on PPI Code(s): K21.9 - Gastro-esophageal reflux disease without esophagitis Category: Medical Plan: Continue PPI (3) Oncocytoma determined by biopsy of kidney: Comment: 12/10 right lower pole 2.5 cm lesion, f/u urology, CT slightly increase in size 3.7 x3.1x3.2 cm 02/10 Code(s): D30.00 - Benign neoplasm of unspecified kidney Category: Medical Plan: Follow-up with urology (4) BPH (benign prostatic hyperplasia): Comment: Alfuzosin Code(s): N40.0 - Benign prostatic hyperplasia without lower urinary tract symptoms Category: Medical Plan: Continue finasteride and alfuzosin, follow-up with Urology Orders: Orders Complete Blood Count Auto Diff 1 Year Z00.00 - Encounter for general adult medical examination without abnormal findings AMB Urinalysis Automated 1 Year Z00.00 - Encounter for general adult medical examination without abnormal findings, Z13.9 - Encounter for screening, unspecified Comprehensive Met. Panel 1 Year Z00.00 - Encounter for general adult medical examination without abnormal findings Lipid Panel 1 Year Z00.00 - Encounter for general adult medical examination without abnormal findings PSA,Total (Free>4and<10) 1 Year Z00.00 - Encounter for general adult medical examination without abnormal findings UA w Microscopic 1 Year Z00.00 - Encounter for general adult medical examination without abnormal findings Medications: Refilled finasteride 5 mg PO DAILY 90 tabs 2RF
== END 2024-07-06 08:59 | disposition home or self-care (01) ==
LOC: HO.HMCC 07:47
PROVIDERS: PCP Internal Medicine; Visit Provider Internal Medicine
DX: Z00.00 Encounter for general adult medical examination without abnormal findings (principal); K21.9 Gastro-esophageal reflux disease without esophagitis; D30.00 Benign neoplasm of unspecified kidney; N40.0 Benign prostatic hyperplasia without lower urinary tract symptoms

== ENCOUNTER 2024-07-06 08:44 | Day surgery (SDC) | payer OTHER, SELFPAY ==
[2024-07-02 11:14] VITALS: BMI 34.1
--- NOTE | 2024-07-06 09:17 | P.CONAN_ITS ---
[facility] Active Problems Active Problems: All Active Problems URI (upper respiratory infection) (Acute) UTI (urinary tract infection) (Acute) External hemorrhoid (Acute) Hearing loss (Acute) Benign positional vertigo (Acute) GERD (gastroesophageal reflux disease) (Acute) Oncocytoma determined by biopsy of kidney (Acute) Hematuria (Acute) Annual physical exam (Acute) BPH (benign prostatic hyperplasia) (Acute) Abnormal colonoscopy (Acute) Past Medical History Medical History Renal mass BPH (benign prostatic hyperplasia) Abnormal colonoscopy Family History Family History Father Stomach cancer Mini stroke Smoker COPD (chronic obstructive pulmonary disease) Mother No problems noted. Maternal Grandmother Lung cancer Surgical History Surgical History History of esophagogastroduodenoscopy (EGD) H/O colonoscopy History of biopsy of kidney History of removal of cyst History of Problems with Anesthesia: No Social History Social History Household Members: Spouse Household Members Other:: exercise, Housing: House Alcohol intake: current Alcohol intake frequency: holidays/special occasions only Patient Tobacco Use Status: Never used Tobacco e-Cigarette/Vaping Use: Never Used service: No Current occupational status: employed Cognitive needs: No Hearing needs: No Vision needs: Yes Meds Allergies Allergy/AdvReac Type Severity Reaction Status Date / Time amoxicillin [AMOXICILLIN] Allergy Unknown RASH Verified 07/06/24 09:06 penicillin G Allergy Unknown Rash Verified 07/06/24 09:06 finasteride AdvReac Intermediate LOSS Verified 07/06/24 09:06 GENITAL SENSATION tamsulosin AdvReac Intermediate Drowsy Verified 07/06/24 09:06 Home Medications ?Medication ?Instructions ?Recorded ?Confirmed ?Last Taken ?Type pantoprazole 40 mg tablet,delayed 40 mg PO DAILY 02/24/20 07/06/24 01/09/22 History release Exam Height,Weight and Vital Signs: Height 6 ft 1 in Weight 117.254 kg Airway Mallampati Class: III TM Dist: >3cm Neck ROM: Full Loose/Missing/Broken Teeth: No Heart: RRR Lungs: CTA Assessment and Plan Assessment Anesthesia Assessment: Anesthesia Plan Discussed and Chart Reviewed Final Anesthetic Review History of Problems with Anesthesia: No NPO: Yes ASA Class: II Final Preanesthetic Review: Meds/Allgs Chart Reviewed, Consent Obtained/Reviewed and Anes Risks/Benef Reviewed Patient Risk: Low Procedure Risk: Low Anesthetic Plan Anesthetic Plan: MAC: Disposition: Standard PACU
[2024-07-06 09:33] VITALS: BMI 32.3
[2024-07-06 09:34] VITALS: BP 136/94; PULSE 76; RESP 16; TEMP 36.8; O2SAT 98
[2024-07-06] MEDS: Lactated Ringers 1,000 ML 100 ML IVCONT (09:45)
--- NOTE | 2024-07-06 09:45 | MHC.SHP ---
Pre-Procedural Eval Section A - 24 Hr Update-Section A only Date of Service: 07/06/24 Section B - Complete if H&P > 30 days Chief Complaint: Encounter for screening for malignant neoplasm of Details of Present Illness: see H&P no changes Relevant Family History (Specify if Yes): No Relevant Social History: None Present Medications: see Short Stay Collaborative assessment Medical History: No relevant PMH History of Previous Operations: No relevant previous surgery Allergies: Allergies Allergy/AdvReac Type Severity Reaction Status Date / Time amoxicillin [AMOXICILLIN] Allergy Unknown RASH Verified 07/06/24 09:06 penicillin G Allergy Unknown Rash Verified 07/06/24 09:06 finasteride AdvReac Intermediate LOSS Verified 07/06/24 09:06 GENITAL SENSATION tamsulosin AdvReac Intermediate Drowsy Verified 07/06/24 09:06 Review of Systems Sugical H&P ROS: Negative: Constitution, Cardiovascular, Respiratory, Neurological, Psychiatric, Hem-Onc, Allergic/Immunologic, Gastrointestinal, Genitourinary, Musculoskeletal, Integumentary, Endocrine and Eyes/Ears/Nose/Throat Exam Surgical H&P Exam: Normal: HEENT, Normal: Heart, Normal: Lungs, Normal: Extremities, Normal: Abdomen, Normal: Skin and Normal: Neurological Plan Diagnosis/Plan: Unchanged I have reviewed the history and physical and performed a pertinent physical examination on my patient. No changes have occurred unless specified. Time Spent With Patient Time: Total time managing care of this patient today ____ minutes.
[2024-07-06 10:25] VITALS: BP 104/72; PULSE 82; RESP 18; TEMP 36.8; O2SAT 98
[2024-07-06 10:40] VITALS: BP 129/86; PULSE 100; RESP 18; O2SAT 98
--- NOTE | 2024-07-06 11:25 | OP_ITS ---
DATE OF SERVICE: 07/06/2024 SURGEON: Thompson Fernandez MD INDICATIONS: Colon cancer screening and prior history of adenomatous colon polyps PREOPERATIVE DIAGNOSIS: POSTOPERATIVE DIAGNOSIS: PROCEDURE PERFORMED: Colonoscopy to the terminal ileum with biopsy. ESTIMATED BLOOD LOSS: COMPLICATIONS: ANESTHESIA: Monitored anesthesia care. ASSISTANTS: SPECIMENS: DESCRIPTION OF PROCEDURE: A history and physical was performed. The risks and benefits of the procedure were explained to the patient, and informed consent was obtained. The patient was placed in the left lateral decubitus position. The digital rectal exam was performed and was found to be normal. The Olympus pediatric video colonoscope was introduced into the rectum and advanced to the cecum without difficulty. The cecum was identified by transillumination, palpation, and identification of ileocecal valve. Examination was performed. The scope was removed. He tolerated the procedure well and was returned to recovery area in stable condition. FINDINGS: The terminal ileum was examined and appeared normal. The visualized colonic mucosa was within normal limits without evidence of masses or ulcers. A single polyp measuring less than 5 mm was identified at 80 cm from the anal verge. This was removed with a biopsy forceps, and no other polyps were identified. The quality of prep was good. Retroflexed examination showed small internal hemorrhoids. IMPRESSION: Colon polyp. RECOMMENDATION: Follow up the biopsy results. MD DOMONIQUE Fleming/ADDIE / [phone]
== END 2024-07-06 11:05 | disposition home or self-care (01) ==
PROVIDERS: PCP Internal Medicine; Visit Provider Internal Medicine Gastroenterology
PROC: 0DJD8ZZ Inspection of Lower Intestinal Tract, Via Natural or Artificial Opening Endoscopic (ICD-10-PCS; CPT 45378; principal; 2024-07-06 09:50)
DX: Z12.11 Encounter for screening for malignant neoplasm of colon (principal); Z86.0101 Personal history of adenomatous and serrated colon polyps; D12.4 Benign neoplasm of descending colon; K64.8 Other hemorrhoids; K21.9 Gastro-esophageal reflux disease without esophagitis; N40.0 Benign prostatic hyperplasia without lower urinary tract symptoms; D30.00 Benign neoplasm of unspecified kidney; N28.89 Other specified disorders of kidney and ureter; Z79.899 Other long term (current) drug therapy; Z88.0 Allergy status to penicillin; Z88.8 Allergy status to other drugs, medicaments and biological substances
CPT/HCPCS: 45380; 88305; 96127; J2003; J2704

== ENCOUNTER 2024-07-09 08:00 | Outpatient (AMB) | payer OTHER, SELFPAY ==
--- OUTSIDE RECORDS SUMMARY | 2024-07-09 08:03 | XMS_ITS | Patient Health Record ---
Author Organization [facility] Address [address] [place] [address] Care Team Providers Care Visitor Service Assistant Name Role Phone Michelle Streeter MD Primary Care Provider Thompson Garcia Jr Unavailable Allergies Allergen (clinical drug ingredient) Drug/Non Drug Allergy documented on EMR Reaction Allergy Type Onset Date Status amoxicillin Amoxicillin Unknown Drug Allergy Act deanna Results Component Value Reference Range Notes Pathology Reviewed date:07/08/2024 08:02:36 AM Interpretation: Performing Lab:[facility], [address] [place] [address] Notes/Report: Name: Pineda Reyes Jr Age/Sex: 59/M : 1965 Unit#: [id number] Attend Dr: Thompson Fernandez MD Re07/06/24 Status : [facility] Location: [facility] Disch: SPEC : [id number] RECD : 07/06/24 STATUS: MARCO VILLALTA NUM: [id number] TERRI: 07/06/24-[address]: Thompson Fernandez MD ENTERED: 07/06/24 14 SP TYPE: Surgical OTHR DR: Michelle Streeter MD ORDERED: HE Stain/3, Gross Micro L4 Diagnosis Colon, 80 cm, polype ctomy: Fragments of tubular adenoma; negative for high-grade dysplasia or carcinoma. Clinical History Pre-Op Dx: Encounter for screening for malignant neoplasm of colon Post-Op Dx: Colon polyp Microscopic Description Microscopic sections reviewed. Material Received Polyp at 80 Gross Description Received in formalin labeled ?polyp at 80 are 2 saldaña-pink papular tissue fragments measuring 0.3 and 0.4 cm, subm itted toto in a cassette labeled A. CEDS Copies To: Michelle Streeter MD [address] [id number] Thompson Fernandez MD [facility] [address] [place], [place] [phone] Signed (si gnature on file) Xavier Barbosa MD 07/07/24 1514 END OF REPORT Reason For Referral No Information Medications Medication [...] Problem Status W/U Status Risk Notes Problem 359350751 Colon cancer screening (Z12.11) Active confirmed Problem 559572841 Gastroesophageal reflux disease, esophagitis presence not specified (K21.9) Active confirmed Vital Signs Temperature 96.9 degrees Fahrenheit 05/26/2024 Blood pressure diastolic 00 mm Hg 05/26/2024 Height 73 in 05/26/2024 Blood pressure systolic 000 mm Hg 05/26/2024 Weight 258 lb 8 oz lbs 05/26/2024 BMI 34.10 kg/m2 05/26/2024 Encounters Encounter Location Date Provider Diagnosis [facility] [address] [place] [phone] 07/06/2024 Thompson Fernandez Jr Colon cancer screening Z12.11 ; Personal history of adenomatous and serrated colon polyps Z86.0101 and Colon polyps K63.5 [facility] [address] [place] [phone] 05/26/2024 Thompson Fernandez Jr Gastroesophageal reflux disease, esophagitis presence not specified K21.9 and Colon cancer screening Z12.11 [facility] [address] [place] [phone] 07/05/2024 Thompson Fernandez Jr [facility] [address] [place] [phone] 07/08/2024 Thompson Fernandez Assessments Encounter Date Diagnosis (ICD Code) Assessment Notes Treatment Notes Treatment Clinical Notes Section Notes 07/06/2024 Colon cancer screening (ICD-10 - Z12.11) 07/06/2024 Personal history of adenomatous and serrated colon polyps (ICD-10 - Z86.0101) 05/26/2024 Colon cancer screening (ICD-10 - Z12.11) [...] He understands these and agrees to proceed. 07/06/2024 Colon polyps (ICD-10 - K63.5) Plan Of Treatment Future Test Test Name Order Date UPPER GI ENDOSCOPY 09/30/2013 COLONOSCOPY 09/30/2013 UPPER GI ENDOSCOPY 11/06/2017 COLONOSCOPY 05/26/2024 Insurance Providers Payer Name Payer Address Payer Phone Subscriber Number Group Number Insured Name Patient Relationship to Insured Coverage Start Date Coverage End Date [facility] [address] [place] [phone] [id number] PINEDA REYES Self - patient is the insured Medical (General) History Medical History History ICD Code Gastroesophageal reflux dise ase, EGD 12/19/17, no H. pylori or Juarez's esophagus. colon polyps, colonoscopy 07/08, tubular adenoma, five-year followup Right kidney oncocytoma BPH Hemorrhoids Surgical History Surgery Date(Month/Year) lumpectomy on chest
--- OUTSIDE RECORDS SUMMARY | 2024-07-09 08:03 | XMS_ITS ---
Author Organization [facility] Address [address] [place] [address] Care Team Providers Care Payable Processor Name Role Phone Michelle Streeter MD Primary Care Provider Thompson Garcia Jr REASON FOR VISIT screening Encounters Encounter Location Date Provider Diagnosis [facility] Outpatient [address] [place] [phone] 07/06/2024 Thompson Fernandez Jr Colon cancer screening [...] Information Progress Notes * MAYO JOSE JrDOB:1964 (59 yo M)Acc No.[id number]:07/06/2024 COLON WITH MAC Patient:?MAYO JOSE Jr Provider:?Thompson Fernandez MD :1965???Age:59 Y???Sex:Male Alvin e:07/06/2024 Address:[address] [place], [place] [phone] Pcp:Michelle Streeter MD Subjective: * Chief Complaints: * ???1. Screening. * Medical History:? Objective: * Vitals:? Assessment: * Assessment: 1.?Colon cancer screening - Z12.11 (Primary)???2.?Personal history of adenomatous and serrated colon polyps - Z86.0101???3.?Colon polyps - K63.5??? Plan: * Treatment: * Procedure Codes:?95412 COLON OSCOPY AND BIOPSY, 0529F INTRVL 3+YRS PTS CLNSCP DOCD * * The named appointment provid er may or may not be the originator of this progress note, and it is not deemed complete until electronically signed by the appointment provider. Sign off status: Pending * Provider:?Thompson Fernandez MD Date:?0 07/06/2024 Generated for Hill muhammad/Kane/Melodieitting on:?07/09/2024 08:02 AM EDT
--- OUTSIDE RECORDS SUMMARY | 2024-07-09 08:03 | XMS_ITS ---
Author Organization [facility] Address [address] [place] [address] Care Team Providers Care Cash Accounting Clerk Name Role Phone Michelle Streeter MD Primary Care Provider Thompson Garcia Jr REASON FOR VISIT procedure Encounters Encounter Location Date Provider Diagnosis [facility] [address] [place] [phone] 07/05/2024 Thompson Fernandez Jr Plan Of Treatment No Information Progress Notes * MAYO JOSE JrDOB:1964 (59 yo M)Acc No.[id number]:07/05/2024 Patient:?MAYO JOSE Jr :1965???Age:59 Y???Sex:Male Address:[address] [place] [address], [address] * true * Date:? Generated for Printi sabina/Kane/eTransmitting on:?07/09/2024 08:02 AM EDT
--- OUTSIDE RECORDS SUMMARY | 2024-07-09 08:03 | XMS_ITS | Data Portability ---
Author Organization [facility] [address] Address [address] [place] [address] Assessment No assessment recorded. Plan of Treatment Reminders Order Date Submit Date Provider Last Modified By Organization Details Last Modified Time Details Appointments None recorded. Lab None recorded. Referral None recorded. Procedures None recorded. Surgeries None recorded. Imaging None recorded. Medication Orders Bactrim DS 800 mg-160 mg tablet [id number], [address] [place], [address], 19:35:57 Patient TargetsNo targets recorded. Patient Instructions Encounter Date Encounter Id Patient Instructions Last Modified By Organization Details Last Modified Time 02/13/2023 [id number] You can take ove r the counter tylenol or ibuprofen per package instructions for the pain. See printed instructions. Follow-up with your doctor if no improvement in 1 week. Seek Emergency Medical evaluation for any worsening symptoms. [email or web address] Not available 02/13/2023 19:35:55 Reason for Referral None Reported. Problems Name Problem SNOMED Code Status Onset Date Resolution Date Notes Provider Name and Address Organization Details Recorded Time Acid reflux 607103800 Active 023 [facility] 02/13/2023 18:55:52 Problem Notes None recorded. Medical Equipment None Reported. Allergies Allergen ID Allergen Name Allergen Category Reaction Reaction Severity Criticality Documentation Date Start Date Code Code System Note Provider Name and Address Organization Details Recorded Time 867064 amoxicill in medicatio n rash Not available Not available 02/13/2023 723 [facility] 18:54:22 492551 Product containin g penicilli n (product) medicatio n rash Not available Not available 02/13/2023 89620 8001 SNOMED ELISSA BOB pichardo PA - [facility] 18:54:31 Medications Name Sig Start Date [...] DateTime 3 3 185.42 cm 34.3 kg/m2 622085. 02 g 18 /min 97.3 [degF] 96 % 96 % 104 /min 113 mm[Hg] 77 mm[Hg] ELISSA ROJAS PA - [facility] 18:58:07 Social History Question Answer Notes LastModified by Organizat ion Details LastModified Time Tobacco Smoking Status Never Smoker ELISSA BOB pichardo [place] - [facility] 02/13/2023 18:56:34 What Is Your Level Of Alcohol Consumption? None [email or web address] Information not available 02/13/2023 Do You Use Any Illicit Or Recreational Drugs? No Information not available 02/13/2023 Have You Recently Traveled Abroad? No Information not available 02/13/2023 Do You Or Have You Ever Used Any Other Forms Of Tobacco Or Nicotine? No [email or web address] Information not available 02/13/2023 Sex: Unknown Functional Status None recorded. Mental Status None recorded. Family History Relationship Description Onset Age of this Age Resolved Age Notes LastModified by Organization Details LastModified Time Father Malignant tumor of stomach [email or web address] Not available 2022 18:56:09 Sister Malignant tumor of colon [email or web address] Not available 2022 18:56:18 Medical History No medical history recorded. Immunizations Vaccine Type Date Status Note Provider Nam e and Address Organization Details Recorded Time Tdap 02/13/2023 completed BERNA ALLISON MD [address] [place], [address], [place] - [facility] 02/13/2023 19:49:17 Past Encounters Encounter ID Performer Location Encounter Start Date Encounter Closed Date Diagnosis/Indication Diagnosis SNOMED-CT Code Diagnosis ICD10 Code Diagnosis Note [id number] [address] [place] [address] 02/07/2019 09:41:50 02/07/2019 10:10:13 [id number] [facility]ISON [facility] [address] [address] [place] [address] 02/13/2023 17:46:59 02/13/2023 19:51:12 Puncture wound of sole of foot [id number] S91.331A Warm soaks for 20 minutes 2 [...] ID Guarantor Name 02/07/2019 1 [facility] [id number] Pineda Barnish [id number] Pineda Hoffmannish 02/13/2023 1 [facility] [id number] Pineda Barnish [id number] Pineda Reyes Notes Date Note Type Note Provider Name and Address Organization Details Recorded Time 02/13/2023 text/html 58 yo. male stepped on nail noon today with it penetrating his boot on his rt foot. He is here for evaluation and & a tetanus shot BERNA ALLISON MD [address] [place], [address], [place] - [facility] 02/13/2023 19:52:35
--- OUTSIDE RECORDS SUMMARY | 2024-07-09 08:03 | XMS_ITS ---
Author Organization [facility] Address [address] [place] [address] Care Team Providers Care Press Pipe Inspector Name Role Phone Michelle Streeter MD Primary Care Provider Thompson Garcia Jr REASON FOR VISIT Pathology Encounters Encounter Location Date Provider Diagnosis [facility] [address] [place] [phone] 07/08/2024 Thompson Fernandez Jr Plan Of Treatment No Information Progress Notes * MAYO JOSE JrDOB:1964 (59 yo M)Acc No.[id number]:07/08/2024 Patient:?MAYO JOSE Jr :1965???Age:59 Y???Sex:Male Address:[address] [place] [address], [address] * true * Date:? Generated for Printi sabina/Kane/eTransmitting on:?07/09/2024 08:02 AM EDT
--- OUTSIDE RECORDS SUMMARY | 2024-07-09 08:03 | XMS_ITS | Clinical Summary ---
Author Organization [facility] Address [address] [place] [address] Care Team Providers Care Harm Reduction Worker Name Role Phone Conor Vargas MD Primary [...] this topic Zoster (Zostavax) Discontinued Care Teams Harm Reduction Worker Relationship Specialty Start Date End Date Conor Vargas MD [address] [place] [address] PCP - General 11/25/22
[2024-07-09 08:05] VITALS: BP 118/74; PULSE 108; O2SAT 96
--- NOTE | 2024-07-09 08:05 | AM.OFFWIN_ITS ---
Intake Vital Signs 07/09/24 08:05 Weight 257 lb BP 118/74 Blood Pressure Location Rt brachial Position Sitting Pulse 108 H Pulse Source Pulse Oximeter Pulse Oximetry (%) 96 Oxygen Delivery Method Room Air Intake Visit Reasons: EP ?UTI Intake Note: Patient here for frequent urination, full bladder feeling, burning sensation on urination that started last night. Patient Tobacco Use Status: Never used Tobacco Allergies amoxicillin [AMOXICILLIN] Allergy (Unknown, Verified 07/09/24 08:13) RASH penicillin G Allergy (Unknown, Verified 07/09/24 08:13) Rash finasteride Adverse Reaction (Intermediate, Verified 07/09/24 08:13) LOSS GENITAL SENSATION tamsulosin Adverse Reaction (Intermediate, Verified 07/09/24 08:13) Drowsy HPI HPI Comments History of Present Illness Details This is a 59-year-old male with past medical history significant for benign prostatic hyperplasia who presented to the walk-in clinic with urinary symptoms. Patient states he started to develop dysuria, urinary frequency, and urinary urgency last night. He states he had a urinary tract infection about 1 month ago, which presented with similar symptoms. He denies any fevers or chills. He denies any flank or back pain. He denies any abdominal pain or nausea/vomiting/diarrhea. He denies any hematuria. He did recently have a colonoscopy on 07/06/2024 but he did not have a catheter placed. He is scheduled to see a new urologist in August of 2024. [facility] Medical History Renal mass BPH (benign prostatic hyperplasia) Abnormal colonoscopy Surgical History History of esophagogastroduodenoscopy (EGD) H/O colonoscopy History of biopsy of kidney History of removal of cyst Family History Father Stomach cancer Mini stroke Smoker COPD (chronic obstructive pulmonary disease) Mother No problems noted. Maternal Grandmother Lung cancer Social History Household Members: Spouse Household Members Other:: exercise, Housing: House Alcohol intake: current Alcohol intake frequency: holidays/special occasions only Patient Tobacco Use Status: Never used Tobacco e-Cigarette/Vaping Use: Never Used service: No Current occupational status: employed Cognitive needs: No Hearing needs: No Vision needs: Yes Review of Systems Const All systems reviewed & are unremarkable except as noted in HPI and below Reports no additional complaints Eyes Reports no additional complaints ENT Reports no additional complaints Card Reports no additional complaints Resp Reports no additional complaints GI Reports no additional complaints Reports no additional complaints Musc Reports no additional complaints Skin/Breast Reports system reviewed and no additional complaints, except as documented Neuro Reports no additional complaints Psych Reports no additional complaints Endo Reports no additional complaints David/Lymph Reports no additional complaints Aller/Immun Reports no additional complaints Physical Exam Vital Signs: Last Vital Signs Pulse 108 H 07/09/24 08:05 BP 118/74 07/09/24 08:05 Pulse Ox 96 07/09/24 08:05 Oxygen Delivery Method Room Air 07/09/24 08:05 Const Other: Vital signs reviewed. Constitutional: Non-toxic appearing. No acute distress. Well-developed and well-nourished. HEENT: Normocephalic and atraumatic. Skin: Warm and dry. No rashes or lesions noted. Neck: Full and painless range of motion. No cervical lymphadenopathy. Cardio:MIld tachycardia with regular rhythm. No murmurs, gallops, or rubs. No lower extremity edema. No JVD. Pulmonary: No respiratory distress. No accessory muscle usage. Clear to auscultation bilaterally without wheezing, crackles, or rhonchi. Gastrointestinal: Soft, nontender, and nondistended in all 4 quadrants. Normoactive bowel sounds in all 4 quadrants. Genitourinary: No CVA tenderness. Musculoskeletal: Normal range of motion in joints throughout the body. No deformity or other signs of injury. Neuro: Alert and oriented x4. Cranial nerves 2-12 grossly intact. No focal deficits appreciated. Psych: Normal mood and affect. Assessment & Plan Assessment & Plan (1) UTI (urinary tract infection): Code(s): N39.0 - Urinary tract infection, site not specified Qualifiers: Urinary tract infection type: acute cystitis Hematuria presence: without hematuria Qualified Code(s): N30.00 - Acute cystitis without hematuria Plan This is a 59-year-old male with past medical history significant for benign prostatic hyperplasia who presented to the walk-in clinic with urinary symptoms. His urinalysis showed 3+ leukocyte esterase. He has no CVA tenderness or systemic symptoms to suggest acute pyelonephritis. History and physical most consistent with an acute uncomplicated cystitis. His prior urine culture from 06/09/2024 was reviewed and grew pansensitive E coli. Patient started on p.o. trimethoprim/sulfamethoxazole 160/800 mg twice daily x7 days. Patient was advised to follow-up here or proceed directly to the emergency room if he were to develop fever/chills, nausea/vomiting, flank/back pain, or worsening/persistent symptoms. Patient verbalizes understanding and they are in agreement with the plan. Medications: New sulfamethoxazole-trimethoprim 800-160 mg 1 tab PO BID 14 tabs 0RF Coding Level of Care Code Est Pt Level 3 (87068) Diagnoses Acute cystitis without hematuria N30.00 Urinary tract infection type: acute cystitis Hematuria presence: without hematuria
== END 2024-07-09 08:42 | disposition home or self-care (01) ==
PROVIDERS: PCP Internal Medicine; Visit Provider Physician Assistant Medical
DX: Z13.9 Encounter for screening, unspecified (principal); N30.00 Acute cystitis without hematuria

== ENCOUNTER 2024-07-09 08:00 | Outpatient (REF) | payer OTHER, SELFPAY ==
[2024-07-09 11:01] LABS: Appearance Urine Turbid; Color Urine Yellow; Glucose Urine UA Negative (Negative); Leukocyte Esterase Urine Large (3+) (Negative); Nitrite Urine Negative (Negative); PH 5.5 (5.0-9.0); Specific Gravity - Urine 1.015 (1.005-1.025); UMIC TRIGGER UA YES; Urine Blood Large (3+) (Negative); Urine Ketones Negative (Negative); Urine Protein 30 (1+) mg/dL (Neg-Trace)
[2024-07-09 11:08] LABS: Bacteria Urine None Seen (None Seen); Hyaline Casts Urine 0-2 /LPF (0-2); RBC Urine >20 /HPF (0-2); Squamous Epithelial Cell Urine 0-2 /HPF (0-2); WBC Urine >50 /HPF (0-5)
== END 2024-07-09 08:01 | disposition home or self-care (01) ==
LOC: HO.HMGCLNP 08:00
PROVIDERS: PCP Internal Medicine; Visit Provider Physician Assistant Medical
DX: N30.00 Acute cystitis without hematuria (principal)
CPT/HCPCS: 81001; 81003; 87086; 87088; 87186

== ENCOUNTER 2025-04-07 12:27 | Outpatient (AMB) | payer OTHER, SELFPAY ==
--- OUTSIDE RECORDS SUMMARY | 2024-07-06 04:50 | XMS_ITS ---
Author Organization [facility] Address [address] [place] [address] Care Team Providers Care Compliance Counsel Name Role Phone Michelle Streeter MD Primary Care Provider Thompson Garcia Jr [phone] REASON FOR VISIT screening Encounters Encounter Location Date Provider Diagnosis [facility] Outpatient [address] [place] [id number] 07/06/2024 Thompson Fernandez Jr Colon cancer screening Z12.11 ; Personal history of adenomatous and serrated colon polyps Z86.0101 and Colon polyps K63.5 Assessments Encounter Date Diagnosis (ICD Code) Assessment Notes Treatment Notes Treatment Clinical Notes Section Notes 07/06/2024 Colon cancer screening (ICD-10 - Z12.11) 07/06/2024 Personal history of adenomatous and serrated colon polyps (ICD-10 - Z86.0101) 07/06/2024 Colon polyps (ICD-10 - K63.5) Plan Of Treatment No Information Progress Notes * MAYO JOSE JrDOB:1964 (60 yo M)Acc No.[id number]:07/06/2024 COLON WITH MAC Patient: Alexei ANGUIANOMAYO Jr Provider: Alexei Fernandez MD :1965 A ge:59 Y S ex:Male Date:07/06/2024 Address:[address] [place], [place] [phone] Pcp:Michelle Streeter MD Subjective: * Chief Complaints: * S creening Assessment: * Assessment: 1. C olon cancer screening - Z12.11 (Primary) 2 . P ersonal history of adenomatous and serrated colon polyps - Z86.0101 3 . C olon polyps - K63.5 ? Plan: * Procedure Codes: 4 5380 COLONOSCOPY AND [id number] INTRVL 3+YRS PTS CLNSCP DOCD Billing Information: * Procedure Codes: 20170 COLONOSCOPY AND BIOPSY. 0529F INTRVL 3+YRS PTS CLNSCP DOCD. * The named appointment provid er may or may not be the originator of this progress note, and it is not deemed complete until electronically signed by the appointment provider. Sign off status: Pending * Provider: Alexei Fernandez MD Date: 0 07/06/2024 Generated for Hill muhammad/Kane/Juany on: 1 06/08/2024 04:16 PM EST
--- OUTSIDE RECORDS SUMMARY | 2024-07-29 10:10 | XMS_ITS ---
Author Organization [facility] Address [address] [place] [address] Care Team Providers Care Adz Worker Name Role Phone Michelle Streeter MD Primary Care Provider Thompson Garcia Jr [phone] REASON FOR VISIT colon recall Encounters Encounter Location Date Provider Diagnosis [facility] [address] [place] [phone] 07/29/2024 Thompson Fernandez Jr Plan Of Treatment No Information Progress Notes * REBECA MAYO NgDOB:1964 (60 yo M)Acc No.[id number]:07/29/2024 Progress Notes Patient: Alexei ANGUIANO MAYO Ng Provider: Alexei Fernandez MD :1965 A ge:59 Y S ex:Male Date:07/29/2024 Address:[address] [place], [place] [phone] Pcp:Michelle Streeter MD Subjective: * Chief Complaints: * C olon recall * The named appointment provid er may or may not be the originator of this progress note, and it is not deemed complete until electronically signed by the appointment provider. Sign off status: Pending * Provider: Alexei Fernandez MD Date: 0 07/29/2024 Generated for Janai ng/Fajosiahg/eTransmitting on: 1 06/08/2024 04:15 PM EST
[2025-04-07 12:28] VITALS: BP 130/80; PULSE 80; RESP 17; O2SAT 98; BMI 35.4
--- NOTE | 2025-04-07 12:28 | A.OFFPC_ITS ---
Vital Signs 04/07/25 12:28 Height 6 ft 1 in Weight 268 lb BMI 35.4 BP 130/80 Blood Pressure Location Lt brachial Position Sitting Respiration 17 Pulse 80 Pulse Source Pulse Oximeter Pulse Oximetry (%) 98 Oxygen Delivery Method Room Air Intake Visit Reasons: discuss weight loss, Intake Note: Pt is here today for a follow up visit to discuss weight loss problem. Allergies amoxicillin (AMOXICILLIN) Allergy (Unknown, Verified 04/07/25 12:30) RASH penicillin G Allergy (Unknown, Verified 04/07/25 12:30) Rash finasteride Adverse Reaction (Intermediate, Verified 04/07/25 12:30) LOSS GENITAL SENSATION tamsulosin Adverse Reaction (Intermediate, Verified 04/07/25 12:30) Drowsy Medication List - Last Reconciled 04/07/25 by Michelle Streeter MD alfuzosin ER 10 mg PO BEDTIME 90 days finasteride 5 mg PO DAILY pantoprazole 40 mg PO DAILY Zepbound (tirzepatide (weight loss)) 2.5 mg (0.5 mL) subcut QWEEK NS Tobacco use date assessed: 04/07/25 Dental Screening Dental Screen Date: 06/03/24 HPI discuss weight loss, HPI Details Pt presents to discuss weight management. Pt has been decreasing caloric intake increasing physical activity for over 6 months in order to lose weight unsuccessfully. Patient is interested in taking GLP 1 agonist to facilitate weight loss. [facility] Medical History Renal mass BPH (benign prostatic hyperplasia) Abnormal colonoscopy Surgical History History of esophagogastroduodenoscopy (EGD) H/O colonoscopy History of biopsy of kidney History of removal of cyst Family History Father Stomach cancer Mini stroke Smoker COPD (chronic obstructive pulmonary disease) Mother No problems noted. Maternal Grandmother Lung cancer Social History Household Members: Spouse Household Members Other:: exercise, Housing: House Alcohol intake: current Alcohol intake frequency: holidays/special occasions only Patient Tobacco Use Status: Never used Tobacco e-Cigarette/Vaping Use: Never Used service: No Current occupational status: employed Cognitive needs: No Hearing needs: No Vision needs: Yes Questionnaire PHQ-9 Over the last 2 weeks, how often have you been bothered by any of the following problems? 1. Little interest or pleasure in doing things: not at all 2. Feeling down, depressed, or hopeless: not at all 3. Trouble falling or staying asleep, or sleeping too much: not at all 4. Feeling tired or having little energy: several days 5. Poor appetite or overeating: not at all 6. Feeling bad about yourself - or that you are a failure or have let yourself or your family down: not at all 7. Trouble concentrating on things, such as reading the newspaper or watching television: not at all 8. Moving or speaking so slowly that other people could have noticed. Or the opposite - being so fidgety or restless that you have been moving around a lot more than usual: not at all 9. Thoughts that you would be better off or of hurting yourself in some way: not at all Total score: 1 Depression Screening Interpretation: Negative Depression Screening Done: Yes 42273 - PHQ-9 Billing: Yes Source: Developed by Drs. Jose Mejia, Dara Cope, Raj Don and colleagues, with an educational kevin from [employer]. Thrive Questionnaire Date Thrive assessed: 06/09/24 I am a: Patient What is your living situation today?: I choose not to answer this question Within the past 12 months, did the food you bought not last and you didn't have the money to get more?: I choose not to answer this question Within the past 12 months, did you worry whether your food would run out before you got money to buy more?: I choose not to answer this question Do you have trouble paying for medicines?: No Do you have trouble getting transportation to medical appointments?: No Do you have trouble paying your heating and electricity bill?: No Do you have trouble taking care of your child, family member or friend?: No Do you have trouble with day-to-day activities such as bathing, preparing meals, shopping, managing finances, etc.?: No Are you currently unemployed and looking for a job?: No Are you interested in more education?: No Please select the resources that you would like help with: None THRIVE Score: 0 LESLY-7 AMB Questionnaire LESLY-7 Date LESLY - 7 assessed: 07/06/24 Source: Developed by Drs. Jose Mejia, Dara Cope, Raj Don and colleagues, with an educational kevin from [employer]. Review of Systems Const All systems reviewed & are unremarkable except as noted in HPI and below ENT Reports no additional complaints Card Reports no additional complaints Resp Reports no additional complaints GI Reports no additional complaints Reports no additional complaints Physical exam (Primary Care) Vital Signs: Last Vital Signs Pulse 80 04/07/25 12:28 Resp 17 04/07/25 12:28 BP 130/80 04/07/25 12:28 Pulse Ox 98 04/07/25 12:28 Oxygen Delivery Method Room Air 04/07/25 12:28 BMI result Body Mass Index 35.4 Tobacco/Smoking Status: Tobacco use Status Tobacco use date assessed 04/07/25 04/07/25 12:33 Patient Tobacco Use Status Never used Tobacco 04/07/25 12:33 e-Cigarette/Vaping Use Never Used 04/07/25 12:33 PHQ-9: PHQ-9 Score PHQ-9: Total score 1 04/07/25 12:33 Depression Screening Interpretation: Negative Thrive Assessment: Date of Thrive Assessment Date Thrive assessed 06/09/24 04/07/25 12:33 Const General: no acute distress HENMT Head: Yes normal to inspection Eyes General: appearance normal, both eyes and all related structures Resp Effort & Inspection: normal respiratory effort Auscultation: clear to auscultation bilaterally Cardio Rhythm: regular rhythm Heart sounds: S1 normal heart sound present and S2 normal heart sound present GI Inspection: Yes normal to inspection Palpation (GI): Soft to palpation Coding Level of Care Code Est Pt Level 3 (71560) Diagnoses Overweight E66.3 BPH (benign prostatic hyperplasia) N40.0 Additional Codes PHQ-9 - 35842 - PHQ-9 Billing: Yes ([id number]) Assessment & Plan Assessment & Plan (1) Overweight: Comment: BMI 35.4 03/2025 Code(s): E66.3 - Overweight Category: Medical Plan: Decreasing caloric intake increasing physical activity discussed with the patient. Zepbound 2.5 mg weekly for the 1st month will be started. Side effects discussed with the patient the dose can be increased next month depending on the patient's side effects and response. (2) BPH (benign prostatic hyperplasia): Comment: Alfuzosin Code(s): N40.0 - Benign prostatic hyperplasia without lower urinary tract symptoms Category: Medical Plan: Continue alfuzosin Orders: Orders UA w Microscopic Today R31.9 - Hematuria, unspecified Medications: New Zepbound (tirzepatide (weight loss)) 2.5 mg (0.5 mL) subcut QWEEK 2 mL 0RF NS Refilled alfuzosin ER Take before bedtime 10 mg PO BEDTIME 90 tabs 3RF 90 days N40.0 - Benign prostatic hyperplasia without lower urinary tract symptoms, R35.1 - Nocturia Discontinued finasteride Discontinued Reason: Doctor's Order 5 mg PO DAILY 90 tabs 2RF
--- OUTSIDE RECORDS SUMMARY | 2025-04-07 16:15 | XMS_ITS | Patient Health Record ---
[facility] Address [address] [place] [address] Care Team Providers Care Lining Parts Sewer Name Role Phone Moy EGAN, [phone] [facility] vider Unavailable Black, Aniyah Unavailable [phone] Allergies Allergen (clinical drug ingredient) Drug/Non Drug Allergy documented on EMR Reaction Allergy Type Onset Date Status amoxicillin Amoxicillin Unknown Drug Allergy Act deanna Penicillin Rash Drug Allergy Active Reason For Referral No Information Medications Medication SIG (Take, Route, Frequency, Duration) Notes Start Date End Date Status Bactrim DS 800-160 MG 1 tablet Orally ev marv 12 hrs; Duration: 07 days 07/23/2016 Not-Mary Alice saucedo Social History Tobacco use other than smoking: Question Answer Notes Are you an other tobacco user? No Problems No Known Problems Plan Of Treatment Pending Test Test Name Order Date [id number] NAIL, 1-5 06/29/2013 [id number] NAIL, 1-5 07/29/2013 [id number] Destruction, 1-14 06/29/2013 [id number] Destruction, 15 OR MORE 07/29 [id number] SKIN/TISSUE 07/29/2016 35092 I&D ABSCESS- SIMPLE,SINGLE 017 Insurance Providers Payer Name Payer Address Payer Phone Subscriber Number Group Number Insured Name Patient Relationship to Insured Coverage Start Date Coverage End Date [facility] [address] [place] [address] [id number] Pineda Reyes Self - patient is the insured Medical (General) History Medical History History ICD Code Chicken pox Surgical History Surgery Date(Month/Year) lumpectomy
--- OUTSIDE RECORDS SUMMARY | 2025-04-07 16:16 | XMS_ITS ---
Author Name [facility] Organization Unknown Care Team Organization Name Specialty Phone Email Start Date End Da korin [facility] 12/07/2020 12/07/2020
--- OUTSIDE RECORDS SUMMARY | 2025-04-07 16:16 | XMS_ITS | Clinical Summary ---
Author Organization [facility] Address [address] [place] [address] Care Team Providers Care Nnps Name Role Phone Conor Vargas MD Primary [...] Last Done Comments Hepatitis C Screening 1965 MMR (Born [birth year] DTaP/Tdap/Td (1 - Tdap) 01/18/1982 Colon Cancer Screening 01/18/2009 Pneumococcal 50+ years (1 of 1 - PCV) 01/18/2014 Zoster (Shingrix) (1 of 2) 01/18/2014 COVID-19 Vaccine ( - 2024-2 6 season) 2024 Influenza (#1) 2024 RSV (1 - 1-dose 75+ series) 01/18/2039 HPV Vaccine (No Doses Required) Completed Hep A Aged Out No longer eligi [...] this topic Zoster (Zostavax) Discontinued Care Teams Nnps Relationship Specialty Start Date End Date Conor Vargas MD [address] [id number] PCP - General 11/25/22
--- OUTSIDE RECORDS SUMMARY | 2025-04-07 16:16 | XMS_ITS | Patient Health Record ---
Author Organization [facility] Address [address] [place] [address] Care Team Providers Care Granulizing Machine Operator Name Role Phone Michelle Streeter MD Primary Care Provider Thompson Garcia Jr Unavailable Allergies Allergen (clinical drug ingredient) Drug/Non Drug Allergy documented on EMR Reaction Allergy Type Onset Date Status amoxicillin Amoxicillin Unknown Drug Allergy Act deanna Results Component Value Reference Range Notes Pathology Reviewed date:07/08/2024 08:02:36 AM Interpretation: Performing Lab:[facility], [address] [place] [id number] Notes/Report: Reason For Referral No Information Medications Medication SIG (Take, Route, Frequency, Duration) Notes Start Date End Date Status Alfuzosin HCl ER 10 MG Tablet Extended Release 24 Hour Oral; Duration: 30 Active Multivitamin - Tablet 1 tablet Orally On ce a day; Duration: 30 day(s) Active MiraLax (colon prep) 17 GM/SCOOP Powder mixed with Gatorade or Crystal Light Orally begin at 5:00 p.m. the day before the procedure; Duration: 1 day 05/26/2024 Active Pantoprazole Sodium 40 MG Tablet Delayed Release TAKE 1 TABLET BY MOUTH EVERY DAY FOR 90 DAYS ORAL; Duration: 90 Active Immunizations Vaccine Route Administration Date Status Comme nts Influenza Unknown 12/20/2017 Administered Influenza Unknown 02/21/2022 Refused Influenza Unknown 05/26/2024 Refused Social History Social History Drugs/Alcohol: Social Info Question Answer Notes Alcohol Screen Did you have a drink containing alcohol in the past year? No Points 0 Interpretation Negative Additional Details Category Social Info Options Details Miscellaneous: Marital status: Occupation: livestock trucker Problems Problem Type SNOMED Code ICD Code Onset Dates Problem Status W/U Status Risk Notes Problem Colon cancer screening (301020828) Colon cancer screening (Z12.11) Active confirmed Problem Gastroesophageal reflux disease (620104738) Gastroesophageal reflux disease, esophagitis presence not specified (K21.9) Active confirmed Vital Signs Temperature 96.9 degrees Fahrenheit 05/26/2024 Blood pressure diastolic 00 mm Hg 05/26/2024 Height 73 in 05/26/2024 Blood pressure systolic 000 mm Hg 05/26/2024 Weight 258 lb 8 oz lbs 05/26/2024 BMI 34.10 kg/m2 05/26/2024 Encounters Encounter Location Date Provider Diagnosis [facility] Outpatient [address] [place] [phone] 07/06/2024 Thompson Fernandez Jr Colon cancer screening Z12.11 ; Personal history of adenomatous and serrated colon polyps Z86.0101 and Colon polyps K63.5 [facility] [address] [place] [phone] 05/26/2024 Thompson Fernandez Jr Gastroesophageal reflux disease, esophagitis presence not specified K21.9 and Colon cancer screening Z12.11 [facility] [address] [place] [phone] 07/05/2024 Thompson Fernandez Jr [facility] [address] [place] [phone] 07/08/2024 Thompson Fernandez Jr Assessments Encounter Date Diagnosis [...] Insured Coverage Start Date Coverage End Date [facility] [address] [place] [phone] [id number] MAYO JOSE Self - patient is the insured Medical (General) History Medical History History ICD Code Gastroesophageal reflux dise ase, EGD 12/19/17, no H. pylori or Juarez's esophagus. colon polyps, colonoscopy 07/08, tubular adenoma, five-year followup Right kidney oncocytoma BPH Hemorrhoids Surgical History Surgery Date(Month/Year) lumpectomy on chest
--- OUTSIDE RECORDS SUMMARY | 2025-04-07 16:16 | XMS_ITS | Clinical Summary ---
Author Organization [facility] Address [address] [place] [phone] Phone Care Team Providers Care Streetsweeper Operator Name Role Phone Michelle Streeter MD Primary Care Provider [phone] Allergies Active Allergy Reactions Criticality Noted Date Comments Amoxicillin Rash Low 04/08/2024 Finasteride Other (See Comments) 04/08/2024 Loss of genital sensation Penicillins Rash Low 04/08/2024 Tamsulosin Other (See Comments) 04/08/2024 drowsy Medications alfuzosin (UROXATRAL) 10 mg 24 hr tablet take 1 tablet by mouth every day at bedtime for 90 days 4 Active hydrocortisone acetate (ANUSOL-HC) 25 mg suppository UNWRAP AND INSERT 1 SUPPOSITORY (25 MG) RECTALLY AT BEDTIME 4 Active pantoprazole (PROTONIX) 40 MG tablet TAKE 1 TABLET BY MOUTH EVERY DAY FOR 90 DAYS ORAL 4 Active hydrocortisone (ANUSOL-HC) 2.5 % rectal cream Place rectally 2 (two) times a day. 30 g 4 Active Active Problems Problem Noted Date Diagnosed Date Renal mass 04/08/2024 BPH (benign prostatic hyperplasia) 04/08/2024 Nasal septal deviation 07/18/2020 Nasal vestibulitis 07/17/2020 Social History Tobacco Use Types Packs/Day Years Used Date Smoking Tobacco: Never Smokeless Tobacco: Never Education Answer Date Recorded Are you interested in more education? Not on iban e 03/31/2024 Are you concerned about learning? Not on file 03/31/2024 No 03/31/2024 No 03/31/2024 Digital Access Answer Date Recorded No 03/31/2024 No 03/31/2024 Reliable internet access at home? Not on file 03/31/2024 Device with a working camera? Not on file Sex and Gender Information Value Date Recorded Sex Assigned at Not on file Legal Sex Male 9:42 PM EDT Gender Identity Not on file Sexual Orientation Not on file Last Filed Vital Signs Vital Sign Reading Time Taken Comments Blood Pressure 122/68 04/12/2024 8:23 AM EST Pulse 76 04/12/2024 8:23 AM EST Temperature 36.8 C (98.2 F) 04/12/2024 8:23 AM EST Respiratory Rate - - Oxygen Saturation 99% 04/12/2024 8:23 AM EST Inhaled Oxygen Concentration - - Weight - - Height - - Body Mass Index - - Plan of Treatment Health Maintenance Due Date Last Done Comments Adult Td,Tdap Booster 1965 LIPID PANEL 1965 DEPRESSION SCREENING 1976 HEPATITIS C SCREENING 01/18/1982 HIV ONE-TIME SCREENING (18-6 5 YEARS) 01/18/1982 COLOGUARD 01/18/2009 COLONOSCOPY 01/18/2009 COLORECTAL CANCER SCREENING 01/18/2009 FIT TEST 01/18/2009 FOBT 01/18/2009 SIGMOIDOSCOPY 01/18/2009 VIRTUAL COLONOSCOPY 01/18/2009 PNEUMOCOCCAL VACCINES (50+ y ears) (1 of 1 - PCV) 01/18/2014 ZOSTER VACCINES (1 of 2) 01/18/2014 INFLUENZA VACCINE (#1) 2024 COVID-19 VACCINE (1 - 2024-2 6 season) 2024 RSV VACCINE (1 - 1-dose 75+ series) 01/18/2039 SMOKING STATUS SCREENING (On ce After 26 Yrs) Completed 04/12/2024 HEPATITIS A VACCINES Aged Out No long er eligible based on patient's age to complete this topic HIB VACCINES Aged Out No longer eligi ble based on patient's age to complete this topic MENINGOCOCCAL VACCINES (ACWY) Aged Out No longer eligible based on patient's age to complete this topic MENINGOCOCCAL VACCINES (B) Aged Out N o longer eligible based on patient's age to complete this topic Medical Devices Not on file Insurance S S S S S S Care Teams Streetsweeper Operator Relationship Specialty Start Date End Date Michelle Streeter MD [address] [place] [address] PCP - General Internal Medicine 03/26/24 Additional Source Comments The information contained in this document represents components of the legal health record. It is not the complete legal health record.[facility]
== END 2025-04-07 13:28 | disposition home or self-care (01) ==
LOC: HO.HMCC 12:27
PROVIDERS: PCP Internal Medicine; Visit Provider Internal Medicine
DX: E66.3 Overweight (principal); N40.0 Benign prostatic hyperplasia without lower urinary tract symptoms

== ENCOUNTER → 2025-04-07 12:27 | Outpatient (BNVA) | payer OTHER, SELFPAY | PROVIDERS: PCP Internal Medicine; Visit Provider Internal Medicine | DX: E66.3 Overweight (principal); N40.0 Benign prostatic hyperplasia without lower urinary tract symptoms; R31.9 Hematuria, unspecified; Z68.35 Body mass index [BMI] 35.0-35.9, adult | CPT/HCPCS: 96127 ==